=== PATIENT | female | born 1955 | race Caucasian/White ===

== ENCOUNTER 2018-09-15 14:50 | Inpatient (IN) | payer MEDICARE, OTHER ==
[~2018-09-15] VITALS: Ht 157.5 cm; Wt 70.8 kg
[2018-09-15] VITALS (8 sets, daily range): BP systolic 68–110; BP diastolic 45–62
[2018-09-15] MEDS ORDERED: IV NORMAL SALINE 1000ML BAG 1,000 ML IV ONE ×4 (15:30→18:45)
--- NOTE | 2018-09-15 15:50 | EKG ---
[facility] [address] [place] [address] Test Date: 2018-09-15 Test Time: 15:01:01 Pat Name: HERMINIO WASHINGTON Department: Room: Gender: F [employer]: : 1955 Requested By: ANILA CHEN Order Number: [id number] Reading MD: Nabil Chavez Measurements Intervals [place] Rate: 94 P: -25 [place]: 134 QRS: 3 QRSD: 84 T: 36 QT: 352 QTc: 446 Interpretive Statements SINUS RHYTHM VENTRICULAR PREMATURE COMPLEX(ES) ATRIAL PREMATURE COMPLEX(ES) QRS(T) CONTOUR ABNORMALITY CONSIDER ANTEROSEPTAL MYOCARDIAL DAMAGE ABNORMAL ECG RI6.01 No previous ECG available for comparison Electronically Signed On 09-22-2018 11:00:55 ILLUMINATOR by Nabil Chavez
[2018-09-15 15:53] LABS: BASO % 1 % (0-3); EOS % 0 % (0-3); HEMATOCRIT 40.2 % (36.0-47.0); HEMOGLOBIN 13.1 g/dL (12.0-15.5); LYMPH # 1.1 x10^3/uL (1.0-4.8); LYMPH % 18 % (24-48); MEAN CORPUSCULAR HEMOGLOBIN 30 pg (25-35); MEAN CORPUSCULAR HGB CONC 33 g/dL (31-37); MEAN CORPUSCULAR VOLUME 91 fL (79-100); MONO # 0.5 x10^3/uL (0.0-1.1); MONO % 8 % (0-9); NEUT # 4.3 x10^3uL (1.8-7.7); NEUT % 73 % (31-73); PLATELET COUNT 155 x10^3/uL (140-400); RED CELL DISTRIBUTION WIDTH 17.6 % (11.5-14.5); WHITE BLOOD COUNT 5.9 x10^3/uL (4.0-11.0)
--- NOTE | 2018-09-15 15:57 | PHYS DOC ---
Past Medical History Past Medical History: Depression, Hypertension, Other Additional Past Medical Histor: CHRONIC LOW BACK PAIN Past Surgical History: Hysterectomy, Other Additional Past Surgical Histo: CARPAL TUNNEL, ORTHOPEDIC BACK, ANKLE Alcohol Use: Heavy Drug Use: Opiates Social History Narrative: PAIN PUMP WITH MORPHINE AND FENTANYL Adult General Chief Complaint Chief Complaint: CHEST PAIN HPI HPI 63-year-old female presents to ER via EMS from her residence for complaints of dizziness intermittently since Friday. Patient states she has had 4 falls today following backwards and forwards. She reports she did strike her head denies loss of consciousness. Patient states today around 12 PM she started having midsternal chest pain which increases with inspiration. She reports this discomfort did start after her falls. Patient states it is a pressure and she's felt slightly short of air after her falls. Patient states she has had decreased blood pressures over the past couple of days. Patient states she has not taken any of her medications over the past several days which are cardiac medications and blood pressure medicine. Patient states she has chronic back pain and has a pain pump inserted in her right lower abdomen which provides fentanyl and morphine. Patient states she did go on a alcoholic binge last week with her last drink being on Friday. Patient denies any seizure-like activity. Patient denies any illicit drug use. Patient states she has had generalized fatigue denies any vomiting or diarrhea episodes. Patient states she has been having head pain, neck pain, and upper back pain since the falls. Patient states she has chronic lower back pain denies any acute change. Patient denies any incontinence of bowel. She reports she did have difficulty getting off of the floor following one of her falls and did have some incontinence of urine during the fall. Patient states she had control of her bladder after that and has had no other incontinent episodes. Patient states during one of her fall she did break her corrective lenses and has discomfort to the left side of her face. EMS administered aspirin 324 mg. Review of Systems Review of Systems Constitutional: Denies fever or chills. Reports generalized weakness/fatigue. Denies LOC Eyes: Denies change in visual acuity, redness, or eye pain. Reports tenderness at lt side of eye where her glasses broke during fall HENT: Denies nasal congestion/nose bleed or sore throat [] Respiratory: Denies cough. Reports SOA Cardiovascular:Reports mid CP GI: Denies abdominal pain, nausea, vomiting, bloody stools or diarrhea [] : Denies urinary sxs Musculoskeletal: Denies joint pain. Reports chronic lower back pain- denies acute changes since fall Integument: Denies rash or skin lesions [] Neurologic: Denies focal weakness or sensory changes. Reports diffuse CANALES after fall. Reports intermittent dizziness which has caused mult. falls Endocrine: Denies polyuria or polydipsia [] All other systems were reviewed and found to be within normal limits, except as documented in this note. Current Medications Current Medications Current Medications Medications (Trade) Dose Ordered Sig/Sunny Start Time Stop Time Status Last Admin Dose Admin Sodium Chloride 1,000 ml @ 1,000 mls/hr 1X ONCE 09/15/18 17:00 09/15/18 17:59 DC 09/15/18 17:09 1,000 MLS/HR Allergies Allergies Allergies Coded Allergies Type Severity Reaction Last Updated Verified tramadol Allergy Intermediate 04/19/16 Yes Physical Exam Physical Exam Constitutional: Well developed, well nourished, no acute distress, non-toxic appearance. Fatigued appearance. Clear speech- answering questions appropr. HENT: Normocephalic, swelling at lt adventist into lt maxillary around site of her corrective lenses w/bruising at adventist area- no abrasions/lacerations or open wounds, bilateral ears normal, mucous membranes pink/dry, no oral injury, nose normal. [] Eyes: 3mm PERRL, EOMI- no eye pain with movements, no nystagmus, conjunctiva normal, no discharge. [] Neck: Normal range of motion, initially denied neck pain- on palp. mid CSpine she had c/o tenderness- no palp. deformity/crepitus- CCollar placed on at time of initial exam, supple, no stridor. Trachea midline Cardiovascular: Heart rate regular rhythm, no murmur [] Lungs & Thorax: Bilateral breath sounds clear to auscultation. Resp. equal/ nonlabored. Tender on lt lateral side ribs with no palp. deformity/crepitus or visible injury Abdomen: Bowel sounds normal, soft, no tenderness- no rigidity/distention- palp. implanted pain pump rt lower abd- site is nontender, no masses, no pulsatile masses. [] Skin: Warm, dry Back: Tender on palp. upper/mid line thoracic spine- no palp. deformity/ crepitus or visible injury on back exam, no CVA tenderness. [] Extremities: Pelvis stable/nontender. No tenderness, no cyanosis, no clubbing, ROM intact, no edema. [] Neurologic: Alert and oriented X 3, normal motor function, normal sensory function, no focal deficits noted. [] Psychologic: Affect normal, judgement normal, mood normal. [] Current Patient Data Vital Signs Lab Values Laboratory Tests Test 09/15/18 15:40 09/15/18 16:31 White Blood Count 5.9 x10^3/uL (4.0-11.0) Red Blood Count 4.40 x10^6/uL (3.50-5.40) Hemoglobin 13.1 g/dL (12.0-15.5) Hematocrit 40.2 % (36.0-47.0) Mean Corpuscular Volume 91 fL (79-100) Mean Corpuscular Hemoglobin 30 pg (25-35) Mean Corpuscular Hemoglobin Concent 33 g/dL (31-37) Red Cell Distribution Width 17.6 % (11.5-14.5) H Platelet Count 155 x10^3/uL (140-400) Neutrophils (%) (Auto) 73 % (31-73) Lymphocytes (%) (Auto) 18 % (24-48) L Monocytes (%) (Auto) 8 % (0-9) Eosinophils (%) (Auto) 0 % (0-3) Basophils (%) (Auto) 1 % (0-3) Neutrophils # (Auto) 4.3 x10^3uL (1.8-7.7) Lymphocytes # (Auto) 1.1 x10^3/uL (1.0-4.8) Monocytes # (Auto) 0.5 x10^3/uL (0.0-1.1) Eosinophils # (Auto) 0.0 x10^3/uL (0.0-0.7) Basophils # (Auto) 0.0 x10^3/uL (0.0-0.2) Sodium Level 136 mmol/L (136-145) Potassium Level 3.2 mmol/L (3.5-5.1) L Chloride Level 88 mmol/L (98-107) L Carbon Dioxide Level > 45 mmol/L (21-32) H Anion Gap 3 (6-14) L Blood Urea Nitrogen 25 mg/dL (7-20) H Creatinine 1.4 mg/dL (0.6-1.0) H Estimated GFR (Cockcroft-Gault) 38.0 BUN/Creatinine Ratio 18 (6-20) Glucose Level 116 mg/dL (70-99) H Calcium Level 9.7 mg/dL (8.5-10.1) Magnesium Level 1.4 mg/dL (1.8-2.4) L Total Bilirubin 3.4 mg/dL (0.2-1.0) H Aspartate Amino Transferase (AST) 123 U/L (15-37) H Alanine Aminotransferase (ALT) 39 U/L (14-59) Alkaline Phosphatase 157 U/L (46-116) H Troponin I Quantitative 0.019 ng/mL (0.000-0.055) Total Protein 6.6 g/dL (6.4-8.2) Albumin 2.8 g/dL (3.4-5.0) L Albumin/Globulin Ratio 0.7 (1.0-1.7) L Ethyl Alcohol Level < 10 mg/dL (0-10) O2 Saturation 97 % (92-99) Arterial Blood pH 7.54 (7.35-7.45) H Arterial Blood pCO2 at Patient Temp 49 mmHg (35-46) H Arterial Blood pO2 at Patient Temp 88 mmHg (65-108) Arterial Blood HCO3 41 mmol/L (21-28) H Arterial Blood Base Excess 16 mmol/L (-3-3) H Oxyhemoglobin 95.9 % Methemoglobin 0.3 % (0.0-1.9) Carbon Monoxide, Quantitative 0.4 % (0.0-1.9) FiO2 28% nc Laboratory Tests 09/15/18 15:40 Laboratory Tests 09/15/18 15:40 EKG EKG EKG obtained 09/15/18 at [address] Linares Sinus rhythm PVCs/PACs Rate 94 No STEMI Radiology/Procedures Radiology/Procedures PROCEDURE: CHEST AP ONLY EXAM: Chest, single view. HISTORY: Chest pain. COMPARISON: None. FINDINGS: A frontal view of the chest obtained. There is no infiltrate, pleural effusion or pneumothorax. The heart is normal in size. There is a calcified granuloma within the left upper lobe. IMPRESSION: No acute pulmonary finding. Electronically signed by: Jessenia Matias MD (09/15/2018 3:53 PM) [place] [id number] DICTATED and SIGNED BY: JESSENIA MATIAS MD DATE: 09/15/18 1552 PROCEDURE: CT HEAD AND CERVICAL SPINE WO CT HEAD AND CERVICAL SPINE WO Clinical indications: MULTIPLE FALLS TODAY, DIZZINESS, NECK PAIN NONCONTRAST HEAD CT COMPARISON: April 20, 2016. Technique: Noncontrast axial cross sectional scanning of the head was performed. PQRS compliance Statement One or more of the following individualized dose reduction techniques were utilized for this study: 1. Automated exposure control 2. Adjustment of the mA and/or kV according to patient size 3. Use of iterative reconstruction technique Findings: No acute intracranial hemorrhage or midline shift or mass-effect or hydrocephalus or extra-axial fluid collection is seen. No focal hypodense area or sulci effacement is seen to indicate an acute infarct or edema radiographically. No skull fracture or pneumocephalus is seen. No opacification of the mastoid sinuses or the middle ear cavities is seen. Impression: No acute intracranial abnormality is seen. CERVICAL SPINE CT WITHOUT CONTRAST TECHNIQUE: Noncontrast helical CT scanning of the cervical spine was performed. Multiplanar 2-D reconstructions were generated. FINDINGS: There is grade 1 anterolisthesis of C4-5 which is new since the previous study. This is secondary to degenerative facet arthropathy. No acute fracture or perching of facet joints is evident. There is retrolisthesis of C6 on C7 with loss of the disc space here. There is severe degenerative disc space narrowing at C5-6. These findings were seen previously. No lytic process or discitis is seen. IMPRESSION: No acute fracture. Degenerative cervical spondylosis. Electronically signed by: Owen Gonzalez MD (09/15/2018 4:23 PM) [facility] DICTATED and SIGNED BY: OWEN GONZALEZ MD DATE: 09/15/18 1613 PROCEDURE: CT MAXILLOFACIAL WO CONTRAST EXAM: CT FACIAL BONES WITHOUT CONTRAST History: Fall, pain COMPARISON: None TECHNIQUE: Noncontrast images of the facial bones are performed. Coronal and sagittal reformatted images are also presented for interpretation. Exposure: One or more of the following individualized dose reduction techniques were utilized for this examination: 1. Automated exposure control 2. Adjustment of the mA and/or kV according to patient size 3. Use of iterative reconstruction technique FINDINGS: No fracture, dislocation or other acute bony abnormality is identified. There is a 1.2 cm density in the left cheek region could be secondary to soft tissue injury. The paranasal sinuses and mastoid air cells are clear, without air-fluid levels. The globes and orbits are intact in CT appearance. There is no retrobulbar hematoma. IMPRESSION: 1. 1.2 cm density identified in the left cheek region probably secondary to soft tissue injury. 2. No acute osseous findings. Electronically signed by: Yamil Cárdenas MD (09/15/2018 4:33 PM) [id number] DICTATED and SIGNED BY: YAMIL CÁRDENAS MD DATE: 09/15/181622 Course & Med Decision Making Course & Med Decision Making Pertinent Labs and Imaging studies reviewed. (See chart for details) Discussed test results with pt- CCollar was removed following CT results of CSpine with no acute findings. EKG with no acute STEMI and troponin was <0.017. She remains A&Ox3. Her BP remains in 80-90 systolics. IV flds infusing. She has had no change in MS. Discussed thoracic CT results with nondisplaced fx at lt side 12th rib- which pt is tender at this site. No crepitus on re-exam and no visible injury/bruising at site. She does have soft tissue swelling lt side face at site of her glasses- she had broke lt lense during fall. She denies eye pain. She reports without lt lense her vision is blurred which is NL without her glasses on she reports. She denies CP/SOA. Discussed admission and she is agreeable with plan. Pt's labs showed K+ at 3.2 and Mg at 1.4 so PO replacement ordered. Pt's CO2 on labs was >45 she was placed on O2 at time of arrival with O2 sat at 88% so ABGs were obtained on O2 at 2L via NC and results were given to Dr. Linares by RT- with improved O2 sat of 97% and CO2 improved. EKG with no acute ST elevation/STEMI and troponin was 0.019. 1740: Spoke with Dr. Sesay, hospitalist and discussed pt's case and admit plan. With pt having etoh hx/hypotension will admit ICU for further eval. and monitoring. Pt has continued to have fluctuation in BP- after 1L NS bolus BP currently 89/56 HR 89 O2 sat 100% with O2 via NC at 2L. 2nd L NS bolus being given. Pt has remained A&Ox3 with no seizure like activity or change in MS. [place] Disclaimer [place] Disclaimer This electronic medical record was generated, in whole or in part, using a voice recognition dictation system. Departure Departure Referrals: LIBIA CUELLO (PCP) [place] Potassium Chloride (POTASSIUM CHLORIDE) 20 Meq Tablet.er 20 MEQ PO BID for diuretic therapy for 7 Days, #14 TAB.SR Prov: KEL IVORY MD 09/23/18 Bumetanide (BUMETANIDE) 1 Mg Tablet 1 TAB PO BID for edema for 7 Days, #14 TAB 1 Refill Prov: KEL IVORY MD 09/23/18 Ciprofloxacin (CIPRO) 500 Mg/5 Ml Doris.mc.rec 500 MG PO BID for UTI for 3 Days, #6 SUSPENSION Prov: KEL IVORY MD 09/23/18 Thiamine Mononitrate (VITAMIN B-1) 100 Mg Tablet 100 MG PO DAILY for SUPPLEMENT for 30 Days, #30 TAB Prov: KEL IVORY MD 09/23/18 Folic Acid (FOLIC ACID) 1 Mg Tablet 1 MG PO DAILY for SUPPLEMENT for 30 Days, #30 TAB Prov: KEL IVORY MD 09/23/18 Critical Care Time Critical care time was 30-45 minutes exclusive of procedures. ANILA CHEN APRN Sep 15, 2018 15:57
[2018-09-15 16:11] LABS: BLOOD UREA NITROGEN 25 mg/dL (7-20); BUN/CREATININE RATIO 18 (6-20); CALCIUM 9.7 mg/dL (8.5-10.1); CHLORIDE 88 mmol/L (98-107); CREATININE 1.4 mg/dL (0.6-1.0); GLUCOSE 116 mg/dL (70-99); POTASSIUM 3.2 mmol/L (3.5-5.1); SODIUM 136 mmol/L (136-145)
[2018-09-15 16:16] LABS: ALBUMIN 2.8 g/dL (3.4-5.0); ALBUMIN/GLOBULIN RATIO 0.7 (1.0-1.7); ALK PHOS 157 U/L (46-116); ALT (SGPT) 39 U/L (14-59); AST (SGOT) 123 U/L (15-37); MAGNESIUM 1.4 mg/dL (1.8-2.4); TOTAL BILIRUBIN 3.4 mg/dL (0.2-1.0); TOTAL PROTEIN 6.6 g/dL (6.4-8.2)
[2018-09-15 16:20] LABS: ANION GAP 3 (6-14); CARBON DIOXIDE > 45 mmol/L (21-32)
--- NOTE | 2018-09-15 16:22 | RAD ---
EXAM: Thoracic spine CT without contrast. HISTORY: Falls. Pain. TECHNIQUE: Computed tomographic images of the lumbar spine were obtained without contrast. Multiplanar reformatting was performed. *One or more of the following individualized dose reduction techniques were utilized for this examination: 1. Automated exposure control. 2. Adjustment of the mA and/or kV according to patient size. 3. Use of iterative reconstruction technique. COMPARISON: None. FINDINGS: There is mild thoracic scoliosis. There is minimal anterolisthesis at the upper thoracic levels. There is minimal degenerative endplate remodeling with anterior spurring at the mid and lower thoracic levels. There is no suspicious lytic or sclerotic osseous lesion. There is and intrathecal pain pump terminating within the left dorsal aspect of the central canal at the mid aspect of T9. There is degenerative change involving the cervical spine, better characterized on the cervical spine CT performed on the same date. There is cervical kyphosis and multilevel listhesis and complete loss of disc space at C6-C7. There is lucency traversing the medial aspect of the left 12th rib at the costovertebral junction, possibly a nondisplaced fracture. There is a suspected healed fracture involving the posterior left 11th rib. There are disc bulges at multiple levels. There is no significant thoracic foraminal or central canal stenosis. There is posterior dependent atelectasis. There is no pleural effusion or pneumothorax. There are calcified granulomas. The heart is normal in size. There is hepatic steatosis. IMPRESSION: 1. Lucency traversing the medial aspect of the left 12th rib near the costovertebral junction, suggesting a nondisplaced fracture. Correlate for pain in this location. 2. Mild multilevel degenerative change throughout the thoracic spine. 3. Degenerative change involving the cervical spine. Please refer to the separate cervical spine CT report on the same date for details regarding the cervical spine. 4. Hepatic steatosis. 5. Intrathecal pain pump terminating at T9. Electronically signed by: Jessenia Rios MD (09/15/2018 4:19 PM) [place] [id number]
--- NOTE | 2018-09-15 16:26 | RAD ---
CT HEAD AND CERVICAL SPINE WO Clinical indications: MULTIPLE FALLS TODAY, DIZZINESS, NECK PAIN NONCONTRAST HEAD CT COMPARISON: April 20, 2016. Technique: Noncontrast axial cross sectional scanning of the head was performed. PQRS compliance Statement One or more of the following individualized dose reduction techniques were utilized for this study: 1. Automated exposure control 2. Adjustment of the mA and/or kV according to patient size 3. Use of iterative reconstruction technique Findings: No acute intracranial hemorrhage or midline shift or mass-effect or hydrocephalus or extra-axial fluid collection is seen. No focal hypodense area or sulci effacement is seen to indicate an acute infarct or edema radiographically. No skull fracture or pneumocephalus is seen. No opacification of the mastoid sinuses or the middle ear cavities is seen. Impression: No acute intracranial abnormality is seen. CERVICAL SPINE CT WITHOUT CONTRAST TECHNIQUE: Noncontrast helical CT scanning of the cervical spine was performed. Multiplanar 2-D reconstructions were generated. FINDINGS: There is grade 1 anterolisthesis of C4-5 which is new since the previous study. This is secondary to degenerative facet arthropathy. No acute fracture or perching of facet joints is evident. There is retrolisthesis of C6 on C7 with loss of the disc space here. There is severe degenerative disc space narrowing at C5-6. These findings were seen previously. No lytic process or discitis is seen. IMPRESSION: No acute fracture. Degenerative cervical spondylosis. Electronically signed by: Murphy Gonzalez MD (09/15/2018 4:23 PM) [facility]
--- NOTE | 2018-09-15 16:36 | RAD ---
EXAM: CT FACIAL BONES WITHOUT CONTRAST History: Fall, pain COMPARISON: None TECHNIQUE: Noncontrast images of the facial bones are performed. Coronal and sagittal reformatted images are also presented for interpretation. Exposure: One or more of the following individualized dose reduction techniques were utilized for this examination: 1. Automated exposure control 2. Adjustment of the mA and/or kV according to patient size 3. Use of iterative reconstruction technique FINDINGS: No fracture, dislocation or other acute bony abnormality is identified. There is a 1.2 cm density in the left cheek region could be secondary to soft tissue injury. The paranasal sinuses and mastoid air cells are clear, without air-fluid levels. The globes and orbits are intact in CT appearance. There is no retrobulbar hematoma. IMPRESSION: 1. 1.2 cm density identified in the left cheek region probably secondary to soft tissue injury. 2. No acute osseous findings. Electronically signed by: Yamil Cárdenas MD (09/15/2018 4:33 PM) [id number]
[2018-09-15 17:14] LABS: BASE EXCESS COOX 16 mmol/L (-3-3); HCO3 COOX 41 mmol/L (21-28); METHEMOGLOBIN 0.3 % (0.0-1.9); OXYHEMOGLOBIN 95.9 %; PCO2 COOX 49 mmHg (35-46); PO2 COOX 88 mmHg (65-108); SAT O2 COOX 97 % (92-99)
[2018-09-15] MEDS ORDERED: ONDANSETRON PF 4 MG/2 ML VIAL. IV PRN (18:15)
[2018-09-15] MEDS ORDERED: ACETAMINOPHEN 325 MG TABLET. PO PRN (18:15)
[2018-09-15] MEDS ORDERED: POTASSIUM CHLORIDE 20 MEQ TABLET.ER. PO ONE ×2 (18:15→22:00)
[2018-09-15] MEDS: MAGNESIUM OXIDE 400 MG TABLET PO SCH (18:50)
[2018-09-15 18:55] LABS: BILIRUBIN,URINE SMALL (NEG); CLARITY,URINE CLOUDY; COLOR,URINE AMBER; NITRITE,URINE NEGATIVE (NEG); PH,URINE 6.5; PROTEIN,URINE NEGATIVE (NEG-TRACE)
[2018-09-15 19:08] LABS: HYALINE CASTS, URINE MANY /HPF; SQUAMOUS EPITHELIAL CELL,UR MOD /LPF
[2018-09-15 19:10] LABS: BACTERIA,URINE MANY /HPF (0-FEW); RBC,URINE 0 /HPF (0-2); WBC,URINE >40 /HPF (0-4)
[2018-09-15 19:13] LABS: GRANULAR CASTS,URINE OCCASIONAL /HPF
--- NOTE | 2018-09-15 21:28 | PDOC1 ---
History and Physical Date of Admission Date of Admission DATE: 09/15/18 TIME: 21:28 Identification/Chief Complaint Chief Complaint SEEN IN ER WITH complaints of dizziness intermittently since Friday. Patient states she has had 4 falls today following backwards and forwards. She reports she did strike her head denies loss of consciousness. Patient states today around 12 PM she started having midsternal chest pain which increases with inspiration. She reports this discomfort did start after her falls. Patient states it is a pressure and she's felt slightly short of air after her falls. Patient states she has had decreased blood pressures over the past couple of days. Patient states she has not taken any of her medications over the past several days which are cardiac medications and blood pressure medicine. Patient states she has chronic back pain and has a pain pump inserted in her right lower abdomen which provides fentanyl and morphine. Patient states she did go on a alcoholic binge last week with her last drink being on Friday. Patient denies any seizure-like activity. Patient denies any illicit drug use.States she began drinking heavily after the of her a few yrs ago Past Medical History Past Medical History Past Medical History Past Medical History: Depression, Hypertension, Other Additional Past Medical Histor: CHRONIC LOW BACK PAIN Past Surgical History: Hysterectomy, Other Additional Past Surgical Histo: CARPAL TUNNEL, ORTHOPEDIC BACK, ANKLE Alcohol Use: Heavy Drug Use: Opiates Social History Narrative: PAIN PUMP WITH MORPHINE AND FENTANYL fhx depression Past Surgical History Past Surgical History: Other Family History Family History: Depression, Drug Abuse Social History Smoke: No ALCOHOL: heavy Drugs: None Current Problem List Problem List Problems Medical Problems: (1) Chest pain Status: Acute (2) Fall Status: Acute (3) Shortness of breath Status: Acute Current Medications Current Medications Current Medications Sodium Chloride 1,000 ml @ 1,000 mls/hr 1X ONCE IV Last administered on at 15:35; Start 09/15/18 at 15:30; Stop 09/15/18 at 16:29; Status DC Sodium Chloride 1,000 ml @ 1,000 mls/hr 1X ONCE IV Last administered on at 17:09; Start 09/15/18 at 17:00; Stop 09/15/18 at 17:59; Status DC Magnesium Oxide (Magnesium Oxide) 400 mg DAILY PO Last administered on at 18:50; Start 09/15/18 at 18:15 Potassium Chloride (Klor-Con) 40 meq 1X ONCE PO Last administered on at 18:50; Start 09/15/18 at 18:15; Stop 09/15/18 at 18:16; Status DC Ondansetron HCl (Zofran) 4 mg PRN Q8HRS PRN IV NAUSEA/VOMITING; Start 09/15/18 at 18:15; Stop 09/16/18 at 18:14 Acetaminophen (Tylenol) 650 mg PRN Q4HRS PRN PO FEVER; Start 09/15/18 at 18:15 ; Stop 09/16/18 at 18:14 Sodium Chloride 1,000 ml @ 1,000 mls/hr 1X ONCE IV Last administered on at 18:51; Start 09/15/18 at 18:45; Stop 09/15/18 at 19:44; Status DC Sodium Chloride 1,000 ml @ 150 mls/hr 1X ONCE IV ; Start 09/15/18 at 18:45; Stop 09/16/18 at 01:24 Allergies Allergies: Coded Allergies: tramadol (Verified Allergy, Intermediate, 04/19/16) ROS Review of System Review of Systems Review of Systems Constitutional: Denies fever or chills [] Eyes: Denies change in visual acuity, redness, or eye pain [] HENT: Denies nasal congestion or sore throat [] Respiratory: Denies cough or shortness of breath [] Cardiovascular: No additional information not addressed in HPI [] GI: Denies abdominal pain, nausea, vomiting, bloody stools or diarrhea [] : Denies dysuria or hematuria [] Musculoskeletal: Denies back pain or joint pain [] Integument: Denies rash or skin lesions [] Neurologic: Denies headache, focal weakness or sensory changes [] Endocrine: Denies polyuria or polydipsia [] 14 pt systems were reviewed and found to be within normal limits, except as documented General: YES: Fatigue PSYCHOLOGICAL ROS: YES: Anxiety, Depression HEENT: No: Heacaches, Visual Changes, Hearing change, Nasal congestion, Nasal discharge, Oral lesions, Sinus pain, Sore Throat, Epistaxis, Sneezing, Snoring, Tinnitus, Vertigo, Vocal changes, Other ALLERGY AND IMMUNOLOGY: No: Hives, Insect Bite Sensitivity, Itchy/Watery Eyes, Nasal Congestion, Post Nasal Drip, Seasonal Allergies, Other Hematological and Lymphatic: No: Bleeding Problems, Blood Clots, Blood Transfusions, Brusing, Night Sweats, Pallor, Swollen Lymph Nodes, Other ENDOCRINE: No: Breast Changes, Galactorrhea, Hair Pattern Changes, Hot Flashes , Malaise/lethargy, Mood Swings, Palpitations, Polydipsia/polyuria, Skin Changes , Temperature Intolerance, Unexpected Weight Changes, Other Respiratory: No: Cough, Hemoptysis, Orthopnea, Pleuritic Pain, Shortness of breath, SOB with excertion, Sputum Changes, Stridor, Tachypnea, Wheezing, Other Cardiovascular: yes Chest Pain Genitourinary: No Dysuria, No Frequency, No Incontinence, No Hematuria, No Retention, No Discharge, No Urgency, No Pain, No Flank Pain, No Other, No , No , No , No , No , No , No Musculoskeletal: Yes Gait Disturbance, Yes Joint Stiffness Neurological: Yes Dizziness, Yes Gait Disturbance Physical Exam Physical Exam Physical Exam Physical Exam Constitutional: Well developed, well nourished, no acute distress, non-toxic appearance. [] HENT: Normocephalic, atraumatic, bilateral external ears normal, oropharynx moist, no oral exudates, nose normal. [] Eyes: PERRLA, EOMI, conjunctiva normal, no discharge. [] Neck: Normal range of motion, no tenderness, supple, no stridor. [] Cardiovascular:Heart rate regular rhythm, no murmur [] Lungs & Thorax: Bilateral breath sounds clear to auscultation [] Abdomen: Bowel sounds normal, soft, no tenderness, no masses, no pulsatile masses. [] Skin: Warm, dry, no erythema, no rash. [] Back: No tenderness, no CVA tenderness. [] Extremities: No tenderness, no cyanosis, no clubbing, ROM intact, no edema. [] Neurologic: Alert and oriented X 3, normal motor function, normal sensory function, no focal deficits noted. [] Psychologic: Affect normal, judgement poor, mood depressed. [] General: Oriented X3, Cooperative, mild distress HEENT: PERRLA, EOMI Lungs: Clear to auscultation Heart: RRR Breasts: Not examined Abdomen: Normal bowel sounds, Soft Rectal Exam: not examined PELVIC: Examination not indicated Extremities: No cyanosis, No edema Neuro: Normal speech, Cranial nerves 3-12 NL Vitals Vitals Vital Signs Date Time Temp Pulse Resp B/P (MAP) Pulse Ox O2 Delivery O2 Flow Rate FiO2 09/15/18 19:20 108/64 (79) 09/15/18 18:36 86 16 100 09/15/18 17:30 Room Air 09/15/18 15:09 97.9 97.9 Labs Labs Laboratory Tests Test 09/15/18 15:40 09/15/18 16:31 09/15/18 18:33 White Blood Count 5.9 x10^3/uL (4.0-11.0) Red Blood Count 4.40 x10^6/uL (3.50-5.40) Hemoglobin 13.1 g/dL (12.0-15.5) Hematocrit 40.2 % (36.0-47.0) Mean Corpuscular Volume 91 fL (79-100) Mean Corpuscular Hemoglobin 30 pg (25-35) Mean Corpuscular Hemoglobin Concent 33 g/dL (31-37) Red Cell Distribution Width 17.6 % (11.5-14.5) Platelet Count 155 x10^3/uL (140-400) Neutrophils (%) (Auto) 73 % (31-73) Lymphocytes (%) (Auto) 18 % (24-48) Monocytes (%) (Auto) 8 % (0-9) Eosinophils (%) (Auto) 0 % (0-3) Basophils (%) (Auto) 1 % (0-3) Neutrophils # (Auto) 4.3 x10^3uL (1.8-7.7) Lymphocytes # (Auto) 1.1 x10^3/uL (1.0-4.8) Monocytes # (Auto) 0.5 x10^3/uL (0.0-1.1) Eosinophils # (Auto) 0.0 x10^3/uL (0.0-0.7) Basophils # (Auto) 0.0 x10^3/uL (0.0-0.2) Sodium Level 136 mmol/L (136-145) Potassium Level 3.2 mmol/L (3.5-5.1) Chloride Level 88 mmol/L (98-107) Carbon Dioxide Level > 45 mmol/L (21-32) Anion Gap 3 (6-14) Blood Urea Nitrogen 25 mg/dL (7-20) Creatinine 1.4 mg/dL (0.6-1.0) Estimated GFR (Cockcroft-Gault) 38.0 BUN/Creatinine Ratio 18 (6-20) Glucose Level 116 mg/dL (70-99) Calcium Level 9.7 mg/dL (8.5-10.1) Magnesium Level 1.4 mg/dL (1.8-2.4) Total Bilirubin 3.4 mg/dL (0.2-1.0) Aspartate Amino Transf (AST/SGOT) 123 U/L (15-37) Alanine Aminotransferase (ALT/SGPT) 39 U/L (14-59) Alkaline Phosphatase 157 U/L (46-116) Troponin I Quantitative 0.019 ng/mL (0.000-0.055) Total Protein 6.6 g/dL (6.4-8.2) Albumin 2.8 g/dL (3.4-5.0) Albumin/Globulin Ratio 0.7 (1.0-1.7) Ethyl Alcohol Level < 10 mg/dL (0-10) O2 Saturation 97 % (92-99) Arterial Blood pH 7.54 (7.35-7.45) Arterial Blood pCO2 at Patient Temp 49 mmHg (35-46) Arterial Blood pO2 at Patient Temp 88 mmHg (65-108) Arterial Blood HCO3 41 mmol/L (21-28) Arterial Blood Base Excess 16 mmol/L (-3-3) Oxyhemoglobin 95.9 % Methemoglobin 0.3 % (0.0-1.9) Carbon Monoxide, Quantitative 0.4 % (0.0-1.9) FiO2 28% nc Urine Collection Type Unknown Urine Color [place] Urine Clarity Cloudy Urine pH 6.5 Urine Specific [place] 1.015 Urine Protein Negative mg/dL (NEG-TRACE) Urine Glucose (UA) Negative mg/dL (NEG) Urine Ketones (Stick) Negative mg/dL (NEG) Urine Blood Negative (NEG) Urine Nitrite Negative (NEG) Urine Bilirubin Small (NEG) Urine Urobilinogen Dipstick 2.0 mg/dL (0.2 mg/dL) Urine Leukocyte Esterase Large (NEG) Urine RBC 0 /HPF (0-2) Urine WBC >40 /HPF (0-4) Urine Squamous Epithelial Cells Mod /LPF Urine Transitional Epithelial Cells Few /LPF Urine Renal Epithelial Cells Occ /LPF Urine Bacteria Many /HPF (0-FEW) Urine Hyaline Casts Many /HPF Urine Granular Casts Occasional /HPF Urine Mucus Slight /LPF Laboratory Tests Test 09/15/18 15:40 09/15/18 16:31 09/15/18 18:33 White Blood Count 5.9 x10^3/uL (4.0-11.0) Red Blood Count 4.40 x10^6/uL (3.50-5.40) Hemoglobin 13.1 g/dL (12.0-15.5) Hematocrit 40.2 % (36.0-47.0) Mean Corpuscular Volume 91 fL (79-100) Mean Corpuscular Hemoglobin 30 pg (25-35) Mean Corpuscular Hemoglobin Concent 33 g/dL (31-37) Red Cell Distribution Width 17.6 % (11.5-14.5) Platelet Count 155 x10^3/uL (140-400) Neutrophils (%) (Auto) 73 % (31-73) Lymphocytes (%) (Auto) 18 % (24-48) Monocytes (%) (Auto) 8 % (0-9) Eosinophils (%) (Auto) 0 % (0-3) Basophils (%) (Auto) 1 % (0-3) Neutrophils # (Auto) 4.3 x10^3uL (1.8-7.7) Lymphocytes # (Auto) 1.1 x10^3/uL (1.0-4.8) Monocytes # (Auto) 0.5 x10^3/uL (0.0-1.1) Eosinophils # (Auto) 0.0 x10^3/uL (0.0-0.7) Basophils # (Auto) 0.0 x10^3/uL (0.0-0.2) Sodium Level 136 mmol/L (136-145) Potassium Level 3.2 mmol/L (3.5-5.1) Chloride Level 88 mmol/L (98-107) Carbon Dioxide Level > 45 mmol/L (21-32) Anion Gap 3 (6-14) Blood Urea Nitrogen 25 mg/dL (7-20) Creatinine 1.4 mg/dL (0.6-1.0) Estimated GFR (Cockcroft-Gault) 38.0 BUN/Creatinine Ratio 18 (6-20) Glucose Level 116 mg/dL (70-99) Calcium Level 9.7 mg/dL (8.5-10.1) Magnesium Level 1.4 mg/dL (1.8-2.4) Total Bilirubin 3.4 mg/dL (0.2-1.0) Aspartate Amino Transf (AST/SGOT) 123 U/L (15-37) Alanine Aminotransferase (ALT/SGPT) 39 U/L (14-59) Alkaline Phosphatase 157 U/L (46-116) Troponin I Quantitative 0.019 ng/mL (0.000-0.055) Total Protein 6.6 g/dL (6.4-8.2) Albumin 2.8 g/dL (3.4-5.0) Albumin/Globulin Ratio 0.7 (1.0-1.7) Ethyl Alcohol Level < 10 mg/dL (0-10) O2 Saturation 97 % (92-99) Arterial Blood pH 7.54 (7.35-7.45) Arterial Blood pCO2 at Patient Temp 49 mmHg (35-46) Arterial Blood pO2 at Patient Temp 88 mmHg (65-108) Arterial Blood HCO3 41 mmol/L (21-28) Arterial Blood Base Excess 16 mmol/L (-3-3) Oxyhemoglobin 95.9 % Methemoglobin 0.3 % (0.0-1.9) Carbon Monoxide, Quantitative 0.4 % (0.0-1.9) FiO2 28% nc Urine Collection Type Unknown Urine Color [place] Urine Clarity Cloudy Urine pH 6.5 Urine Specific [place] 1.015 Urine Protein Negative mg/dL (NEG-TRACE) Urine Glucose (UA) Negative mg/dL (NEG) Urine Ketones (Stick) Negative mg/dL (NEG) Urine Blood Negative (NEG) Urine Nitrite Negative (NEG) Urine Bilirubin Small (NEG) Urine Urobilinogen Dipstick 2.0 mg/dL (0.2 mg/dL) Urine Leukocyte Esterase Large (NEG) Urine RBC 0 /HPF (0-2) Urine WBC >40 /HPF (0-4) Urine Squamous Epithelial Cells Mod /LPF Urine Transitional Epithelial Cells Few /LPF Urine Renal Epithelial Cells Occ /LPF Urine Bacteria Many /HPF (0-FEW) Urine Hyaline Casts Many /HPF Urine Granular Casts Occasional /HPF Urine Mucus Slight /LPF Images Images EXAM: CT FACIAL BONES WITHOUT CONTRAST History: Fall, pain COMPARISON: None TECHNIQUE: Noncontrast images of the facial bones are performed. Coronal and sagittal reformatted images are also presented for interpretation. Exposure: One or more of the following individualized dose reduction techniques were utilized for this examination: 1. Automated exposure control 2. Adjustment of the mA and/or kV according to patient size 3. Use of iterative reconstruction technique FINDINGS: No fracture, dislocation or other acute bony abnormality is identified. There is a 1.2 cm density in the left cheek region could be secondary to soft tissue injury. The paranasal sinuses and mastoid air cells are clear, without air-fluid levels. The globes and orbits are intact in CT appearance. There is no retrobulbar hematoma. IMPRESSION: 1. 1.2 cm density identified in the left cheek region probably secondary to soft tissue injury. 2. No acute osseous findings. Electronically signed by: Yamil Cárdenas MD (09/15/2018 4:33 PM) [facility] CT HEAD AND CERVICAL SPINE WO Clinical indications: MULTIPLE FALLS TODAY, DIZZINESS, NECK PAIN NONCONTRAST HEAD CT COMPARISON: April 20, 2016. Technique: Noncontrast axial cross sectional scanning of the head was performed. PQRS compliance Statement One or more of the following individualized dose reduction techniques were utilized for this study: 1. Automated exposure control 2. Adjustment of the mA and/or kV according to patient size 3. Use of iterative reconstruction technique Findings: No acute intracranial hemorrhage or midline shift or mass-effect or hydrocephalus or extra-axial fluid collection is seen. No focal hypodense area or sulci effacement is seen to indicate an acute infarct or edema radiographically. No skull fracture or pneumocephalus is seen. No opacification of the mastoid sinuses or the middle ear cavities is seen. Impression: No acute intracranial abnormality is seen. CERVICAL SPINE CT WITHOUT CONTRAST TECHNIQUE: Noncontrast helical CT scanning of the cervical spine was performed. Multiplanar 2-D reconstructions were generated. FINDINGS: There is grade 1 anterolisthesis of C4-5 which is new since the previous study. This is secondary to degenerative facet arthropathy. No acute fracture or perching of facet joints is evident. There is retrolisthesis of C6 on C7 with loss of the disc space here. There is severe degenerative disc space narrowing at C5-6. These findings were seen previously. No lytic process or discitis is seen. IMPRESSION: No acute fracture. Degenerative cervical spondylosis. Electronically signed by: Owen Gonzalez MD (09/15/2018 4:23 PM) [facility] DICTATED and SIGNED BY: OWEN GONZALEZ MD DATE: 09/15/18 1613 VTE Prophylaxis Ordered VTE Prophylaxis Devices: Yes VTE Pharmacological Prophylaxi: Yes Assessment/Plan Assessment/Plan impression 1. MULTIPLE FALLS 2. grade 1 anterolisthesis of C4-5 which is new since the previous study. This is secondary to degenerative facet arthropathy. 3. Alcohol abuse 4. depression 5. hypotension sec to hypovolemia 6. uti 7. chest discomfort plan icu bed iv fluid support alcohol withdrawal precautions iv rocephin blood cult prn pressors iv cardiology consult echo 45 min cc time JEFERSON SPRINGER MD Sep 15, 2018 21:28
[2018-09-15] MEDS: IV NORMAL SALINE 1000ML BAG 1,500 ML IV SCH ×2 (21:44→22:43)
[2018-09-15] MEDS ORDERED: HALOPERIDOL LACTATE 5 MG/ML VIAL. IVP PRN (21:45)
[2018-09-15] MEDS ORDERED: IV NORMAL SALINE 500ML BAG 500 ML IV PRN (21:45)
[2018-09-15] MEDS ORDERED: NOREPINEPHRIN 8MG/250ML PREMIX 250 ML IV PRN (21:45)
[2018-09-15] MEDS ORDERED: diphenhydrAMINE 50 MG/ML VIAL IVP PRN (21:45)
[2018-09-15] MEDS ORDERED: LORazepam 1 MG TABLET PO PRN ×2 (21:45)
[2018-09-15] MEDS ORDERED: cloNIDine HCL 0.1 MG TABLET PO PRN (21:45)
[2018-09-15] MEDS ORDERED: MAGNESIUM SULFATE 1GM 100 ML IV ONE (22:00)
[2018-09-15] MEDS: cefTRIAXone IV Push 2 GM VIAL. IVP SCH (22:27)
[2018-09-15 22:48] LABS: PROTHROMBIN TIME PATIENT 14.1 SEC (11.7-14.0)
[2018-09-15 22:52] LABS: ALBUMIN 2.2 g/dL (3.4-5.0); DIRECT BILIRUBIN 1.6 mg/dL (0.0-0.2); TOTAL BILIRUBIN 2.1 mg/dL (0.2-1.0); TOTAL PROTEIN 5.1 g/dL (6.4-8.2)
[2018-09-16] VITALS (22 sets, daily range): BP systolic 79–140; BP diastolic 54–86
[2018-09-16 03:43] LABS: BASO % 1 % (0-3); EOS # 0.1 x10^3/uL (0.0-0.7); EOS % 2 % (0-3); HEMATOCRIT 34.3 % (36.0-47.0); HEMOGLOBIN 11.2 g/dL (12.0-15.5); LYMPH # 1.3 x10^3/uL (1.0-4.8); LYMPH % 22 % (24-48); MEAN CORPUSCULAR HEMOGLOBIN 30 pg (25-35); MEAN CORPUSCULAR HGB CONC 33 g/dL (31-37); MEAN CORPUSCULAR VOLUME 92 fL (79-100); MONO # 0.5 x10^3/uL (0.0-1.1); MONO % 9 % (0-9); NEUT # 4.1 x10^3uL (1.8-7.7); NEUT % 67 % (31-73); PLATELET COUNT 150 x10^3/uL (140-400); RED BLOOD COUNT 3.73 x10^6/uL (3.50-5.40); RED CELL DISTRIBUTION WIDTH 17.6 % (11.5-14.5); WHITE BLOOD COUNT 6.1 x10^3/uL (4.0-11.0)
[2018-09-16 03:52] LABS: ALBUMIN 2.3 g/dL (3.4-5.0); ALBUMIN/GLOBULIN RATIO 0.7 (1.0-1.7); CALCIUM 7.9 mg/dL (8.5-10.1); CREATININE 1.1 mg/dL (0.6-1.0); GFR 50.2; TOTAL PROTEIN 5.6 g/dL (6.4-8.2)
[2018-09-16 04:07] LABS: POTASSIUM 2.7 mmol/L (3.5-5.1)
[2018-09-16] MEDS ORDERED: POTASSIUM CHLORIDE 20 MEQ TABLET.ER. PO ONE (04:30)
[2018-09-16] MEDS ORDERED: VANCOMYCIN PER PHARMACY MC PRN (07:15)
[2018-09-16] MEDS ORDERED: VANCOMYCIN 1.5 GM in IV NORMAL SALINE 500ML BAG 500 ML IV ONE (08:00)
[2018-09-16] MEDS ORDERED: LORazepam 1 MG TABLET PO PRN (08:30)
[2018-09-16] MEDS ORDERED: FOLIC ACID 1 MG TABLET. PO SCH (09:00)
[2018-09-16] MEDS ORDERED: MULTIVITAMIN with MINERAL TABLET. PO SCH (09:00)
[2018-09-16] MEDS ORDERED: THIAMINE INJ 100 MG in IV DEXTROSE 5% 50 ML IV SCH (09:00)
--- NOTE | 2018-09-16 09:26 | PDOC2 ---
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 Reports that she drinks about 4-5 shots of whiskey daily. She has been on and off with her BP meds and sees Dr. Soni from [facility] for HTN management. She is also on lasix basically for water retention. From Friday to Friday, she has increased her ETOH intake to 6 shots and has not been drinking enough fluids and restarted her coreg, norvasc and lasix. No CAD and has had normal LHC about 2 yrs ago. Reports that starting yesterday she fell 4 times due to combination of losing balance and dizziness.She landed on her back one time and on her bottom on other times. She also has an intrathecal pump which she could not adjust containing fentanyl and morphine for chronic back pain. Denies any palpitations, nausea or vomiting. Her chest pain is tightness when deep breathing midchest after the fall but prior no exertional CP nor HUTSON. Her pain is controlled enough on her back that she is able to do her ADLS. She increased her ETOH intake due to her anniversary coming, lives alone and feels depressed. PAST MEDICAL HISTORY Cardiovascular: HTN Pulmonary: No pertinent hx CENTRAL NERVOUS SYSTEM: Carpal Tunnel Syndrome GI: No pertinent hx Heme/Onc: No pertinent hx Hepatobiliary: No pertinent hx Psych: Other (alcoholism) Musculoskeletal: low back pain, Osteoarthritis Rheumatologic: No pertinent hx Infectious disease: No pertinent hx ENT: No pertinent hx Renal/: No pertinent hx Endocrine: No pertinent hx Dermatology: No pertinent hx PAST SURGICAL HISTORY Past Surgical History: Hysterectomy, Other (CTS release to wrist; 4 multiple lumba surgeries) FAMILY HISTORY Family History: Coronary Artery Disease (father at 48) SOCIAL HISTORY Smoke: No ALCOHOL: heavy Drugs: None Lives: Alone CURRENT MEDICATIONS CURRENT MEDICATIONS Current Medications Medications (Trade) Dose Ordered Sig/Sunny Route PRN Reason Start Time Stop Time Status Last Admin Dose Admin Sodium Chloride 1,000 ml @ 1,000 mls/hr 1X ONCE IV 09/15/18 15:30 09/15/18 16:29 DC 09/15/18 15:35 Sodium Chloride 1,000 ml @ 1,000 mls/hr 1X ONCE IV 09/15/18 17:00 09/15/18 17:59 DC 09/15/18 17:09 Magnesium Oxide (Magnesium Oxide) 400 mg DAILY PO 09/15/18 18:15 09/15/18 18:50 Potassium Chloride (Klor-Con) 40 meq 1X ONCE PO 09/15/18 18:15 09/15/18 18:16 DC 09/15/18 18:50 Sodium Chloride 1,000 ml @ 1,000 mls/hr 1X ONCE IV 09/15/18 18:45 09/15/18 19:44 DC 09/15/18 18:51 Sodium Chloride 1,000 ml @ 150 mls/hr 1X ONCE IV 09/15/18 18:45 09/16/18 01:24 DC 09/15/18 22:35 Ceftriaxone Sodium (Rocephin) 2 gm Q24H IVP 09/15/18 22:00 09/15/18 22:27 Norepinephrine Bitartrate 250 ml @ 0 mls/hr CONT PRN IV SEE I/O RECORD 09/15/18 21:45 09/16/18 06:44 Magnesium Sulfate/ Dextrose 100 ml @ 100 mls/hr 1X ONCE IV 09/15/18 22:00 09/15/18 22:59 DC 09/15/18 22:22 Potassium Chloride (Klor-Con) 70 meq 1X ONCE PO 09/16/18 04:30 09/16/18 04:31 DC 09/16/18 04:36 ALLERGIES ALLERGIES: Coded Allergies: tramadol (Verified Allergy, Intermediate, 04/19/16) ROS Review of System 14 point ROS evaluated with pertinent positives noted per HPI PHYSICAL EXAM General: Alert, Oriented X3, Cooperative, No acute distress HEENT: Atraumatic, Mucous membr. moist/pink, Other (left facial contusion) Heart: Regular rate (SR), Normal S1, Normal S2, No murmurs Abdomen: Soft, No tenderness Extremities: No cyanosis, No edema Skin: No breakdown, No significant lesion Neuro: Normal speech, Sensation intact Psych/Mental Status: Mental status NL, Mood NL MUSCULOSKELETAL: Osteoarthritic changes both hands VITALS VITALS Vital Signs Date Time Temp Pulse Resp B/P (MAP) Pulse Ox O2 Delivery O2 Flow Rate FiO2 09/16/18 09:00 88 20 112/70 (84) 94 Room Air 09/16/18 08:00 98.3 98.3 09/16/18 04:00 2.0 LABS Lab: Laboratory Tests Test 09/15/18 15:40 09/15/18 16:31 09/15/18 18:33 09/15/18 21:15 White Blood Count 5.9 x10^3/uL (4.0-11.0) Red Blood Count 4.40 x10^6/uL (3.50-5.40) Hemoglobin 13.1 g/dL (12.0-15.5) Hematocrit 40.2 % (36.0-47.0) Mean Corpuscular Volume 91 fL (79-100) Mean Corpuscular Hemoglobin 30 pg (25-35) Mean Corpuscular Hemoglobin Concent 33 g/dL (31-37) Red Cell Distribution Width 17.6 % (11.5-14.5) Platelet Count 155 x10^3/uL (140-400) Neutrophils (%) (Auto) 73 % (31-73) Lymphocytes (%) (Auto) 18 % (24-48) Monocytes (%) (Auto) 8 % (0-9) Eosinophils (%) (Auto) 0 % (0-3) Basophils (%) (Auto) 1 % (0-3) Neutrophils # (Auto) 4.3 x10^3uL (1.8-7.7) Lymphocytes # (Auto) 1.1 x10^3/uL (1.0-4.8) Monocytes # (Auto) 0.5 x10^3/uL (0.0-1.1) Eosinophils # (Auto) 0.0 x10^3/uL (0.0-0.7) Basophils # (Auto) 0.0 x10^3/uL (0.0-0.2) Sodium Level 136 mmol/L (136-145) Potassium Level 3.2 mmol/L (3.5-5.1) Chloride Level 88 mmol/L (98-107) Carbon Dioxide Level > 45 mmol/L (21-32) Anion Gap 3 (6-14) Blood Urea Nitrogen 25 mg/dL (7-20) Creatinine 1.4 mg/dL (0.6-1.0) Estimated GFR (Cockcroft-Gault) 38.0 BUN/Creatinine Ratio 18 (6-20) Glucose Level 116 mg/dL (70-99) Calcium Level 9.7 mg/dL (8.5-10.1) Magnesium Level 1.4 mg/dL (1.8-2.4) Total Bilirubin 3.4 mg/dL (0.2-1.0) Aspartate Amino Transf (AST/SGOT) 123 U/L (15-37) Alanine Aminotransferase (ALT/SGPT) 39 U/L (14-59) Alkaline Phosphatase 157 U/L (46-116) Troponin I Quantitative 0.019 ng/mL (0.000-0.055) < 0.017 ng/mL (0.000-0.055) Total Protein 6.6 g/dL (6.4-8.2) Albumin 2.8 g/dL (3.4-5.0) Albumin/Globulin Ratio 0.7 (1.0-1.7) Ethyl Alcohol Level < 10 mg/dL (0-10) O2 Saturation 97 % (92-99) Arterial Blood pH 7.54 (7.35-7.45) Arterial Blood pCO2 at Patient Temp 49 mmHg (35-46) Arterial Blood pO2 at Patient Temp 88 mmHg (65-108) Arterial Blood HCO3 41 mmol/L (21-28) Arterial Blood Base Excess 16 mmol/L (-3-3) Oxyhemoglobin 95.9 % Methemoglobin 0.3 % (0.0-1.9) Carbon Monoxide, Quantitative 0.4 % (0.0-1.9) FiO2 28% nc Urine Collection Type Unknown Urine Color [place] Urine Clarity Cloudy Urine pH 6.5 Urine Specific [place] 1.015 Urine Protein Negative mg/dL (NEG-TRACE) Urine Glucose (UA) Negative mg/dL (NEG) Urine Ketones (Stick) Negative mg/dL (NEG) Urine Blood Negative (NEG) Urine Nitrite Negative (NEG) Urine Bilirubin Small (NEG) Urine Urobilinogen Dipstick 2.0 mg/dL (0.2 mg/dL) Urine Leukocyte Esterase Large (NEG) Urine RBC 0 /HPF (0-2) Urine WBC >40 /HPF (0-4) Urine Squamous Epithelial Cells Mod /LPF Urine Transitional Epithelial Cells Few /LPF Urine Renal Epithelial Cells Occ /LPF Urine Bacteria Many /HPF (0-FEW) Urine Hyaline Casts Many /HPF Urine Granular Casts Occasional /HPF Urine Mucus Slight /LPF Test 09/15/18 22:25 09/16/18 02:45 Prothrombin Time 14.1 SEC (11.7-14.0) Prothromb Time International Ratio 1.1 (0.8-1.1) Fibrinogen 242 mg/dL (200-440) Lactic Acid Level 3.3 mmol/L (0.4-2.0) 1.4 mmol/L (0.4-2.0) Total Bilirubin 2.1 mg/dL (0.2-1.0) 2.0 mg/dL (0.2-1.0) Direct Bilirubin 1.6 mg/dL (0.0-0.2) Aspartate Amino Transf (AST/SGOT) 94 U/L (15-37) 108 U/L (15-37) Alanine Aminotransferase (ALT/SGPT) 31 U/L (14-59) 30 U/L (14-59) Alkaline Phosphatase 119 U/L (46-116) 130 U/L (46-116) Total Protein 5.1 g/dL (6.4-8.2) 5.6 g/dL (6.4-8.2) Albumin 2.2 g/dL (3.4-5.0) 2.3 g/dL (3.4-5.0) Procalcitonin 0.52 ng/mL (0.00-0.10) White Blood Count 6.1 x10^3/uL (4.0-11.0) Red Blood Count 3.73 x10^6/uL (3.50-5.40) Hemoglobin 11.2 g/dL (12.0-15.5) Hematocrit 34.3 % (36.0-47.0) Mean Corpuscular Volume 92 fL (79-100) Mean Corpuscular Hemoglobin 30 pg (25-35) Mean Corpuscular Hemoglobin Concent 33 g/dL (31-37) Red Cell Distribution Width 17.6 % (11.5-14.5) Platelet Count 150 x10^3/uL (140-400) Neutrophils (%) (Auto) 67 % (31-73) Lymphocytes (%) (Auto) 22 % (24-48) Monocytes (%) (Auto) 9 % (0-9) Eosinophils (%) (Auto) 2 % (0-3) Basophils (%) (Auto) 1 % (0-3) Neutrophils # (Auto) 4.1 x10^3uL (1.8-7.7) Lymphocytes # (Auto) 1.3 x10^3/uL (1.0-4.8) Monocytes # (Auto) 0.5 x10^3/uL (0.0-1.1) Eosinophils # (Auto) 0.1 x10^3/uL (0.0-0.7) Basophils # (Auto) 0.0 x10^3/uL (0.0-0.2) Sodium Level 137 mmol/L (136-145) Potassium Level 2.7 mmol/L (3.5-5.1) Chloride Level 97 mmol/L (98-107) Carbon Dioxide Level 34 mmol/L (21-32) Anion Gap 6 (6-14) Blood Urea Nitrogen 23 mg/dL (7-20) Creatinine 1.1 mg/dL (0.6-1.0) Estimated GFR (Cockcroft-Gault) 50.2 BUN/Creatinine Ratio 21 (6-20) Glucose Level 126 mg/dL (70-99) Calcium Level 7.9 mg/dL (8.5-10.1) Magnesium Level 1.7 mg/dL (1.8-2.4) Albumin/Globulin Ratio 0.7 (1.0-1.7) ASSESSMENT/PLAN ASSESSMENT/PLAN 1. Presyncope: Suspect from ETOH/opioids/BP meds and dehydration. 2. Heavy alcoholism with occasional binging. 3. Hypotension due to above. 4. LUIS 5. Depression: cymbalta use, Defer to PCP 6. Atypical CP: due to fall/rib fracture. no syncopal episode. No arrhythmias 7. Traumatic mechanical fall: left 12th rib nondisplaced fracture 8. Chronic back pain with intrathecal pump (fentanyl/morphine): noted severe cervical stenosis as well per CT 9. Hx of HTN 10. Hypokalemia/hypomagnesemia 11. Noncompliance: has been taken her meds on and off in the last few days 12. UTI Recommendations 1. Titrate off levophed per BP trend. Continue hydration. Hold BP meds for now (norvasc, coreg, lasix) 2. TTE today. Replace K and Mg per level. 3. Supportive care 4. May need pain mgmt consult. ETOH withdrawal protocol per PCP 5. Orthostatic readings when off levophed. 6. Discussed compliance and curbing ETOH. ROBBIE XIAO MD 09/16/188: CARDIAC CONSULT ASSESSMENT/PLAN ASSESSMENT/PLAN Patient seen and examined. Agree with ENVIRONMENT COORDINATOR's assessment and plan. Near syncope multifactorial Tele did not show any significant arrhythmias so far CP atypical and musculoskeletal 2D echo showed normal LV function Hole antihypertensives, hydrate IV and titrate pressors off as tolerated Importance of abstinence from alcohol abuse emphasized Thank you for your consultation KAYLYNN WILCOX APRN Sep 16, 2018 09:26 ROBBIE XIAO MD Sep 16, 2018 21:56
[2018-09-16 09:30] LABS: HEMATOCRIT 35.4 % (36.0-47.0); HEMOGLOBIN 11.6 g/dL (12.0-15.5); RED BLOOD COUNT 3.82 x10^6/uL (3.50-5.40); WHITE BLOOD COUNT 4.2 x10^3/uL (4.0-11.0)
--- NOTE | 2018-09-16 09:39 | NUR ---
SS following for discharge planning. Pt is from home and currently on room air. No discharge needs noted at this time. SS will continue to follow for pending discharge needs.
[2018-09-16] MEDS ORDERED: PANT20TA2 PO (09:56)
[2018-09-16] MEDS ORDERED: CARV25TA2 PO (09:56)
[2018-09-16] MEDS ORDERED: DULO60CA44 PO (09:56)
[2018-09-16] MEDS ORDERED: AMLO5TAB10 PO (09:56)
[2018-09-16] MEDS ORDERED: MIRT30TA3 PO (09:56)
[2018-09-16] MEDS ORDERED: FURO40TA4 PO (09:56)
[2018-09-16 09:58] LABS: CALCIUM 8.1 mg/dL (8.5-10.1); POTASSIUM 3.8 mmol/L (3.5-5.1)
[2018-09-16] MEDS: MULTIVIT INFUSN,ADULT 4,VIT K 10 ML, THIAMINE INJ 100 MG, FOLIC ACID INJ 1 MG in IV NOR... IV SCH (10:05)
[2018-09-16] MEDS: MAGNESIUM OXIDE 400 MG TABLET PO SCH (10:05)
[2018-09-16] MEDS: POTASSIUM CHLORIDE 20 MEQ TABLET.ER. PO SCH (10:05)
[2018-09-16] MEDS: LACTOBACILLUS RHAMNOSUS GG 1 CAPSULE. PO SCH ×2 (10:09→22:57)
[2018-09-16] MEDS ORDERED: MAGNESIUM SULFATE 2GM 50 ML IV ONE ×2 (10:15→16:00)
--- NOTE | 2018-09-16 14:20 | CARD ---
MR#: [id number] Date of Study: 09/16/2018 Ordering Physician: JEFERSON SPRINGER, Referring Physician: JEFERSON SPRINGER, Tech: Muriel Brooks RDCS APPROVED REPORT EXAM: Two-dimensional and M-mode echocardiogram with Doppler and color Doppler. Other Information Quality : Good INDICATION Chest Pain 2D DIMENSIONS RVDd2.2 (2.9-3.5cm)Left Atrium(2D)3.2 (1.6-4.0cm) IVSd0.7 (0.7-1.1cm)Aortic Root(2D)2.8 (2.0-3.7cm) LVDd4.1 (3.9-5.9cm)LVOT Diameter2.0 (1.8-2.4cm) PWd0.8 (0.7-1.1cm)LVDs2.2 (2.5-4.0cm) FS (%) 30.0 %SV57.2 ml LVEF(%)60.0 (>50%) Aortic Valve AoV Peak Arie.115.8cm/sAoV VTI18.6cm AO Peak GR.5.4mmHgLVOT VTI 13.24cm AO Mean GR.3mmHgAVA (VTI)2.14cm2 Mitral Valve MV E Ymmgxqbr04.7cm/sMV DECEL [id number] MV A Ufseyide07.2cm/sE/A Ratio0.9 TDI Lateral E' P. V9.85cm/sMedial E' P. V6.95cm/s E/Lateral E'7.0E/Medial E'9.9 Tricuspid Valve TR P. Srodhyvl125bp/sRAP [id number] TR Peak Gr.[id number] Pulmonary Vein S1 Sdiwxtqz36.9cm/sS2 Zaphapwo76.87cm/s D2 Wbvwsbho15.9cm/s LEFT VENTRICLE The left ventricle is normal size. There is normal left ventricular wall thickness. The left ventricu lar systolic function is normal and the ejection fraction is within normal range. The Ejection Fracti on is 55-60%. There is normal LV segmental wall motion. Transmitral Doppler flow pattern is Grade I-a bnormal relaxation pattern. RIGHT VENTRICLE The right ventricle is normal size. The right ventricular systolic function is normal. ATRIA The left atrium size is normal. The right atrium size is normal. The interatrial septum is intact wit h no evidence for an atrial septal defect or patent foramen ovale as noted on 2-D or Doppler imaging. AORTIC VALVE The aortic valve is calcified but opens well. Doppler and Color Flow revealed trace aortic regurgitat ion. There is no significant aortic valvular stenosis. MITRAL VALVE The mitral valve is calcified but opens well. Mitral annular calcification is mild. There is no evide nce of mitral valve prolapse. There is no mitral valve stenosis. Doppler and Color-flow revealed trac e mitral regurgitation. TRICUSPID VALVE The tricuspid valve is normal in structure and function. Doppler and Color Flow revealed mild tricusp id regurgitation. The PA pressure was estimated at 30 mmHg. There is no tricuspid valve stenosis. PULMONIC VALVE The pulmonic valve is not well visualized. Doppler and Color Flow revealed no pulmonic valvular regur gitation. There is no pulmonic valvular stenosis. GREAT VESSELS The aortic root is normal in size. The ascending aorta is normal in size. The IVC was not visualized. PERICARDIAL EFFUSION There is no evidence of significant pericardial effusion. Critical Notification Critical Value: No <Conclusion> The left ventricle is normal size. The left ventricular systolic function is normal and the ejection fraction is within normal range. The Ejection Fraction is 55-60%. There is no significant aortic valvular stenosis. Doppler and Color Flow revealed trace aortic regurgitation. Doppler and Color-flow revealed trace mitral regurgitation. Doppler and Color Flow revealed mild tricuspid regurgitation. The PA pressure was estimated at 30 mmHg. Signed by : Marcell Sanches MD Electronically Approved : 09/16/2018 14:20:29
[2018-09-16 14:45] LABS: BARBITURATES NEG (NEG); BENZODIAZEPINES NEG (NEG); CANNABINOIDS NEG (NEG); COCAINE NEG (NEG); METHADONE NEG (NEG); OPIATES POS (NEG); PHENCYCLIDINE NEG (NEG)
[2018-09-16 14:46] LABS: AMPHETAMINE/METHAMPHETAMINE NEG (NEG)
--- NOTE | 2018-09-16 15:30 | PDOC ---
PROGRESS NOTES Chief Complaint Chief Complaint 1. MULTIPLE FALLS 2. grade 1 anterolisthesis of C4-5 which is new since the previous study. This is secondary to degenerative facet arthropathy. 3. Alcohol abuse 4. depression 5. hypotension sec to hypovolemia 6. uti 7. chest discomfort plan: discontinue iv fluid support if patient is drinking well. alcohol withdrawal precautions iv rocephin blood cult prn pressors iv cardiology consult echo History of Present Illness History of Present Illness No complaints during my visit. Patient had no fever no CVA tenderness no hematuria reported no nausea or vomiting. Patient is still on the levophed but she is been weaned off the drip. Vitals Vitals Vital Signs Date Time Temp Pulse Resp B/P (MAP) Pulse Ox O2 Delivery O2 Flow Rate FiO2 09/16/18 14:00 95 16 90/57 (68) 95 Room Air 09/16/18 13:00 98.4 98.4 09/16/18 04:00 2.0 Physical Exam General: Alert, Oriented X3, Cooperative, No acute distress Heart: Regular rate (SR), Normal S1, Normal S2, No murmurs Abdomen: Soft, No tenderness Extremities: No cyanosis, No edema Skin: No breakdown, No significant lesion Labs LABS Laboratory Tests Test 09/15/18 15:40 09/15/18 16:31 09/15/18 18:33 09/15/18 19:30 White Blood Count 5.9 x10^3/uL (4.0-11.0) Red Blood Count 4.40 x10^6/uL (3.50-5.40) Hemoglobin 13.1 g/dL (12.0-15.5) Hematocrit 40.2 % (36.0-47.0) Mean Corpuscular Volume 91 fL (79-100) Mean Corpuscular Hemoglobin 30 pg (25-35) Mean Corpuscular Hemoglobin Concent 33 g/dL (31-37) Red Cell Distribution Width 17.6 % (11.5-14.5) Platelet Count 155 x10^3/uL (140-400) Neutrophils (%) (Auto) 73 % (31-73) Lymphocytes (%) (Auto) 18 % (24-48) Monocytes (%) (Auto) 8 % (0-9) Eosinophils (%) (Auto) 0 % (0-3) Basophils (%) (Auto) 1 % (0-3) Neutrophils # (Auto) 4.3 x10^3uL (1.8-7.7) Lymphocytes # (Auto) 1.1 x10^3/uL (1.0-4.8) Monocytes # (Auto) 0.5 x10^3/uL (0.0-1.1) Eosinophils # (Auto) 0.0 x10^3/uL (0.0-0.7) Basophils # (Auto) 0.0 x10^3/uL (0.0-0.2) Sodium Level 136 mmol/L (136-145) Potassium Level 3.2 mmol/L (3.5-5.1) Chloride Level 88 mmol/L (98-107) Carbon Dioxide Level > 45 mmol/L (21-32) Anion Gap 3 (6-14) Blood Urea Nitrogen 25 mg/dL (7-20) Creatinine 1.4 mg/dL (0.6-1.0) Estimated GFR (Cockcroft-Gault) 38.0 BUN/Creatinine Ratio 18 (6-20) Glucose Level 116 mg/dL (70-99) Calcium Level 9.7 mg/dL (8.5-10.1) Magnesium Level 1.4 mg/dL (1.8-2.4) Total Bilirubin 3.4 mg/dL (0.2-1.0) Aspartate Amino Transf (AST/SGOT) 123 U/L (15-37) Alanine Aminotransferase (ALT/SGPT) 39 U/L (14-59) Alkaline Phosphatase 157 U/L (46-116) Troponin I Quantitative 0.019 ng/mL (0.000-0.055) Total Protein 6.6 g/dL (6.4-8.2) Albumin 2.8 g/dL (3.4-5.0) Albumin/Globulin Ratio 0.7 (1.0-1.7) Ethyl Alcohol Level < 10 mg/dL (0-10) O2 Saturation 97 % (92-99) Arterial Blood pH 7.54 (7.35-7.45) Arterial Blood pCO2 at Patient Temp 49 mmHg (35-46) Arterial Blood pO2 at Patient Temp 88 mmHg (65-108) Arterial Blood HCO3 41 mmol/L (21-28) Arterial Blood Base Excess 16 mmol/L (-3-3) Oxyhemoglobin 95.9 % Methemoglobin 0.3 % (0.0-1.9) Carbon Monoxide, Quantitative 0.4 % (0.0-1.9) FiO2 28% nc Urine Collection Type Unknown Urine Color [place] Urine Clarity Cloudy Urine pH 6.5 Urine Specific [place] 1.015 Urine Protein Negative mg/dL (NEG-TRACE) Urine Glucose (UA) Negative mg/dL (NEG) Urine Ketones (Stick) Negative mg/dL (NEG) Urine Blood Negative (NEG) Urine Nitrite Negative (NEG) Urine Bilirubin Small (NEG) Urine Urobilinogen Dipstick 2.0 mg/dL (0.2 mg/dL) Urine Leukocyte Esterase Large (NEG) Urine RBC 0 /HPF (0-2) Urine WBC >40 /HPF (0-4) Urine Squamous Epithelial Cells Mod /LPF Urine Transitional Epithelial Cells Few /LPF Urine Renal Epithelial Cells Occ /LPF Urine Bacteria Many /HPF (0-FEW) Urine Hyaline Casts Many /HPF Urine Granular Casts Occasional /HPF Urine Mucus Slight /LPF Nasal Screen MRSA (PCR) Negative (Negative) Test 09/15/18 21:15 09/15/18 22:25 09/16/18 02:45 09/16/18 08:50 Troponin I Quantitative < 0.017 ng/mL (0.000-0.055) Prothrombin Time 14.1 SEC (11.7-14.0) Prothromb Time International Ratio 1.1 (0.8-1.1) Fibrinogen 242 mg/dL (200-440) Lactic Acid Level 3.3 mmol/L (0.4-2.0) 1.4 mmol/L (0.4-2.0) Total Bilirubin 2.1 mg/dL (0.2-1.0) 2.0 mg/dL (0.2-1.0) Direct Bilirubin 1.6 mg/dL (0.0-0.2) Aspartate Amino Transf (AST/SGOT) 94 U/L (15-37) 108 U/L (15-37) Alanine Aminotransferase (ALT/SGPT) 31 U/L (14-59) 30 U/L (14-59) Alkaline Phosphatase 119 U/L (46-116) 130 U/L (46-116) Total Protein 5.1 g/dL (6.4-8.2) 5.6 g/dL (6.4-8.2) Albumin 2.2 g/dL (3.4-5.0) 2.3 g/dL (3.4-5.0) Procalcitonin 0.52 ng/mL (0.00-0.10) White Blood Count 6.1 x10^3/uL (4.0-11.0) 4.2 x10^3/uL (4.0-11.0) Red Blood Count 3.73 x10^6/uL (3.50-5.40) 3.82 x10^6/uL (3.50-5.40) Hemoglobin 11.2 g/dL (12.0-15.5) 11.6 g/dL (12.0-15.5) Hematocrit 34.3 % (36.0-47.0) 35.4 % (36.0-47.0) Mean Corpuscular Volume 92 fL (79-100) 93 fL (79-100) Mean Corpuscular Hemoglobin 30 pg (25-35) 30 pg (25-35) Mean Corpuscular Hemoglobin Concent 33 g/dL (31-37) 33 g/dL (31-37) Red Cell Distribution Width 17.6 % (11.5-14.5) 18.0 % (11.5-14.5) Platelet Count 150 x10^3/uL (140-400) 141 x10^3/uL (140-400) Neutrophils (%) (Auto) 67 % (31-73) Lymphocytes (%) (Auto) 22 % (24-48) Monocytes (%) (Auto) 9 % (0-9) Eosinophils (%) (Auto) 2 % (0-3) Basophils (%) (Auto) 1 % (0-3) Neutrophils # (Auto) 4.1 x10^3uL (1.8-7.7) Lymphocytes # (Auto) 1.3 x10^3/uL (1.0-4.8) Monocytes # (Auto) 0.5 x10^3/uL (0.0-1.1) Eosinophils # (Auto) 0.1 x10^3/uL (0.0-0.7) Basophils # (Auto) 0.0 x10^3/uL (0.0-0.2) Sodium Level 137 mmol/L (136-145) 140 mmol/L (136-145) Potassium Level 2.7 mmol/L (3.5-5.1) 3.8 mmol/L (3.5-5.1) Chloride Level 97 mmol/L (98-107) 99 mmol/L (98-107) Carbon Dioxide Level 34 mmol/L (21-32) 32 mmol/L (21-32) Anion Gap 6 (6-14) 9 (6-14) Blood Urea Nitrogen 23 mg/dL (7-20) 21 mg/dL (7-20) Creatinine 1.1 mg/dL (0.6-1.0) 1.0 mg/dL (0.6-1.0) Estimated GFR (Cockcroft-Gault) 50.2 56.0 BUN/Creatinine Ratio 21 (6-20) Glucose Level 126 mg/dL (70-99) 84 mg/dL (70-99) Calcium Level 7.9 mg/dL (8.5-10.1) 8.1 mg/dL (8.5-10.1) Magnesium Level 1.7 mg/dL (1.8-2.4) 1.7 mg/dL (1.8-2.4) Albumin/Globulin Ratio 0.7 (1.0-1.7) Test 09/16/18 13:00 Urine Opiates Screen Pos (NEG) Urine Methadone Screen Neg (NEG) Urine Barbiturates Neg (NEG) Urine Phencyclidine Screen Neg (NEG) Urine Amphetamine/Methamphetamine Neg (NEG) Urine Benzodiazepines Screen Neg (NEG) Urine Cocaine Screen Neg (NEG) Urine Cannabinoids Screen Neg (NEG) Urine Ethyl Alcohol Neg (NEG) Review of Systems Review of Systems Pertinent as per history of present illness otherwise 14 point system is negative Assessment and Plan Assessmemt and Plan Problems Medical Problems: (1) Chest pain Status: Acute (2) Fall Status: Acute (3) Shortness of breath Status: Acute Comment Review of Relevant I have reviewed the following items balbir (where applicable) has been applied. Labs Laboratory Tests Test 09/15/18 15:40 09/15/18 16:31 09/15/18 18:33 09/15/18 19:30 White Blood Count 5.9 x10^3/uL (4.0-11.0) Red Blood Count 4.40 x10^6/uL (3.50-5.40) Hemoglobin 13.1 g/dL (12.0-15.5) Hematocrit 40.2 % (36.0-47.0) Mean Corpuscular Volume 91 fL (79-100) Mean Corpuscular Hemoglobin 30 pg (25-35) Mean Corpuscular Hemoglobin Concent 33 g/dL (31-37) Red Cell Distribution Width 17.6 % (11.5-14.5) Platelet Count 155 x10^3/uL (140-400) Neutrophils (%) (Auto) 73 % (31-73) Lymphocytes (%) (Auto) 18 % (24-48) Monocytes (%) (Auto) 8 % (0-9) Eosinophils (%) (Auto) 0 % (0-3) Basophils (%) (Auto) 1 % (0-3) Neutrophils # (Auto) 4.3 x10^3uL (1.8-7.7) Lymphocytes # (Auto) 1.1 x10^3/uL (1.0-4.8) Monocytes # (Auto) 0.5 x10^3/uL (0.0-1.1) Eosinophils # (Auto) 0.0 x10^3/uL (0.0-0.7) Basophils # (Auto) 0.0 x10^3/uL (0.0-0.2) Sodium Level 136 mmol/L (136-145) Potassium Level 3.2 mmol/L (3.5-5.1) Chloride Level 88 mmol/L (98-107) Carbon Dioxide Level > 45 mmol/L (21-32) Anion Gap 3 (6-14) Blood Urea Nitrogen 25 mg/dL (7-20) Creatinine 1.4 mg/dL (0.6-1.0) Estimated GFR (Cockcroft-Gault) 38.0 BUN/Creatinine Ratio 18 (6-20) Glucose Level 116 mg/dL (70-99) Calcium Level 9.7 mg/dL (8.5-10.1) Magnesium Level 1.4 mg/dL (1.8-2.4) Total Bilirubin 3.4 mg/dL (0.2-1.0) Aspartate Amino Transf (AST/SGOT) 123 U/L (15-37) Alanine Aminotransferase (ALT/SGPT) 39 U/L (14-59) Alkaline Phosphatase 157 U/L (46-116) Troponin I Quantitative 0.019 ng/mL (0.000-0.055) Total Protein 6.6 g/dL (6.4-8.2) Albumin 2.8 g/dL (3.4-5.0) Albumin/Globulin Ratio 0.7 (1.0-1.7) Ethyl Alcohol Level < 10 mg/dL (0-10) O2 Saturation 97 % (92-99) Arterial Blood pH 7.54 (7.35-7.45) Arterial Blood pCO2 at Patient Temp 49 mmHg (35-46) Arterial Blood pO2 at Patient Temp 88 mmHg (65-108) Arterial Blood HCO3 41 mmol/L (21-28) Arterial Blood Base Excess 16 mmol/L (-3-3) Oxyhemoglobin 95.9 % Methemoglobin 0.3 % (0.0-1.9) Carbon Monoxide, Quantitative 0.4 % (0.0-1.9) FiO2 28% nc Urine Collection Type Unknown Urine Color [place] Urine Clarity Cloudy Urine pH 6.5 Urine Specific [place] 1.015 Urine Protein Negative mg/dL (NEG-TRACE) Urine Glucose (UA) Negative mg/dL (NEG) Urine Ketones (Stick) Negative mg/dL (NEG) Urine Blood Negative (NEG) Urine Nitrite Negative (NEG) Urine Bilirubin Small (NEG) Urine Urobilinogen Dipstick 2.0 mg/dL (0.2 mg/dL) Urine Leukocyte Esterase Large (NEG) Urine RBC 0 /HPF (0-2) Urine WBC >40 /HPF (0-4) Urine Squamous Epithelial Cells Mod /LPF Urine Transitional Epithelial Cells Few /LPF Urine Renal Epithelial Cells Occ /LPF Urine Bacteria Many /HPF (0-FEW) Urine Hyaline Casts Many /HPF Urine Granular Casts Occasional /HPF Urine Mucus Slight /LPF Nasal Screen MRSA (PCR) Negative (Negative) Test 09/15/18 21:15 09/15/18 22:25 09/16/18 02:45 09/16/18 08:50 Troponin I Quantitative < 0.017 ng/mL (0.000-0.055) Prothrombin Time 14.1 SEC (11.7-14.0) Prothromb Time International Ratio 1.1 (0.8-1.1) Fibrinogen 242 mg/dL (200-440) Lactic Acid Level 3.3 mmol/L (0.4-2.0) 1.4 mmol/L (0.4-2.0) Total Bilirubin 2.1 mg/dL (0.2-1.0) 2.0 mg/dL (0.2-1.0) Direct Bilirubin 1.6 mg/dL (0.0-0.2) Aspartate Amino Transf (AST/SGOT) 94 U/L (15-37) 108 U/L (15-37) Alanine Aminotransferase (ALT/SGPT) 31 U/L (14-59) 30 U/L (14-59) Alkaline Phosphatase 119 U/L (46-116) 130 U/L (46-116) Total Protein 5.1 g/dL (6.4-8.2) 5.6 g/dL (6.4-8.2) Albumin 2.2 g/dL (3.4-5.0) 2.3 g/dL (3.4-5.0) Procalcitonin 0.52 ng/mL (0.00-0.10) White Blood Count 6.1 x10^3/uL (4.0-11.0) 4.2 x10^3/uL (4.0-11.0) Red Blood Count 3.73 x10^6/uL (3.50-5.40) 3.82 x10^6/uL (3.50-5.40) Hemoglobin 11.2 g/dL (12.0-15.5) 11.6 g/dL (12.0-15.5) Hematocrit 34.3 % (36.0-47.0) 35.4 % (36.0-47.0) Mean Corpuscular Volume 92 fL (79-100) 93 fL (79-100) Mean Corpuscular Hemoglobin 30 pg (25-35) 30 pg (25-35) Mean Corpuscular Hemoglobin Concent 33 g/dL (31-37) 33 g/dL (31-37) Red Cell Distribution Width 17.6 % (11.5-14.5) 18.0 % (11.5-14.5) Platelet Count 150 x10^3/uL (140-400) 141 x10^3/uL (140-400) Neutrophils (%) (Auto) 67 % (31-73) Lymphocytes (%) (Auto) 22 % (24-48) Monocytes (%) (Auto) 9 % (0-9) Eosinophils (%) (Auto) 2 % (0-3) Basophils (%) (Auto) 1 % (0-3) Neutrophils # (Auto) 4.1 x10^3uL (1.8-7.7) Lymphocytes # (Auto) 1.3 x10^3/uL (1.0-4.8) Monocytes # (Auto) 0.5 x10^3/uL (0.0-1.1) Eosinophils # (Auto) 0.1 x10^3/uL (0.0-0.7) Basophils # (Auto) 0.0 x10^3/uL (0.0-0.2) Sodium Level 137 mmol/L (136-145) 140 mmol/L (136-145) Potassium Level 2.7 mmol/L (3.5-5.1) 3.8 mmol/L (3.5-5.1) Chloride Level 97 mmol/L (98-107) 99 mmol/L (98-107) Carbon Dioxide Level 34 mmol/L (21-32) 32 mmol/L (21-32) Anion Gap 6 (6-14) 9 (6-14) Blood Urea Nitrogen 23 mg/dL (7-20) 21 mg/dL (7-20) Creatinine 1.1 mg/dL (0.6-1.0) 1.0 mg/dL (0.6-1.0) Estimated GFR (Cockcroft-Gault) 50.2 56.0 BUN/Creatinine Ratio 21 (6-20) Glucose Level 126 mg/dL (70-99) 84 mg/dL (70-99) Calcium Level 7.9 mg/dL (8.5-10.1) 8.1 mg/dL (8.5-10.1) Magnesium Level 1.7 mg/dL (1.8-2.4) 1.7 mg/dL (1.8-2.4) Albumin/Globulin Ratio 0.7 (1.0-1.7) Test 09/16/18 13:00 Urine Opiates Screen Pos (NEG) Urine Methadone Screen Neg (NEG) Urine Barbiturates Neg (NEG) Urine Phencyclidine Screen Neg (NEG) Urine Amphetamine/Methamphetamine Neg (NEG) Urine Benzodiazepines Screen Neg (NEG) Urine Cocaine Screen Neg (NEG) Urine Cannabinoids Screen Neg (NEG) Urine Ethyl Alcohol Neg (NEG) Laboratory Tests Test 09/15/18 15:40 09/15/18 16:31 09/15/18 18:33 09/15/18 19:30 White Blood Count 5.9 x10^3/uL (4.0-11.0) Red Blood Count 4.40 x10^6/uL (3.50-5.40) Hemoglobin 13.1 g/dL (12.0-15.5) Hematocrit 40.2 % (36.0-47.0) Mean Corpuscular Volume 91 fL (79-100) Mean Corpuscular Hemoglobin 30 pg (25-35) Mean Corpuscular Hemoglobin Concent 33 g/dL (31-37) Red Cell Distribution Width 17.6 % (11.5-14.5) Platelet Count 155 x10^3/uL (140-400) Neutrophils (%) (Auto) 73 % (31-73) Lymphocytes (%) (Auto) 18 % (24-48) Monocytes (%) (Auto) 8 % (0-9) Eosinophils (%) (Auto) 0 % (0-3) Basophils (%) (Auto) 1 % (0-3) Neutrophils # (Auto) 4.3 x10^3uL (1.8-7.7) Lymphocytes # (Auto) 1.1 x10^3/uL (1.0-4.8) Monocytes # (Auto) 0.5 x10^3/uL (0.0-1.1) Eosinophils # (Auto) 0.0 x10^3/uL (0.0-0.7) Basophils # (Auto) 0.0 x10^3/uL (0.0-0.2) Sodium Level 136 mmol/L (136-145) Potassium Level 3.2 mmol/L (3.5-5.1) Chloride Level 88 mmol/L (98-107) Carbon Dioxide Level > 45 mmol/L (21-32) Anion Gap 3 (6-14) Blood Urea Nitrogen 25 mg/dL (7-20) Creatinine 1.4 mg/dL (0.6-1.0) Estimated GFR (Cockcroft-Gault) 38.0 BUN/Creatinine Ratio 18 (6-20) Glucose Level 116 mg/dL (70-99) Calcium Level 9.7 mg/dL (8.5-10.1) Magnesium Level 1.4 mg/dL (1.8-2.4) Total Bilirubin 3.4 mg/dL (0.2-1.0) Aspartate Amino Transf (AST/SGOT) 123 U/L (15-37) Alanine Aminotransferase (ALT/SGPT) 39 U/L (14-59) Alkaline Phosphatase 157 U/L (46-116) Troponin I Quantitative 0.019 ng/mL (0.000-0.055) Total Protein 6.6 g/dL (6.4-8.2) Albumin 2.8 g/dL (3.4-5.0) Albumin/Globulin Ratio 0.7 (1.0-1.7) Ethyl Alcohol Level < 10 mg/dL (0-10) O2 Saturation 97 % (92-99) Arterial Blood pH 7.54 (7.35-7.45) Arterial Blood pCO2 at Patient Temp 49 mmHg (35-46) Arterial Blood pO2 at Patient Temp 88 mmHg (65-108) Arterial Blood HCO3 41 mmol/L (21-28) Arterial Blood Base Excess 16 mmol/L (-3-3) Oxyhemoglobin 95.9 % Methemoglobin 0.3 % (0.0-1.9) Carbon Monoxide, Quantitative 0.4 % (0.0-1.9) FiO2 28% nc Urine Collection Type Unknown Urine Color [place] Urine Clarity Cloudy Urine pH 6.5 Urine Specific [place] 1.015 Urine Protein Negative mg/dL (NEG-TRACE) Urine Glucose (UA) Negative mg/dL (NEG) Urine Ketones (Stick) Negative mg/dL (NEG) Urine Blood Negative (NEG) Urine Nitrite Negative (NEG) Urine Bilirubin Small (NEG) Urine Urobilinogen Dipstick 2.0 mg/dL (0.2 mg/dL) Urine Leukocyte Esterase Large (NEG) Urine RBC 0 /HPF (0-2) Urine WBC >40 /HPF (0-4) Urine Squamous Epithelial Cells Mod /LPF Urine Transitional Epithelial Cells Few /LPF Urine Renal Epithelial Cells Occ /LPF Urine Bacteria Many /HPF (0-FEW) Urine Hyaline Casts Many /HPF Urine Granular Casts Occasional /HPF Urine Mucus Slight /LPF Nasal Screen MRSA (PCR) Negative (Negative) Test 09/15/18 21:15 09/15/18 22:25 09/16/18 02:45 09/16/18 08:50 Troponin I Quantitative < 0.017 ng/mL (0.000-0.055) Prothrombin Time 14.1 SEC (11.7-14.0) Prothromb Time International Ratio 1.1 (0.8-1.1) Fibrinogen 242 mg/dL (200-440) Lactic Acid Level 3.3 mmol/L (0.4-2.0) 1.4 mmol/L (0.4-2.0) Total Bilirubin 2.1 mg/dL (0.2-1.0) 2.0 mg/dL (0.2-1.0) Direct Bilirubin 1.6 mg/dL (0.0-0.2) Aspartate Amino Transf (AST/SGOT) 94 U/L (15-37) 108 U/L (15-37) Alanine Aminotransferase (ALT/SGPT) 31 U/L (14-59) 30 U/L (14-59) Alkaline Phosphatase 119 U/L (46-116) 130 U/L (46-116) Total Protein 5.1 g/dL (6.4-8.2) 5.6 g/dL (6.4-8.2) Albumin 2.2 g/dL (3.4-5.0) 2.3 g/dL (3.4-5.0) Procalcitonin 0.52 ng/mL (0.00-0.10) White Blood Count 6.1 x10^3/uL (4.0-11.0) 4.2 x10^3/uL (4.0-11.0) Red Blood Count 3.73 x10^6/uL (3.50-5.40) 3.82 x10^6/uL (3.50-5.40) Hemoglobin 11.2 g/dL (12.0-15.5) 11.6 g/dL (12.0-15.5) Hematocrit 34.3 % (36.0-47.0) 35.4 % (36.0-47.0) Mean Corpuscular Volume 92 fL (79-100) 93 fL (79-100) Mean Corpuscular Hemoglobin 30 pg (25-35) 30 pg (25-35) Mean Corpuscular Hemoglobin Concent 33 g/dL (31-37) 33 g/dL (31-37) Red Cell Distribution Width 17.6 % (11.5-14.5) 18.0 % (11.5-14.5) Platelet Count 150 x10^3/uL (140-400) 141 x10^3/uL (140-400) Neutrophils (%) (Auto) 67 % (31-73) Lymphocytes (%) (Auto) 22 % (24-48) Monocytes (%) (Auto) 9 % (0-9) Eosinophils (%) (Auto) 2 % (0-3) Basophils (%) (Auto) 1 % (0-3) Neutrophils # (Auto) 4.1 x10^3uL (1.8-7.7) Lymphocytes # (Auto) 1.3 x10^3/uL (1.0-4.8) Monocytes # (Auto) 0.5 x10^3/uL (0.0-1.1) Eosinophils # (Auto) 0.1 x10^3/uL (0.0-0.7) Basophils # (Auto) 0.0 x10^3/uL (0.0-0.2) Sodium Level 137 mmol/L (136-145) 140 mmol/L (136-145) Potassium Level 2.7 mmol/L (3.5-5.1) 3.8 mmol/L (3.5-5.1) Chloride Level 97 mmol/L (98-107) 99 mmol/L (98-107) Carbon Dioxide Level 34 mmol/L (21-32) 32 mmol/L (21-32) Anion Gap 6 (6-14) 9 (6-14) Blood Urea Nitrogen 23 mg/dL (7-20) 21 mg/dL (7-20) Creatinine 1.1 mg/dL (0.6-1.0) 1.0 mg/dL (0.6-1.0) Estimated GFR (Cockcroft-Gault) 50.2 56.0 BUN/Creatinine Ratio 21 (6-20) Glucose Level 126 mg/dL (70-99) 84 mg/dL (70-99) Calcium Level 7.9 mg/dL (8.5-10.1) 8.1 mg/dL (8.5-10.1) Magnesium Level 1.7 mg/dL (1.8-2.4) 1.7 mg/dL (1.8-2.4) Albumin/Globulin Ratio 0.7 (1.0-1.7) Test 09/16/18 13:00 Urine Opiates Screen Pos (NEG) Urine Methadone Screen Neg (NEG) Urine Barbiturates Neg (NEG) Urine Phencyclidine Screen Neg (NEG) Urine Amphetamine/Methamphetamine Neg (NEG) Urine Benzodiazepines Screen Neg (NEG) Urine Cocaine Screen Neg (NEG) Urine Cannabinoids Screen Neg (NEG) Urine Ethyl Alcohol Neg (NEG) Medications Current Medications Sodium Chloride 1,000 ml @ 1,000 mls/hr 1X ONCE IV Last administered on at 15:35; Start 09/15/18 at 15:30; Stop 09/15/18 at 16:29; Status DC Sodium Chloride 1,000 ml @ 1,000 mls/hr 1X ONCE IV Last administered on at 17:09; Start 09/15/18 at 17:00; Stop 09/15/18 at 17:59; Status DC Magnesium Oxide (Magnesium Oxide) 400 mg DAILY PO Last administered on at 10:05; Start 09/15/18 at 18:15 Potassium Chloride (Klor-Con) 40 meq 1X ONCE PO Last administered on at 18:50; Start 09/15/18 at 18:15; Stop 09/15/18 at 18:16; Status DC Ondansetron HCl (Zofran) 4 mg PRN Q8HRS PRN IV NAUSEA/VOMITING; Start 09/15/18 at 18:15; Stop 09/16/18 at 18:14 Acetaminophen (Tylenol) 650 mg PRN Q4HRS PRN PO FEVER; Start 09/15/18 at 18:15 ; Stop 09/16/18 at 18:14 Sodium Chloride 1,000 ml @ 1,000 mls/hr 1X ONCE IV Last administered on at 18:51; Start 09/15/18 at 18:45; Stop 09/15/18 at 19:44; Status DC Sodium Chloride 1,000 ml @ 150 mls/hr 1X ONCE IV Last administered on at 22:35; Start 09/15/18 at 18:45; Stop 09/16/18 at 01:24; Status DC Multivitamins 10 ml/Thiamine HCl 100 mg/Folic Acid 1 mg/Sodium Chloride 1,011.2 ml @ 100 mls/ hr DAILY IV Last administered on 09/16/18at 10:05; Start at 09:00; Stop 09/20/18 at 19:07 Multivitamins (Thera M Plus) 1 tab DAILY PO Last administered on 09/16/18at 10: 05; Start 09/16/18 at 09:00; Stop 09/16/18 at 14:51; Status DC Folic Acid (Folic Acid) 1 mg DAILY PO Last administered on 09/16/18at 10:05; Start 09/16/18 at 09:00; Stop 09/16/18 at 14:53; Status DC Thiamine HCl 100 mg/Dextrose 51 ml @ 100 mls/hr DAILY IV ; Start 09/16/18 at 09 :00; Stop 09/20/18 at 09:31; Status Cancel Lorazepam (Ativan) 4 mg PRN Q1HR PRN PO For CIWA 8-14; Start 09/15/18 at 21:45 Lorazepam (Ativan) 8 mg PRN Q1HR PRN PO For CIWA 15 or greater; Start 09/15/18 at 21:45 Lorazepam (Ativan) 2 mg PRN Q1HR PRN IV For CIWA 8-14; Start 09/15/18 at 21:45 Lorazepam (Ativan) 4 mg PRN Q1HR PRN IV For CIWA 15 or greater; Start 09/15/18 at 21:45 Haloperidol Lactate (Haldol Inj) 5 mg PRN Q4HRS PRN IVP Hallucinatns,Confusn, Delirium; Start 09/15/18 at 21:45 Diphenhydramine HCl (Benadryl) 25 mg PRN Q15MIN PRN IVP EPS symptoms 2'Haldol admin; Start 09/15/18 at 21:45 Clonidine HCl (Catapres) 0.1 mg PRN Q1HR PRN PO SBP > 180 or DBP > 100, MRX3; Start 09/15/18 at 21:45 Lorazepam (Ativan) 2 mg PRN Q15MIN PRN IV ANXIETY / AGITATION; Start 09/15/18 at 21:45 Lorazepam (Ativan) 4 mg PRN Q15MIN PRN IV ANXIETY / AGITATION; Start 09/15/18 at 21:45 Ceftriaxone Sodium (Rocephin) 2 gm Q24H IVP Last administered on 09/15/18at 22: 27; Start 09/15/18 at 22:00 Potassium Chloride (Klor-Con) 40 meq 1X ONCE PO ; Start 09/15/18 at 22:00; Stop 09/16/18 at 04:14; Status DC Potassium Chloride (Klor-Con) 20 meq [id number] PO Last administered on at 10:05; Start 09/16/18 at 08:00 Sodium Chloride 1,500 ml @ 1,500 mls/hr Q1H IV ; Start 09/15/18 at 21:44; Stop 09/15/18 at 22:44; Status DC Sodium Chloride 500 ml @ 1,000 mls/hr PRN Q30MIN PRN IV SEE COMMENTS; Start at 21:45 Norepinephrine Bitartrate 250 ml @ 0 mls/hr CONT PRN IV SEE I/O RECORD Last administered on 09/16/18at 06:44; Start 09/15/18 at 21:45 Dobutamine HCl/ Dextrose 250 ml @ 0 mls/hr CONT PRN IV SEE I/O RECORD; Start at 21:45 Magnesium Sulfate/ Dextrose 100 ml @ 100 mls/hr 1X ONCE IV Last administered on 09/15/18at 22:22; Start 09/15/18 at 22:00; Stop 09/15/18 at 22:59; Status DC Potassium Chloride (Klor-Con) 70 meq 1X ONCE PO Last administered on at 04:36; Start 09/16/18 at 04:30; Stop 09/16/18 at 04:31; Status DC Vancomycin HCl (Vanco Per Pharmacy) 1 each PRN DAILY PRN MC SEE COMMENTS; Start 09/16/18 at 07:15; Stop 09/16/18 at 08:27; Status DC Vancomycin HCl 1.5 gm/Sodium Chloride 500 ml @ 250 mls/hr 1X ONCE IV ; Start 09/16/18 at 08:00; Stop 09/16/18 at 09:59; Status Cancel Lactobacillus Rhamnosus (Culturelle) 1 cap BID PO Last administered on at 10:09; Start 09/16/18 at 09:00 Lorazepam (Ativan) 1 mg PRN Q6HRS PRN PO ANXIETY / AGITATION; Start 09/16/18 at 08:30 Magnesium Sulfate 50 ml @ 25 mls/hr 1X ONCE IV Last administered on 09/16/18at 15:16; Start 09/16/18 at 10:15; Stop 09/16/18 at 12:14; Status DC Multivitamins (Thera M Plus) 1 tab DAILY PO ; Start 09/21/18 at 09:00 Folic Acid (Folic Acid) 1 mg DAILY PO ; Start 09/21/18 at 09:00 Active Scripts Active Reported Protonix (Pantoprazole Sodium) 20 Mg Tablet.dr 2 Tab PO DAILY Mirtazapine 30 Mg Tablet 1 Tab PO QHS Furosemide 40 Mg Tablet 1 Tab PO DAILY Duloxetine Hcl 60 Mg Capsule.dr 60 Mg PO DAILY Carvedilol 25 Mg Tablet 25 Mg PO BIDWMEALS Amlodipine Besylate 5 Mg Tablet 5 Mg PO DAILY Vitals/I & O Vital Sign - Last 24 Hours 09/15/18 09/15/18 09/15/18 09/15/18 15:30 15:45 16:30 17:00 Pulse 90 80 84 86 Resp 18 16 15 16 B/P (MAP) 68/43 (51) 96/64 (75) 97/62 (74) 82/55 (64) Pulse Ox 94 100 100 99 O2 Delivery Room Air Room Air Room Air Room Air 09/15/18 09/15/18 09/15/18 09/15/18 17:30 18:06 18:23 18:36 Pulse 90 86 85 86 Resp 18 18 16 16 B/P (MAP) 85/56 (66) 83/61 (68) 80/49 (59) 90/59 (69) Pulse Ox 97 100 100 100 O2 Delivery Room Air 09/15/18 09/15/18 09/15/18 09/15/18 19:20 19:30 19:45 20:00 Temp 97.8 97.8 Pulse 90 92 88 Resp 20 24 24 B/P (MAP) 108/64 (79) 110/62 (78) 104/54 (71) 86/61 (69) Pulse Ox 97 99 99 O2 Delivery Nasal Cannula Nasal Cannula Nasal Cannula O2 Flow Rate 2.0 2.0 2.0 09/15/18 09/15/18 09/15/18 09/15/18 20:15 20:30 21:00 22:00 Pulse 87 92 94 90 Resp 24 24 B/P (MAP) 87/57 (67) 75/58 (64) 68/47 (54) 76/45 (55) Pulse Ox 99 99 99 99 O2 Delivery Nasal Cannula Nasal Cannula Nasal Cannula Nasal Cannula O2 Flow Rate 2.0 2.0 2.0 2.0 09/15/18 09/15/18 09/15/18 09/16/18 22:59 23:00 23:59 01:00 Temp 97.7 97.7 Pulse 80 83 Resp 40 40 B/P (MAP) 90/55 (67) 113/71 (85) Pulse Ox 100 98 O2 Delivery Nasal Cannula Nasal Cannula Nasal Cannula Nasal Cannula O2 Flow Rate 2.0 2.0 2.0 2.0 09/16/18 09/16/18 09/16/18 09/16/18 02:00 03:00 04:00 04:00 Temp 99.2 99.2 Pulse 82 86 83 Resp 30 18 B/P (MAP) 117/79 (92) 120/73 (89) 110/67 (81) Pulse Ox 100 96 98 O2 Delivery Nasal Cannula Nasal Cannula Nasal Cannula Nasal Cannula O2 Flow Rate 2.0 2.0 2.0 2.0 09/16/18 09/16/18 09/16/18 09/16/18 05:01 06:00 07:00 08:00 Temp 98.3 98.3 Pulse 84 87 78 97 Resp 20 22 18 B/P (MAP) 126/78 (94) 98/62 (74) 100/70 (80) Pulse Ox 90 91 95 94 O2 Delivery Room Air Room Air Room Air Room Air 09/16/18 09/16/18 09/16/18 09/16/18 08:00 09:00 10:00 11:00 Pulse 88 98 90 Resp 20 18 20 B/P (MAP) 112/70 (84) 104/65 (78) 79/64 (69) Pulse Ox 94 96 95 O2 Delivery Room Air Room Air Room Air Room Air 09/16/18 09/16/18 09/16/18 12:00 13:00 14:00 Temp 98.4 98.4 98.4 98.4 Pulse 74 74 95 Resp 18 18 16 B/P (MAP) 86/58 (67) 102/59 (73) 90/57 (68) Pulse Ox 96 96 95 O2 Delivery Room Air Room Air Room Air Intake and Output 09/15/18 09/15/18 09/16/18 15:00 23:00 07:00 Intake Total 3100 ml 2250 ml Balance 3100 ml 2250 ml KEL IVORY MD Sep 16, 2018 15:30
--- NOTE | 2018-09-16 15:37 | PDOC ---
SUBJECTIVE Subjective falls/ dizziness intrathecal pump "beeping" OBJECTIVE Objective 63 yo female c/o beeping alarm in intrathecal pump No change in pain levels, no withdrawl symptoms Vital Signs Vital Signs Date Time Temp Pulse Resp B/P (MAP) Pulse Ox O2 Delivery O2 Flow Rate FiO2 09/16/18 14:00 95 16 90/57 (68) 95 Room Air 09/16/18 13:00 98.4 74 18 102/59 (73) 96 Room Air 98.4 09/16/18 12:00 98.4 74 18 86/58 (67) 96 Room Air 98.4 09/16/18 11:00 90 20 79/64 (69) 95 Room Air 09/16/18 10:00 98 18 104/65 (78) 96 Room Air 09/16/18 09:00 88 20 112/70 (84) 94 Room Air 09/16/18 08:00 Room Air 09/16/18 08:00 98.3 97 18 94 Room Air 98.3 09/16/18 07:00 78 22 100/70 (80) 95 Room Air 09/16/18 06:00 87 31 98/62 (74) 91 Room Air 09/16/18 05:01 84 20 126/78 (94) 90 Room Air 09/16/18 04:00 Nasal Cannula 2.0 09/16/18 04:00 99.2 83 18 110/67 (81) 98 Nasal Cannula 2.0 99.2 09/16/18 03:00 86 30 120/73 (89) 96 Nasal Cannula 2.0 09/16/18 02:00 82 20 117/79 (92) 100 Nasal Cannula 2.0 09/16/18 01:00 97.7 83 40 113/71 (85) 98 Nasal Cannula 2.0 97.7 09/15/18 23:59 Nasal Cannula 2.0 09/15/18 23:00 80 40 90/55 (67) 100 Nasal Cannula 2.0 09/15/18 22:59 Nasal Cannula 2.0 09/15/18 22:00 90 24 76/45 (55) 99 Nasal Cannula 2.0 09/15/18 21:00 94 24 68/47 (54) 99 Nasal Cannula 2.0 09/15/18 20:30 92 24 75/58 (64) 99 Nasal Cannula 2.0 09/15/18 20:15 87 24 87/57 (67) 99 Nasal Cannula 2.0 09/15/18 20:00 88 24 86/61 (69) 99 Nasal Cannula 2.0 09/15/18 19:45 92 24 104/54 (71) 99 Nasal Cannula 2.0 09/15/18 19:30 97.8 90 20 110/62 (78) 97 Nasal Cannula 2.0 97.8 09/15/18 19:20 108/64 (79) 09/15/18 18:36 86 16 90/59 (69) 100 09/15/18 18:23 85 16 80/49 (59) 100 09/15/18 18:06 86 18 83/61 (68) 100 09/15/18 17:30 90 18 85/56 (66) 97 Room Air 09/15/18 17:00 86 16 82/55 (64) 99 Room Air 09/15/18 16:30 84 15 97/62 (74) 100 Room Air 09/15/18 15:45 80 16 96/64 (75) 100 Room Air I & O Intake and Output 09/16/18 07:00 Intake Total 5350 ml Balance 5350 ml Intake Oral 250 ml IV Total 5100 ml PHYSICAL EXAM Physical Exam A&O X3 sitting up in chair, pleasant NCAT, PERRL BS+bilat S1,S2 clear Abd- soft, nt,nd; ITPump rt lower quad- nontender Exts -4/5 equal bilat ASSESSMENT/PLAN Assessment/Plan Plan: IT Pump interrogated- no alarms triggered, no low volume alerts detected Simple continuous infusion mode: Mso4 3.8mg/day Fentanyl 190mcg/day Low reservoir alarm-2ml Refill date 09/29/2018 COMMENT Lab Laboratory Tests Test 09/15/18 15:40 09/15/18 16:31 09/15/18 18:33 09/15/18 19:30 White Blood Count 5.9 x10^3/uL (4.0-11.0) Red Blood Count 4.40 x10^6/uL (3.50-5.40) Hemoglobin 13.1 g/dL (12.0-15.5) Hematocrit 40.2 % (36.0-47.0) Mean Corpuscular Volume 91 fL (79-100) Mean Corpuscular Hemoglobin 30 pg (25-35) Mean Corpuscular Hemoglobin Concent 33 g/dL (31-37) Red Cell Distribution Width 17.6 % (11.5-14.5) Platelet Count 155 x10^3/uL (140-400) Neutrophils (%) (Auto) 73 % (31-73) Lymphocytes (%) (Auto) 18 % (24-48) Monocytes (%) (Auto) 8 % (0-9) Eosinophils (%) (Auto) 0 % (0-3) Basophils (%) (Auto) 1 % (0-3) Neutrophils # (Auto) 4.3 x10^3uL (1.8-7.7) Lymphocytes # (Auto) 1.1 x10^3/uL (1.0-4.8) Monocytes # (Auto) 0.5 x10^3/uL (0.0-1.1) Eosinophils # (Auto) 0.0 x10^3/uL (0.0-0.7) Basophils # (Auto) 0.0 x10^3/uL (0.0-0.2) Sodium Level 136 mmol/L (136-145) Potassium Level 3.2 mmol/L (3.5-5.1) Chloride Level 88 mmol/L (98-107) Carbon Dioxide Level > 45 mmol/L (21-32) Anion Gap 3 (6-14) Blood Urea Nitrogen 25 mg/dL (7-20) Creatinine 1.4 mg/dL (0.6-1.0) Estimated GFR (Cockcroft-Gault) 38.0 BUN/Creatinine Ratio 18 (6-20) Glucose Level 116 mg/dL (70-99) Calcium Level 9.7 mg/dL (8.5-10.1) Magnesium Level 1.4 mg/dL (1.8-2.4) Total Bilirubin 3.4 mg/dL (0.2-1.0) Aspartate Amino Transf (AST/SGOT) 123 U/L (15-37) Alanine Aminotransferase (ALT/SGPT) 39 U/L (14-59) Alkaline Phosphatase 157 U/L (46-116) Troponin I Quantitative 0.019 ng/mL (0.000-0.055) Total Protein 6.6 g/dL (6.4-8.2) Albumin 2.8 g/dL (3.4-5.0) Albumin/Globulin Ratio 0.7 (1.0-1.7) Ethyl Alcohol Level < 10 mg/dL (0-10) O2 Saturation 97 % (92-99) Arterial Blood pH 7.54 (7.35-7.45) Arterial Blood pCO2 at Patient Temp 49 mmHg (35-46) Arterial Blood pO2 at Patient Temp 88 mmHg (65-108) Arterial Blood HCO3 41 mmol/L (21-28) Arterial Blood Base Excess 16 mmol/L (-3-3) Oxyhemoglobin 95.9 % Methemoglobin 0.3 % (0.0-1.9) Carbon Monoxide, Quantitative 0.4 % (0.0-1.9) FiO2 28% nc Urine Collection Type Unknown Urine Color [place] Urine Clarity Cloudy Urine pH 6.5 Urine Specific [place] 1.015 Urine Protein Negative mg/dL (NEG-TRACE) Urine Glucose (UA) Negative mg/dL (NEG) Urine Ketones (Stick) Negative mg/dL (NEG) Urine Blood Negative (NEG) Urine Nitrite Negative (NEG) Urine Bilirubin Small (NEG) Urine Urobilinogen Dipstick 2.0 mg/dL (0.2 mg/dL) Urine Leukocyte Esterase Large (NEG) Urine RBC 0 /HPF (0-2) Urine WBC >40 /HPF (0-4) Urine Squamous Epithelial Cells Mod /LPF Urine Transitional Epithelial Cells Few /LPF Urine Renal Epithelial Cells Occ /LPF Urine Bacteria Many /HPF (0-FEW) Urine Hyaline Casts Many /HPF Urine Granular Casts Occasional /HPF Urine Mucus Slight /LPF Nasal Screen MRSA (PCR) Negative (Negative) Test 09/15/18 21:15 09/15/18 22:25 09/16/18 02:45 09/16/18 08:50 Troponin I Quantitative < 0.017 ng/mL (0.000-0.055) Prothrombin Time 14.1 SEC (11.7-14.0) Prothromb Time International Ratio 1.1 (0.8-1.1) Fibrinogen 242 mg/dL (200-440) Lactic Acid Level 3.3 mmol/L (0.4-2.0) 1.4 mmol/L (0.4-2.0) Total Bilirubin 2.1 mg/dL (0.2-1.0) 2.0 mg/dL (0.2-1.0) Direct Bilirubin 1.6 mg/dL (0.0-0.2) Aspartate Amino Transf (AST/SGOT) 94 U/L (15-37) 108 U/L (15-37) Alanine Aminotransferase (ALT/SGPT) 31 U/L (14-59) 30 U/L (14-59) Alkaline Phosphatase 119 U/L (46-116) 130 U/L (46-116) Total Protein 5.1 g/dL (6.4-8.2) 5.6 g/dL (6.4-8.2) Albumin 2.2 g/dL (3.4-5.0) 2.3 g/dL (3.4-5.0) Procalcitonin 0.52 ng/mL (0.00-0.10) White Blood Count 6.1 x10^3/uL (4.0-11.0) 4.2 x10^3/uL (4.0-11.0) Red Blood Count 3.73 x10^6/uL (3.50-5.40) 3.82 x10^6/uL (3.50-5.40) Hemoglobin 11.2 g/dL (12.0-15.5) 11.6 g/dL (12.0-15.5) Hematocrit 34.3 % (36.0-47.0) 35.4 % (36.0-47.0) Mean Corpuscular Volume 92 fL (79-100) 93 fL (79-100) Mean Corpuscular Hemoglobin 30 pg (25-35) 30 pg (25-35) Mean Corpuscular Hemoglobin Concent 33 g/dL (31-37) 33 g/dL (31-37) Red Cell Distribution Width 17.6 % (11.5-14.5) 18.0 % (11.5-14.5) Platelet Count 150 x10^3/uL (140-400) 141 x10^3/uL (140-400) Neutrophils (%) (Auto) 67 % (31-73) Lymphocytes (%) (Auto) 22 % (24-48) Monocytes (%) (Auto) 9 % (0-9) Eosinophils (%) (Auto) 2 % (0-3) Basophils (%) (Auto) 1 % (0-3) Neutrophils # (Auto) 4.1 x10^3uL (1.8-7.7) Lymphocytes # (Auto) 1.3 x10^3/uL (1.0-4.8) Monocytes # (Auto) 0.5 x10^3/uL (0.0-1.1) Eosinophils # (Auto) 0.1 x10^3/uL (0.0-0.7) Basophils # (Auto) 0.0 x10^3/uL (0.0-0.2) Sodium Level 137 mmol/L (136-145) 140 mmol/L (136-145) Potassium Level 2.7 mmol/L (3.5-5.1) 3.8 mmol/L (3.5-5.1) Chloride Level 97 mmol/L (98-107) 99 mmol/L (98-107) Carbon Dioxide Level 34 mmol/L (21-32) 32 mmol/L (21-32) Anion Gap 6 (6-14) 9 (6-14) Blood Urea Nitrogen 23 mg/dL (7-20) 21 mg/dL (7-20) Creatinine 1.1 mg/dL (0.6-1.0) 1.0 mg/dL (0.6-1.0) Estimated GFR (Cockcroft-Gault) 50.2 56.0 BUN/Creatinine Ratio 21 (6-20) Glucose Level 126 mg/dL (70-99) 84 mg/dL (70-99) Calcium Level 7.9 mg/dL (8.5-10.1) 8.1 mg/dL (8.5-10.1) Magnesium Level 1.7 mg/dL (1.8-2.4) 1.7 mg/dL (1.8-2.4) Albumin/Globulin Ratio 0.7 (1.0-1.7) Test 09/16/18 13:00 Urine Opiates Screen Pos (NEG) Urine Methadone Screen Neg (NEG) Urine Barbiturates Neg (NEG) Urine Phencyclidine Screen Neg (NEG) Urine Amphetamine/Methamphetamine Neg (NEG) Urine Benzodiazepines Screen Neg (NEG) Urine Cocaine Screen Neg (NEG) Urine Cannabinoids Screen Neg (NEG) Urine Ethyl Alcohol Neg (NEG) JACKSON MCKNIGHT MD Sep 16, 2018 15:37
[2018-09-16] MEDS: cefTRIAXone IV Push 2 GM VIAL. IVP SCH (22:58)
[2018-09-17] VITALS (18 sets, daily range): BP systolic 89–135; BP diastolic 46–108
[2018-09-17] MEDS: LACTOBACILLUS RHAMNOSUS GG 1 CAPSULE. PO SCH ×2 (09:12→21:19)
[2018-09-17] MEDS: POTASSIUM CHLORIDE 20 MEQ TABLET.ER. PO SCH (09:12)
[2018-09-17] MEDS: MAGNESIUM OXIDE 400 MG TABLET PO SCH (09:13)
[2018-09-17] MEDS: MULTIVIT INFUSN,ADULT 4,VIT K 10 ML, THIAMINE INJ 100 MG, FOLIC ACID INJ 1 MG in IV NOR... IV SCH (09:13)
[2018-09-17] MEDS ORDERED: INFLUENZA VAX SCREEN BY RX. MC PRN (09:15)
--- NOTE | 2018-09-17 09:29 | PDOC ---
KAYLYNN WILCOX HAND OR MACHINE PASTER 09/17/18 0929: CARDIO Progress Notes Date and Time Date of Service 09/17/2018 Time of Evaluation 0910 Subjective Subjective: No Chest Pain, No shortness of breath, No Palpitations Vitals Vitals Vital Signs Date Time Temp Pulse Resp B/P (MAP) Pulse Ox O2 Delivery O2 Flow Rate FiO2 09/17/18 06:00 87 20 114/71 (85) 98 Room Air 09/17/18 04:00 98.5 98.5 09/16/18 12:00 2.0 Weight Weight [ ] Input and Output Intake and Output Intake and Output 09/17/18 07:00 Intake Total 1521 ml Output Total 600 ml Balance 921 ml Intake Oral 890 ml IV Total 631 ml Output Urine Total 600 ml Laboratory Labs Laboratory Tests Test 09/16/18 13:00 Urine Opiates Screen Pos (NEG) Urine Methadone Screen Neg (NEG) Urine Barbiturates Neg (NEG) Urine Phencyclidine Screen Neg (NEG) Urine Amphetamine/Methamphetamine Neg (NEG) Urine Benzodiazepines Screen Neg (NEG) Urine Cocaine Screen Neg (NEG) Urine Cannabinoids Screen Neg (NEG) Urine Ethyl Alcohol Neg (NEG) Microbiology Micro Microbiology 09/15/18 Blood Culture - Preliminary, Resulted NO GROWTH AFTER 1 DAY Physical Exam HEENT: Neck Supple W Full Motion Chest: Symmetric LUNGS: Clear to Auscultation Heart: S1S2, RRR (Sinus tach) Abdomen: Soft N/T Extremities: No Edema, No Calf Tenderness Neurology: alert, oriented, follow commands Assessment Assessment 1. Presyncope: Suspect from ETOH/opioids/BP meds and dehydration. EF and WM nml 2. Heavy alcoholism with occasional binging. 3. Hypotension due to above. Now off pressor, BP normotensive 4. LUIS: much improved 5. Depression: cymbalta use, Defer to PCP 6. Atypical CP: due to fall/rib fracture. no syncopal episode. No arrhythmias 7. Traumatic mechanical fall: left 12th rib nondisplaced fracture 8. Chronic back pain with intrathecal pump (fentanyl/morphine): noted severe cervical stenosis as well per CT. Pain mgmt following 9. Hx of HTN 10. Hypokalemia/hypomagnesemia: replace as warranted 11. Noncompliance: has been taken her meds on and off in the last few days 12. Reactiva sinus tach: no significant ectopies Recommendations 1. No further home lasix. Hold BP norvasc and coreg till BP is consistently adequate. 2. Replace K and Mg per level. 3. Supportive care 4. ETOH withdrawal protocol per PCP 5. Orthostatic readings today 6. Reinforced compliance and curbing ETOH. ROBBIE XIAO MD 09/18/18 0652: CARDIO Progress Notes Assessment Assessment Patient seen and examined 09/17/18. Agree with ASSISTANT PROFESSOR OF EDUCATION's assessment and plan. Blood pressure improved and patient is presently off pressors Telemetry did not show any significant arrhythmias Chest pain noncardiac and most probably musculoskeletal The importance of abstinence from alcohol abuse reemphasized KAYLYNN WILCOX APRN Sep 17, 2018 09:29 ROBBIE XIAO MD Sep 18, 2018 06:52
[2018-09-17 10:34] LABS: CALCIUM 8.2 mg/dL (8.5-10.1); CREATININE 0.9 mg/dL (0.6-1.0); GFR 63.2; MAGNESIUM 1.6 mg/dL (1.8-2.4); POTASSIUM 4.2 mmol/L (3.5-5.1)
[2018-09-17] MEDS ORDERED: MAGNESIUM SULFATE 2GM 50 ML IV ONE (11:00)
--- NOTE | 2018-09-17 14:18 | PDOC ---
PROGRESS NOTES Chief Complaint Chief Complaint 1. MULTIPLE FALLS etiology multifactorial 2. grade 1 anterolisthesis of C4-5 which is new since the previous study. This is secondary to degenerative facet arthropathy. 3. Alcohol abuse 4. depression 5. hypotension sec to hypovolemia 6. uti 7. chest discomfort plan: alcohol withdrawal precautions patient iv rocephin for UTI follow blood cultures Recommendations as pre cardiology: Recommendations 1. No further home lasix. Hold BP norvasc and coreg till BP is consistently adequate. 2. Replace K and Mg per level. 3. Supportive care 4. ETOH withdrawal protocol per PCP 5. Orthostatic readings today 6. Reinforced compliance and curbing ETOH. History of Present Illness History of Present Illness No complaints during my visit. Patient had no fever no CVA tenderness no hematuria reported no nausea or vomiting. Patient is still on the levophed but she is been weaned off the drip. Vitals Vitals Vital Signs Date Time Temp Pulse Resp B/P (MAP) Pulse Ox O2 Delivery O2 Flow Rate FiO2 09/17/18 12:01 100 109/63 (78) 09/17/18 12:00 98.4 16 98 Room Air 98.4 09/16/18 12:00 2.0 Physical Exam General: Alert, Oriented X3, Cooperative, No acute distress Heart: Regular rate (SR), Normal S1, Normal S2, No murmurs Abdomen: Soft, No tenderness Extremities: No cyanosis, No edema Skin: No breakdown, No significant lesion Labs LABS Laboratory Tests Test 09/17/18 10:15 Sodium Level 135 mmol/L (136-145) Potassium Level 4.2 mmol/L (3.5-5.1) Chloride Level 100 mmol/L (98-107) Carbon Dioxide Level 30 mmol/L (21-32) Anion Gap 5 (6-14) Blood Urea Nitrogen 16 mg/dL (7-20) Creatinine 0.9 mg/dL (0.6-1.0) Estimated GFR (Cockcroft-Gault) 63.2 Glucose Level 99 mg/dL (70-99) Calcium Level 8.2 mg/dL (8.5-10.1) Magnesium Level 1.6 mg/dL (1.8-2.4) Assessment and Plan Assessmemt and Plan Problems Medical Problems: (1) Chest pain Status: Acute (2) Fall Status: Acute (3) Shortness of breath Status: Acute Comment Review of Relevant I have reviewed the following items balbir (where applicable) has been applied. Labs Laboratory Tests Test 09/15/18 15:40 09/15/18 16:31 09/15/18 18:33 09/15/18 19:30 White Blood Count 5.9 x10^3/uL (4.0-11.0) Red Blood Count 4.40 x10^6/uL (3.50-5.40) Hemoglobin 13.1 g/dL (12.0-15.5) Hematocrit 40.2 % (36.0-47.0) Mean Corpuscular Volume 91 fL (79-100) Mean Corpuscular Hemoglobin 30 pg (25-35) Mean Corpuscular Hemoglobin Concent 33 g/dL (31-37) Red Cell Distribution Width 17.6 % (11.5-14.5) Platelet Count 155 x10^3/uL (140-400) Neutrophils (%) (Auto) 73 % (31-73) Lymphocytes (%) (Auto) 18 % (24-48) Monocytes (%) (Auto) 8 % (0-9) Eosinophils (%) (Auto) 0 % (0-3) Basophils (%) (Auto) 1 % (0-3) Neutrophils # (Auto) 4.3 x10^3uL (1.8-7.7) Lymphocytes # (Auto) 1.1 x10^3/uL (1.0-4.8) Monocytes # (Auto) 0.5 x10^3/uL (0.0-1.1) Eosinophils # (Auto) 0.0 x10^3/uL (0.0-0.7) Basophils # (Auto) 0.0 x10^3/uL (0.0-0.2) Sodium Level 136 mmol/L (136-145) Potassium Level 3.2 mmol/L (3.5-5.1) Chloride Level 88 mmol/L (98-107) Carbon Dioxide Level > 45 mmol/L (21-32) Anion Gap 3 (6-14) Blood Urea Nitrogen 25 mg/dL (7-20) Creatinine 1.4 mg/dL (0.6-1.0) Estimated GFR (Cockcroft-Gault) 38.0 BUN/Creatinine Ratio 18 (6-20) Glucose Level 116 mg/dL (70-99) Calcium Level 9.7 mg/dL (8.5-10.1) Magnesium Level 1.4 mg/dL (1.8-2.4) Total Bilirubin 3.4 mg/dL (0.2-1.0) Aspartate Amino Transf (AST/SGOT) 123 U/L (15-37) Alanine Aminotransferase (ALT/SGPT) 39 U/L (14-59) Alkaline Phosphatase 157 U/L (46-116) Troponin I Quantitative 0.019 ng/mL (0.000-0.055) Total Protein 6.6 g/dL (6.4-8.2) Albumin 2.8 g/dL (3.4-5.0) Albumin/Globulin Ratio 0.7 (1.0-1.7) Ethyl Alcohol Level < 10 mg/dL (0-10) O2 Saturation 97 % (92-99) Arterial Blood pH 7.54 (7.35-7.45) Arterial Blood pCO2 at Patient Temp 49 mmHg (35-46) Arterial Blood pO2 at Patient Temp 88 mmHg (65-108) Arterial Blood HCO3 41 mmol/L (21-28) Arterial Blood Base Excess 16 mmol/L (-3-3) Oxyhemoglobin 95.9 % Methemoglobin 0.3 % (0.0-1.9) Carbon Monoxide, Quantitative 0.4 % (0.0-1.9) FiO2 28% nc Urine Collection Type Unknown Urine Color [place] Urine Clarity Cloudy Urine pH 6.5 Urine Specific [place] 1.015 Urine Protein Negative mg/dL (NEG-TRACE) Urine Glucose (UA) Negative mg/dL (NEG) Urine Ketones (Stick) Negative mg/dL (NEG) Urine Blood Negative (NEG) Urine Nitrite Negative (NEG) Urine Bilirubin Small (NEG) Urine Urobilinogen Dipstick 2.0 mg/dL (0.2 mg/dL) Urine Leukocyte Esterase Large (NEG) Urine RBC 0 /HPF (0-2) Urine WBC >40 /HPF (0-4) Urine Squamous Epithelial Cells Mod /LPF Urine Transitional Epithelial Cells Few /LPF Urine Renal Epithelial Cells Occ /LPF Urine Bacteria Many /HPF (0-FEW) Urine Hyaline Casts Many /HPF Urine Granular Casts Occasional /HPF Urine Mucus Slight /LPF Nasal Screen MRSA (PCR) Negative (Negative) Test 2/26/19 21:15 09/15/18 22:25 09/16/18 02:45 09/16/18 08:50 Troponin I Quantitative < 0.017 ng/mL (0.000-0.055) Prothrombin Time 14.1 SEC (11.7-14.0) Prothromb Time International Ratio 1.1 (0.8-1.1) Fibrinogen 242 mg/dL (200-440) Lactic Acid Level 3.3 mmol/L (0.4-2.0) 1.4 mmol/L (0.4-2.0) Total Bilirubin 2.1 mg/dL (0.2-1.0) 2.0 mg/dL (0.2-1.0) Direct Bilirubin 1.6 mg/dL (0.0-0.2) Aspartate Amino Transf (AST/SGOT) 94 U/L (15-37) 108 U/L (15-37) Alanine Aminotransferase (ALT/SGPT) 31 U/L (14-59) 30 U/L (14-59) Alkaline Phosphatase 119 U/L (46-116) 130 U/L (46-116) Total Protein 5.1 g/dL (6.4-8.2) 5.6 g/dL (6.4-8.2) Albumin 2.2 g/dL (3.4-5.0) 2.3 g/dL (3.4-5.0) Procalcitonin 0.52 ng/mL (0.00-0.10) White Blood Count 6.1 x10^3/uL (4.0-11.0) 4.2 x10^3/uL (4.0-11.0) Red Blood Count 3.73 x10^6/uL (3.50-5.40) 3.82 x10^6/uL (3.50-5.40) Hemoglobin 11.2 g/dL (12.0-15.5) 11.6 g/dL (12.0-15.5) Hematocrit 34.3 % (36.0-47.0) 35.4 % (36.0-47.0) Mean Corpuscular Volume 92 fL (79-100) 93 fL (79-100) Mean Corpuscular Hemoglobin 30 pg (25-35) 30 pg (25-35) Mean Corpuscular Hemoglobin Concent 33 g/dL (31-37) 33 g/dL (31-37) Red Cell Distribution Width 17.6 % (11.5-14.5) 18.0 % (11.5-14.5) Platelet Count 150 x10^3/uL (140-400) 141 x10^3/uL (140-400) Neutrophils (%) (Auto) 67 % (31-73) Lymphocytes (%) (Auto) 22 % (24-48) Monocytes (%) (Auto) 9 % (0-9) Eosinophils (%) (Auto) 2 % (0-3) Basophils (%) (Auto) 1 % (0-3) Neutrophils # (Auto) 4.1 x10^3uL (1.8-7.7) Lymphocytes # (Auto) 1.3 x10^3/uL (1.0-4.8) Monocytes # (Auto) 0.5 x10^3/uL (0.0-1.1) Eosinophils # (Auto) 0.1 x10^3/uL (0.0-0.7) Basophils # (Auto) 0.0 x10^3/uL (0.0-0.2) Sodium Level 137 mmol/L (136-145) 140 mmol/L (136-145) Potassium Level 2.7 mmol/L (3.5-5.1) 3.8 mmol/L (3.5-5.1) Chloride Level 97 mmol/L (98-107) 99 mmol/L (98-107) Carbon Dioxide Level 34 mmol/L (21-32) 32 mmol/L (21-32) Anion Gap 6 (6-14) 9 (6-14) Blood Urea Nitrogen 23 mg/dL (7-20) 21 mg/dL (7-20) Creatinine 1.1 mg/dL (0.6-1.0) 1.0 mg/dL (0.6-1.0) Estimated GFR (Cockcroft-Gault) 50.2 56.0 BUN/Creatinine Ratio 21 (6-20) Glucose Level 126 mg/dL (70-99) 84 mg/dL (70-99) Calcium Level 7.9 mg/dL (8.5-10.1) 8.1 mg/dL (8.5-10.1) Magnesium Level 1.7 mg/dL (1.8-2.4) 1.7 mg/dL (1.8-2.4) Albumin/Globulin Ratio 0.7 (1.0-1.7) Test 09/16/18 13:00 09/17/18 10:15 Urine Opiates Screen Pos (NEG) Urine Methadone Screen Neg (NEG) Urine Barbiturates Neg (NEG) Urine Phencyclidine Screen Neg (NEG) Urine Amphetamine/Methamphetamine Neg (NEG) Urine Benzodiazepines Screen Neg (NEG) Urine Cocaine Screen Neg (NEG) Urine Cannabinoids Screen Neg (NEG) Urine Ethyl Alcohol Neg (NEG) Sodium Level 135 mmol/L (136-145) Potassium Level 4.2 mmol/L (3.5-5.1) Chloride Level 100 mmol/L (98-107) Carbon Dioxide Level 30 mmol/L (21-32) Anion Gap 5 (6-14) Blood Urea Nitrogen 16 mg/dL (7-20) Creatinine 0.9 mg/dL (0.6-1.0) Estimated GFR (Cockcroft-Gault) 63.2 Glucose Level 99 mg/dL (70-99) Calcium Level 8.2 mg/dL (8.5-10.1) Magnesium Level 1.6 mg/dL (1.8-2.4) Laboratory Tests Test 09/17/18 10:15 Sodium Level 135 mmol/L (136-145) Potassium Level 4.2 mmol/L (3.5-5.1) Chloride Level 100 mmol/L (98-107) Carbon Dioxide Level 30 mmol/L (21-32) Anion Gap 5 (6-14) Blood Urea Nitrogen 16 mg/dL (7-20) Creatinine 0.9 mg/dL (0.6-1.0) Estimated GFR (Cockcroft-Gault) 63.2 Glucose Level 99 mg/dL (70-99) Calcium Level 8.2 mg/dL (8.5-10.1) Magnesium Level 1.6 mg/dL (1.8-2.4) Microbiology 09/15/18 Blood Culture - Preliminary, Resulted NO GROWTH AFTER 1 DAY Medications Current Medications Sodium Chloride 1,000 ml @ 1,000 mls/hr 1X ONCE IV Last administered on at 15:35; Start 09/15/18 at 15:30; Stop 09/15/18 at 16:29; Status DC Sodium Chloride 1,000 ml @ 1,000 mls/hr 1X ONCE IV Last administered on at 17:09; Start 09/15/18 at 17:00; Stop 09/15/18 at 17:59; Status DC Magnesium Oxide (Magnesium Oxide) 400 mg DAILY PO Last administered on at 09:13; Start 09/15/18 at 18:15 Potassium Chloride (Klor-Con) 40 meq 1X ONCE PO Last administered on at 18:50; Start 09/15/18 at 18:15; Stop 09/15/18 at 18:16; Status DC Ondansetron HCl (Zofran) 4 mg PRN Q8HRS PRN IV NAUSEA/VOMITING; Start 09/15/18 at 18:15; Stop 09/16/18 at 18:14; Status DC Acetaminophen (Tylenol) 650 mg PRN Q4HRS PRN PO FEVER; Start 09/15/18 at 18:15 ; Stop 09/16/18 at 18:14; Status DC Sodium Chloride 1,000 ml @ 1,000 mls/hr 1X ONCE IV Last administered on at 18:51; Start 09/15/18 at 18:45; Stop 09/15/18 at 19:44; Status DC Sodium Chloride 1,000 ml @ 150 mls/hr 1X ONCE IV Last administered on at 22:35; Start 09/15/18 at 18:45; Stop 09/16/18 at 01:24; Status DC Multivitamins 10 ml/Thiamine HCl 100 mg/Folic Acid 1 mg/Sodium Chloride 1,011.2 ml @ 100 mls/ hr DAILY IV Last administered on 09/17/18at 09:13; Start at 09:00; Stop 09/20/18 at 19:07 Multivitamins (Thera M Plus) 1 tab DAILY PO Last administered on 09/16/18at 10: 05; Start 09/16/18 at 09:00; Stop 09/16/18 at 14:51; Status DC Folic Acid (Folic Acid) 1 mg DAILY PO Last administered on 09/16/18at 10:05; Start 09/16/18 at 09:00; Stop 09/16/18 at 14:53; Status DC Thiamine HCl 100 mg/Dextrose 51 ml @ 100 mls/hr DAILY IV ; Start 09/16/18 at 09 :00; Stop 09/20/18 at 09:31; Status Cancel Lorazepam (Ativan) 4 mg PRN Q1HR PRN PO For CIWA 8-14; Start 09/15/18 at 21:45 Lorazepam (Ativan) 8 mg PRN Q1HR PRN PO For CIWA 15 or greater; Start 09/15/18 at 21:45 Lorazepam (Ativan) 2 mg PRN Q1HR PRN IV For CIWA 8-14; Start 09/15/18 at 21:45 Lorazepam (Ativan) 4 mg PRN Q1HR PRN IV For CIWA 15 or greater; Start 09/15/18 at 21:45 Haloperidol Lactate (Haldol Inj) 5 mg PRN Q4HRS PRN IVP Hallucinatns,Confusn, Delirium; Start 09/15/18 at 21:45 Diphenhydramine HCl (Benadryl) 25 mg PRN Q15MIN PRN IVP EPS symptoms 2'Haldol admin; Start 09/15/18 at 21:45 Clonidine HCl (Catapres) 0.1 mg PRN Q1HR PRN PO SBP > 180 or DBP > 100, MRX3; Start 09/15/18 at 21:45 Lorazepam (Ativan) 2 mg PRN Q15MIN PRN IV ANXIETY / AGITATION; Start 09/15/18 at 21:45 Lorazepam (Ativan) 4 mg PRN Q15MIN PRN IV ANXIETY / AGITATION; Start 09/15/18 at 21:45 Ceftriaxone Sodium (Rocephin) 2 gm Q24H IVP Last administered on 09/16/18at 22: 58; Start 09/15/18 at 22:00 Potassium Chloride (Klor-Con) 40 meq 1X ONCE PO ; Start 09/15/18 at 22:00; Stop 09/16/18 at 04:14; Status DC Potassium Chloride (Klor-Con) 20 meq [id number] PO Last administered on at 09:12; Start 09/16/18 at 08:00 Sodium Chloride 1,500 ml @ 1,500 mls/hr Q1H IV ; Start 09/15/18 at 21:44; Stop 09/15/18 at 22:44; Status DC Sodium Chloride 500 ml @ 1,000 mls/hr PRN Q30MIN PRN IV SEE COMMENTS; Start at 21:45 Norepinephrine Bitartrate 250 ml @ 0 mls/hr CONT PRN IV SEE I/O RECORD Last administered on 09/16/18at 06:44; Start 09/15/18 at 21:45 Dobutamine HCl/ Dextrose 250 ml @ 0 mls/hr CONT PRN IV SEE I/O RECORD; Start at 21:45 Magnesium Sulfate/ Dextrose 100 ml @ 100 mls/hr 1X ONCE IV Last administered on 09/15/18at 22:22; Start 09/15/18 at 22:00; Stop 09/15/18 at 22:59; Status DC Potassium Chloride (Klor-Con) 70 meq 1X ONCE PO Last administered on at 04:36; Start 09/16/18 at 04:30; Stop 09/16/18 at 04:31; Status DC Vancomycin HCl (Vanco Per Pharmacy) 1 each PRN DAILY PRN MC SEE COMMENTS; Start 09/16/18 at 07:15; Stop 09/16/18 at 08:27; Status DC Vancomycin HCl 1.5 gm/Sodium Chloride 500 ml @ 250 mls/hr 1X ONCE IV ; Start 09/16/18 at 08:00; Stop 09/16/18 at 09:59; Status Cancel Lactobacillus Rhamnosus (Culturelle) 1 cap BID PO Last administered on at 09:12; Start 09/16/18 at 09:00 Lorazepam (Ativan) 1 mg PRN Q6HRS PRN PO ANXIETY / AGITATION; Start 09/16/18 at 08:30 Magnesium Sulfate 50 ml @ 25 mls/hr 1X ONCE IV Last administered on 09/16/18at 15:16; Start 09/16/18 at 10:15; Stop 09/16/18 at 12:14; Status DC Multivitamins (Thera M Plus) 1 tab DAILY PO ; Start 09/21/18 at 09:00 Folic Acid (Folic Acid) 1 mg DAILY PO ; Start 09/21/18 at 09:00 Magnesium Sulfate 50 ml @ 25 mls/hr 1X ONCE IV ; Start 09/16/18 at 16:00; Stop 09/16/18 at 17:59; Status Cancel Info (FLU VACCINE SCREEN per RX) 1 each PRN 1X PRN MC SEE COMMENTS; Start 09/17 at 09:15; Status UNV Influenza Virus Vaccine (Afluria Trivalent [id number] Syringe) 0.5 ml ONCE ONCE VAX IM Last administered on 09/17/18at 11:57; Start 09/17/18 at 12:00; Stop at 12:01; Status DC Magnesium Sulfate 50 ml @ 25 mls/hr 1X ONCE IV Last administered on 09/17/18at 10:54; Start 09/17/18 at 11:00; Stop 09/17/18 at 12:59; Status DC Active Scripts Active Reported Protonix (Pantoprazole Sodium) 20 Mg Tablet.dr 2 Tab PO DAILY Mirtazapine 30 Mg Tablet 1 Tab PO QHS Furosemide 40 Mg Tablet 1 Tab PO DAILY Duloxetine Hcl 60 Mg Capsule.dr 60 Mg PO DAILY Carvedilol 25 Mg Tablet 25 Mg PO BIDWMEALS Amlodipine Besylate 5 Mg Tablet 5 Mg PO DAILY Vitals/I & O Vital Sign - Last 24 Hours 09/16/18 09/16/18 09/16/18 09/16/18 15:00 16:00 16:00 17:00 Temp 98.3 98.3 Pulse 87 78 81 Resp 22 20 18 B/P (MAP) 105/69 (81) 96/73 (81) 82/54 (63) Pulse Ox 96 95 95 O2 Delivery Room Air Room Air Room Air Room Air 09/16/18 09/16/18 09/16/18 09/16/18 18:00 19:00 20:00 20:00 Temp 98.5 98.5 Pulse 85 89 82 Resp 24 48 30 B/P (MAP) 114/73 (87) 120/76 (91) 108/74 (85) Pulse Ox 95 96 94 O2 Delivery Room Air Room Air Room Air Room Air 09/16/18 09/16/18 09/16/18 09/16/18 21:00 22:00 23:00 23:59 Pulse 106 81 87 Resp 25 20 18 B/P (MAP) 140/86 (104) 92/57 (69) 103/63 (76) Pulse Ox 97 98 95 O2 Delivery Room Air Room Air Room Air Room Air 09/17/18 09/17/18 09/17/18 09/17/18 00:00 01:00 02:00 03:00 Temp 98.2 98.2 Pulse 81 78 78 78 Resp 15 29 12 21 B/P (MAP) 100/76 (84) 117/78 (91) 89/59 (69) 107/65 (79) Pulse Ox 95 95 93 94 O2 Delivery Room Air Room Air Room Air Room Air 09/17/18 09/17/18 09/17/18 09/17/18 04:00 04:00 05:00 05:15 Temp 98.5 98.5 Pulse 82 80 92 Resp 20 14 21 B/P (MAP) 120/72 (88) 105/65 (78) 135/86 (102) Pulse Ox 95 95 99 O2 Delivery Room Air Room Air Room Air Room Air 09/17/18 09/17/18 09/17/18 09/17/18 05:30 06:00 07:00 08:00 Temp 98.2 98.2 Pulse 94 87 86 92 Resp 17 20 18 16 B/P (MAP) 122/71 (88) 114/71 (85) 133/79 (97) 107/67 (80) Pulse Ox 98 98 99 98 O2 Delivery Room Air Room Air Room Air Room Air 09/17/18 09/17/18 09/17/18 09/17/18 08:00 09:00 10:00 12:00 Temp 98.4 98.4 Pulse 118 96 106 Resp 18 18 16 B/P (MAP) 105/71 (82) 119/65 (83) 102/46 (64) Pulse Ox 99 96 98 O2 Delivery Room Air Room Air Room Air Room Air 09/17/18 09/17/18 12:01 12:01 Pulse 110 100 B/P (MAP) 110/108 (109) 109/63 (78) Intake and Output 09/16/18 09/16/18 09/17/18 15:00 23:00 07:00 Intake Total 500 ml 238 ml 783 ml Output Total 250 ml 150 ml 200 ml Balance 250 ml 88 ml 583 ml KEL IVORY MD Sep 17, 2018 14:18
[2018-09-17] MEDS: PANTOPRAZOLE 40 MG TABLET.DR. PO SCH (16:07)
[2018-09-17] MEDS: DULoxetine HCL 30 MG CAPSULE.DR PO SCH (16:07)
--- NOTE | 2018-09-17 18:25 | NUR ---
Pt transferred to room 674 from ICU 111.
[2018-09-17] MEDS: cefTRIAXone IV Push 2 GM VIAL. IVP SCH (21:19)
[2018-09-17] MEDS: MIRTAZAPINE 15 MG TABLET PO SCH (21:19)
[2018-09-17] MEDS: ACETAMINOPHEN 325 MG TABLET. PO PRN (22:05)
[2018-09-18 03:30] VITALS: BP 125/69
[2018-09-18 07:15] VITALS: BP 129/79
[2018-09-18] MEDS: LACTOBACILLUS RHAMNOSUS GG 1 CAPSULE. PO SCH ×2 (08:04→20:12)
[2018-09-18] MEDS: POTASSIUM CHLORIDE 20 MEQ TABLET.ER. PO SCH (08:04)
[2018-09-18] MEDS: DULoxetine HCL 30 MG CAPSULE.DR PO SCH (08:04)
[2018-09-18] MEDS: MAGNESIUM OXIDE 400 MG TABLET PO SCH (08:05)
[2018-09-18] MEDS: PANTOPRAZOLE 40 MG TABLET.DR. PO SCH (08:05)
[2018-09-18] MEDS: ACETAMINOPHEN 325 MG TABLET. PO PRN ×3 (08:13→20:13)
[2018-09-18 08:17] LABS: CALCIUM 8.1 mg/dL (8.5-10.1); CREATININE 0.8 mg/dL (0.6-1.0); GFR 72.4; MAGNESIUM 1.8 mg/dL (1.8-2.4)
[2018-09-18] MEDS: MULTIVIT INFUSN,ADULT 4,VIT K 10 ML, THIAMINE INJ 100 MG, FOLIC ACID INJ 1 MG in IV NOR... IV SCH (09:57)
[2018-09-18] MEDS ORDERED: IV NORMAL SALINE 1000ML BAG 1,000 ML IV ONE (11:00)
[2018-09-18 11:06] VITALS: BP 104/64
--- NOTE | 2018-09-18 11:23 | EKG ---
[facility] [address] [place] [address] Test Date: 2018-09-18 Test Time: 11:14:20 Pat Name: HERMINIO WASHINGTON Department: Room: 674 1 Gender: F [employer]: DARRELL : [id number] Requested By: JEFERSON SPRINGER Order Number: [id number] Reading MD: Mariusz Lira MD Measurements Intervals [place] Rate: 103 P: -35 ID: [id number] QRS: 3 QRSD: 76 T: 14 QT: 320 QTc: 421 Interpretive Statements SINUS TACHYCARDIA Electronically Signed On 09-22-2018 8:07:34 CONSULTING SALES MANAGER by Mariusz Lira MD
--- NOTE | 2018-09-18 11:46 | PDOC ---
PROGRESS NOTES Chief Complaint Chief Complaint 1. MULTIPLE FALLS etiology multifactorial 2. grade 1 anterolisthesis of C4-5 which is new since the previous study. This is secondary to degenerative facet arthropathy. 3. Alcohol abuse 4. depression 5. hypotension sec to hypovolemia 6. uti 7. chest discomfort 8. SINUS TACH DUE TO ETOH WITHDRAWAL plan: alcohol withdrawal precautions patient iv rocephin for UTI follow blood cultures Recommendations as pre cardiology: PLAN 1. No further home lasix. Hold BP norvasc and coreg till BP is consistently adequate. 2. Replace K and Mg per level. 3. Supportive care 4. ETOH withdrawal protocol 5. Orthostatic readings 6. Reinforced compliance and curbing ETOH. History of Present Illness History of Present Illness 09/18 SINUS TACH THIS AM RATE 115-140 volume depleted, will bolus with one liter NS UTI SUSPECTED, CONT IV ROCEPHIN PRN ATIVAN Vitals Vitals Vital Signs Date Time Temp Pulse Resp B/P (MAP) Pulse Ox O2 Delivery O2 Flow Rate FiO2 09/18/18 11:06 99.0 105 20 104/64 (77) 100 Room Air 99.0 Physical Exam General: Alert, Oriented X3, Cooperative, No acute distress, mild distress Heart: Regular rate ( TACHY), Normal S1, Normal S2, No murmurs Abdomen: Soft, No tenderness Extremities: No cyanosis, No edema Skin: No breakdown, No significant lesion Labs LABS Laboratory Tests Test 09/18/18 07:54 Sodium Level 137 mmol/L (136-145) Potassium Level 4.0 mmol/L (3.5-5.1) Chloride Level 101 mmol/L (98-107) Carbon Dioxide Level 30 mmol/L (21-32) Anion Gap 6 (6-14) Blood Urea Nitrogen 12 mg/dL (7-20) Creatinine 0.8 mg/dL (0.6-1.0) Estimated GFR (Cockcroft-Gault) 72.4 Glucose Level 106 mg/dL (70-99) Calcium Level 8.1 mg/dL (8.5-10.1) Magnesium Level 1.8 mg/dL (1.8-2.4) Assessment and Plan Assessmemt and Plan Problems Medical Problems: (1) Chest pain Status: Acute (2) Fall Status: Acute (3) Shortness of breath Status: Acute Comment Review of Relevant I have reviewed the following items balbir (where applicable) has been applied. Labs Laboratory Tests Test 09/16/18 13:00 09/17/18 10:15 09/18/18 07:54 Urine Opiates Screen Pos (NEG) Urine Methadone Screen Neg (NEG) Urine Barbiturates Neg (NEG) Urine Phencyclidine Screen Neg (NEG) Urine Amphetamine/Methamphetamine Neg (NEG) Urine Benzodiazepines Screen Neg (NEG) Urine Cocaine Screen Neg (NEG) Urine Cannabinoids Screen Neg (NEG) Urine Ethyl Alcohol Neg (NEG) Sodium Level 135 mmol/L (136-145) 137 mmol/L (136-145) Potassium Level 4.2 mmol/L (3.5-5.1) 4.0 mmol/L (3.5-5.1) Chloride Level 100 mmol/L (98-107) 101 mmol/L (98-107) Carbon Dioxide Level 30 mmol/L (21-32) 30 mmol/L (21-32) Anion Gap 5 (6-14) 6 (6-14) Blood Urea Nitrogen 16 mg/dL (7-20) 12 mg/dL (7-20) Creatinine 0.9 mg/dL (0.6-1.0) 0.8 mg/dL (0.6-1.0) Estimated GFR (Cockcroft-Gault) 63.2 72.4 Glucose Level 99 mg/dL (70-99) 106 mg/dL (70-99) Calcium Level 8.2 mg/dL (8.5-10.1) 8.1 mg/dL (8.5-10.1) Magnesium Level 1.6 mg/dL (1.8-2.4) 1.8 mg/dL (1.8-2.4) Laboratory Tests Test 09/18/18 07:54 Sodium Level 137 mmol/L (136-145) Potassium Level 4.0 mmol/L (3.5-5.1) Chloride Level 101 mmol/L (98-107) Carbon Dioxide Level 30 mmol/L (21-32) Anion Gap 6 (6-14) Blood Urea Nitrogen 12 mg/dL (7-20) Creatinine 0.8 mg/dL (0.6-1.0) Estimated GFR (Cockcroft-Gault) 72.4 Glucose Level 106 mg/dL (70-99) Calcium Level 8.1 mg/dL (8.5-10.1) Magnesium Level 1.8 mg/dL (1.8-2.4) Microbiology 09/15/18 Blood Culture - Preliminary, Resulted NO GROWTH AFTER 2 DAYS Medications Current Medications Sodium Chloride 1,000 ml @ 1,000 mls/hr 1X ONCE IV Last administered on at 15:35; Start 09/15/18 at 15:30; Stop 09/15/18 at 16:29; Status DC Sodium Chloride 1,000 ml @ 1,000 mls/hr 1X ONCE IV Last administered on at 17:09; Start 09/15/18 at 17:00; Stop 09/15/18 at 17:59; Status DC Magnesium Oxide (Magnesium Oxide) 400 mg DAILY PO Last administered on at 08:05; Start 09/15/18 at 18:15 Potassium Chloride (Klor-Con) 40 meq 1X ONCE PO Last administered on at 18:50; Start 09/15/18 at 18:15; Stop 09/15/18 at 18:16; Status DC Ondansetron HCl (Zofran) 4 mg PRN Q8HRS PRN IV NAUSEA/VOMITING; Start 09/15/18 at 18:15; Stop 09/16/18 at 18:14; Status DC Acetaminophen (Tylenol) 650 mg PRN Q4HRS PRN PO FEVER; Start 09/15/18 at 18:15 ; Stop 09/16/18 at 18:14; Status DC Sodium Chloride 1,000 ml @ 1,000 mls/hr 1X ONCE IV Last administered on at 18:51; Start 09/15/18 at 18:45; Stop 09/15/18 at 19:44; Status DC Sodium Chloride 1,000 ml @ 150 mls/hr 1X ONCE IV Last administered on at 22:35; Start 09/15/18 at 18:45; Stop 09/16/18 at 01:24; Status DC Multivitamins 10 ml/Thiamine HCl 100 mg/Folic Acid 1 mg/Sodium Chloride 1,011.2 ml @ 100 mls/ hr DAILY IV Last administered on 09/18/18at 09:57; Start 09/16/18 at 09:00; Stop 09/18/18 at 22:00 Multivitamins (Thera M Plus) 1 tab DAILY PO Last administered on 09/16/18at 10: 05; Start 09/16/18 at 09:00; Stop 09/16/18 at 14:51; Status DC Folic Acid (Folic Acid) 1 mg DAILY PO Last administered on 09/16/18at 10:05; Start 09/16/18 at 09:00; Stop 09/16/18 at 14:53; Status DC Thiamine HCl 100 mg/Dextrose 51 ml @ 100 mls/hr DAILY IV ; Start 09/16/18 at 09 :00; Stop 09/20/18 at 09:31; Status Cancel Lorazepam (Ativan) 4 mg PRN Q1HR PRN PO For CIWA 8-14; Start 09/15/18 at 21:45 Lorazepam (Ativan) 8 mg PRN Q1HR PRN PO For CIWA 15 or greater; Start 09/15/18 at 21:45 Lorazepam (Ativan) 2 mg PRN Q1HR PRN IV For CIWA 8-14; Start 09/15/18 at 21:45 Lorazepam (Ativan) 4 mg PRN Q1HR PRN IV For CIWA 15 or greater; Start 09/15/18 at 21:45 Haloperidol Lactate (Haldol Inj) 5 mg PRN Q4HRS PRN IVP Hallucinatns,Confusn, Delirium; Start 09/15/18 at 21:45 Diphenhydramine HCl (Benadryl) 25 mg PRN Q15MIN PRN IVP EPS symptoms 2'Haldol admin; Start 09/15/18 at 21:45 Clonidine HCl (Catapres) 0.1 mg PRN Q1HR PRN PO SBP > 180 or DBP > 100, MRX3; Start 09/15/18 at 21:45 Lorazepam (Ativan) 2 mg PRN Q15MIN PRN IV ANXIETY / AGITATION; Start 09/15/18 at 21:45 Lorazepam (Ativan) 4 mg PRN Q15MIN PRN IV ANXIETY / AGITATION; Start 09/15/18 at 21:45 Ceftriaxone Sodium (Rocephin) 2 gm Q24H IVP Last administered on 09/17/18at 21: 19; Start 09/15/18 at 22:00 Potassium Chloride (Klor-Con) 40 meq 1X ONCE PO ; Start 09/15/18 at 22:00; Stop 09/16/18 at 04:14; Status DC Potassium Chloride (Klor-Con) 20 meq DAILYWBKFT PO Last administered on at 08:04; Start 09/16/18 at 08:00 Sodium Chloride 1,500 ml @ 1,500 mls/hr Q1H IV ; Start 09/15/18 at 21:44; Stop 09/15/18 at 22:44; Status DC Sodium Chloride 500 ml @ 1,000 mls/hr PRN Q30MIN PRN IV SEE COMMENTS; Start at 21:45 Norepinephrine Bitartrate 250 ml @ 0 mls/hr CONT PRN IV SEE I/O RECORD Last administered on 09/16/18at 06:44; Start 09/15/18 at 21:45; Stop 09/18/18 at 05:14 ; Status DC Dobutamine HCl/ Dextrose 250 ml @ 0 mls/hr CONT PRN IV SEE I/O RECORD; Start at 21:45; Stop 09/18/18 at 05:12; Status DC Magnesium Sulfate/ Dextrose 100 ml @ 100 mls/hr 1X ONCE IV Last administered on 09/15/18at 22:22; Start 09/15/18 at 22:00; Stop 09/15/18 at 22:59; Status DC Potassium Chloride (Klor-Con) 70 meq 1X ONCE PO Last administered on at 04:36; Start 09/16/18 at 04:30; Stop 09/16/18 at 04:31; Status DC Vancomycin HCl (Vanco Per Pharmacy) 1 each PRN DAILY PRN MC SEE COMMENTS; Start 09/16/18 at 07:15; Stop 09/16/18 at 08:27; Status DC Vancomycin HCl 1.5 gm/Sodium Chloride 500 ml @ 250 mls/hr 1X ONCE IV ; Start 09/16/18 at 08:00; Stop 09/16/18 at 09:59; Status Cancel Lactobacillus Rhamnosus (Culturelle) 1 cap BID PO Last administered on at 08:04; Start 09/16/18 at 09:00 Lorazepam (Ativan) 1 mg PRN Q6HRS PRN PO ANXIETY / AGITATION; Start 09/16/18 at 08:30 Magnesium Sulfate 50 ml @ 25 mls/hr 1X ONCE IV Last administered on 09/16/18at 15:16; Start 09/16/18 at 10:15; Stop 09/16/18 at 12:14; Status DC Multivitamins (Thera M Plus) 1 tab DAILY PO ; Start 09/19/18 at 09:00 Folic Acid (Folic Acid) 1 mg DAILY PO ; Start 09/19/18 at 09:00 Magnesium Sulfate 50 ml @ 25 mls/hr 1X ONCE IV ; Start 09/16/18 at 16:00; Stop 09/16/18 at 17:59; Status Cancel Info (FLU VACCINE SCREEN per RX) 1 each PRN 1X PRN MC SEE COMMENTS; Start 09/17 at 09:15; Status UNV Influenza Virus Vaccine (Afluria Trivalent [id number] Syringe) 0.5 ml ONCE ONCE VAX IM Last administered on 09/17/18at 11:57; Start 09/17/18 at 12:00; Stop at 12:01; Status DC Magnesium Sulfate 50 ml @ 25 mls/hr 1X ONCE IV Last administered on 09/17/18at 10:54; Start 09/17/18 at 11:00; Stop 09/17/18 at 12:59; Status DC Duloxetine HCl (Cymbalta) 60 mg DAILY PO Last administered on 09/18/18at 08:04; Start 09/17/18 at 16:00 Mirtazapine (Remeron) 30 mg QHS PO Last administered on 09/17/18at 21:19; Start 09/17/18 at 21:00 Pantoprazole Sodium (Protonix) 40 mg DAILYAC PO Last administered on 09/18/18at 08:05; Start 09/17/18 at 16:00 Acetaminophen (Tylenol) 650 mg PRN Q4HRS PRN PO HEADACHE Last administered on at 08:13; Start 09/17/18 at 21:45 Thiamine Mononitrate (Vitamin B-1) 100 mg DAILY PO ; Start 09/19/18 at 09:00 Sodium Chloride 1,000 ml @ 1,000 mls/hr 1X ONCE IV ; Start 09/18/18 at 11:00; Stop 09/18/18 at 11:59 Active Scripts Active Reported Protonix (Pantoprazole Sodium) 20 Mg Tablet.dr 2 Tab PO DAILY Mirtazapine 30 Mg Tablet 1 Tab PO QHS Furosemide 40 Mg Tablet 1 Tab PO DAILY Duloxetine Hcl 60 Mg Capsule.dr 60 Mg PO DAILY Carvedilol 25 Mg Tablet 25 Mg PO BIDWMEALS Amlodipine Besylate 5 Mg Tablet 5 Mg PO DAILY Vitals/I & O Vital Sign - Last 24 Hours 09/17/18 09/17/18 09/17/18 09/17/18 12:00 12:01 12:01 16:00 Temp 98.4 97.6 98.4 97.6 Pulse 106 110 100 98 Resp 16 18 B/P (MAP) 102/46 (64) 110/108 (109) 109/63 (78) 118/68 (85) Pulse Ox 98 98 O2 Delivery Room Air Room Air 09/17/18 09/17/18 09/17/18 09/18/18 19:30 20:10 23:25 03:30 Temp 99.3 99.1 99.5 99.3 99.1 99.5 Pulse 105 112 108 Resp 18 18 18 B/P (MAP) 103/60 (74) 97/55 (69) 125/69 (87) Pulse Ox 96 95 95 O2 Delivery Room Air Room Air Room Air Room Air 09/18/18 09/18/18 09/18/18 07:15 08:06 11:06 Temp 99.6 99.0 99.6 99.0 Pulse 102 105 Resp 20 20 B/P (MAP) 129/79 (96) 104/64 (77) Pulse Ox 97 100 O2 Delivery Room Air Room Air Room Air Intake and Output 09/17/18 09/17/18 09/18/18 15:00 23:00 07:00 Intake Total 480 ml 1110 ml 100 ml Output Total 200 ml 400 ml Balance 280 ml 710 ml 100 ml JEFERSON SPRINGER MD Sep 18, 2018 11:46
[2018-09-18 15:04] VITALS: BP 140/80
[2018-09-18 19:58] VITALS: BP 125/81
[2018-09-18] MEDS: MIRTAZAPINE 15 MG TABLET PO SCH (20:13)
[2018-09-18] MEDS: cefTRIAXone IV Push 2 GM VIAL. IVP SCH (22:47)
[2018-09-18 23:34] VITALS: BP 129/81
[2018-09-19 03:41] VITALS: BP 120/70
[2018-09-19 04:56] LABS: BASO % 1 % (0-3); EOS # 0.1 x10^3/uL (0.0-0.7); EOS % 2 % (0-3); HEMATOCRIT 29.9 % (36.0-47.0); HEMOGLOBIN 9.6 g/dL (12.0-15.5); LYMPH # 0.7 x10^3/uL (1.0-4.8); LYMPH % 16 % (24-48); MEAN CORPUSCULAR HEMOGLOBIN 30 pg (25-35); MEAN CORPUSCULAR HGB CONC 32 g/dL (31-37); MEAN CORPUSCULAR VOLUME 94 fL (79-100); MONO # 0.6 x10^3/uL (0.0-1.1); MONO % 14 % (0-9); NEUT # 2.9 x10^3uL (1.8-7.7); NEUT % 68 % (31-73); PLATELET COUNT 165 x10^3/uL (140-400); RED BLOOD COUNT 3.17 x10^6/uL (3.50-5.40); RED CELL DISTRIBUTION WIDTH 18.6 % (11.5-14.5); WHITE BLOOD COUNT 4.3 x10^3/uL (4.0-11.0)
[2018-09-19 05:23] LABS: ALBUMIN 1.9 g/dL (3.4-5.0); ALBUMIN/GLOBULIN RATIO 0.6 (1.0-1.7); CREATININE 0.8 mg/dL (0.6-1.0); GFR 72.4; POTASSIUM 3.6 mmol/L (3.5-5.1); TOTAL BILIRUBIN 0.7 mg/dL (0.2-1.0); TOTAL PROTEIN 5.1 g/dL (6.4-8.2)
[2018-09-19 08:00] VITALS: BP 148/89
[2018-09-19] MEDS: THIAMINE 100 MG TABLET. PO SCH (08:47)
[2018-09-19] MEDS: PANTOPRAZOLE 40 MG TABLET.DR. PO SCH (08:47)
[2018-09-19] MEDS: DULoxetine HCL 30 MG CAPSULE.DR PO SCH (08:47)
[2018-09-19] MEDS: LACTOBACILLUS RHAMNOSUS GG 1 CAPSULE. PO SCH ×2 (08:47→20:48)
[2018-09-19] MEDS: FOLIC ACID 1 MG TABLET. PO SCH (08:48)
[2018-09-19] MEDS: POTASSIUM CHLORIDE 20 MEQ TABLET.ER. PO SCH (08:48)
[2018-09-19] MEDS: MAGNESIUM OXIDE 400 MG TABLET PO SCH (08:48)
[2018-09-19] MEDS: MULTIVITAMIN with MINERAL TABLET. PO SCH (08:48)
[2018-09-19] MEDS: ACETAMINOPHEN 325 MG TABLET. PO PRN ×2 (08:52→17:34)
--- NOTE | 2018-09-19 11:20 | PDOC ---
PROGRESS NOTES Chief Complaint Chief Complaint 1. MULTIPLE FALLS etiology multifactorial 2. grade 1 anterolisthesis of C4-5 which is new since the previous study. This is secondary to degenerative facet arthropathy. 3. Alcohol abuse, SEVERE 4. depression 5. hypotension sec to hypovolemia 6. uti 7. chest discomfort 8. SINUS TACH DUE TO ETOH WITHDRAWAL 9. 2 GM DROP IN HGB 09/19 10. severe protein-caloric malnutrition plan: alcohol withdrawal precautions patient iv rocephin for UTI follow blood cultures OCCULT STOOLS DIETARY SUPPLEMENTS PLAN 1. Hold norvasc and coreg till BP is consistently adequate. 2. Replace K and Mg per level. 3. Supportive care 4. ETOH withdrawal protocol 5. Orthostatic readings 6. Reinforced compliance and curbing ETOH. 7. IV PROTONIX 8. heme test stools 9. GI consult re possible PUD/ ANEMIA History of Present Illness History of Present Illness 09/18 SINUS TACH THIS AM RATE 115-140 volume depleted, will bolus with one liter NS UTI SUSPECTED, CONT IV ROCEPHIN PRN ATIVAN / DROP IN HGB MAY BE DUE TO HYDRATION VS GI BLOOD LOSS Vitals Vitals Vital Signs Date Time Temp Pulse Resp B/P (MAP) Pulse Ox O2 Delivery O2 Flow Rate FiO2 09/19/18 08:00 Room Air 2.0 09/19/18 08:00 98.4 113 18 148/89 (108) 100 98.4 Physical Exam General: Alert, Oriented X3, Cooperative, No acute distress, mild distress Heart: Regular rate ( TACHY), Normal S1, Normal S2, No murmurs Lungs: Clear Abdomen: Normal bowel sounds, Soft, No tenderness Extremities: No cyanosis, No edema Skin: No breakdown, No significant lesion Labs LABS Laboratory Tests Test 09/19/18 04:15 White Blood Count 4.3 x10^3/uL (4.0-11.0) Red Blood Count 3.17 x10^6/uL (3.50-5.40) Hemoglobin 9.6 g/dL (12.0-15.5) Hematocrit 29.9 % (36.0-47.0) Mean Corpuscular Volume 94 fL (79-100) Mean Corpuscular Hemoglobin 30 pg (25-35) Mean Corpuscular Hemoglobin Concent 32 g/dL (31-37) Red Cell Distribution Width 18.6 % (11.5-14.5) Platelet Count 165 x10^3/uL (140-400) Neutrophils (%) (Auto) 68 % (31-73) Lymphocytes (%) (Auto) 16 % (24-48) Monocytes (%) (Auto) 14 % (0-9) Eosinophils (%) (Auto) 2 % (0-3) Basophils (%) (Auto) 1 % (0-3) Neutrophils # (Auto) 2.9 x10^3uL (1.8-7.7) Lymphocytes # (Auto) 0.7 x10^3/uL (1.0-4.8) Monocytes # (Auto) 0.6 x10^3/uL (0.0-1.1) Eosinophils # (Auto) 0.1 x10^3/uL (0.0-0.7) Basophils # (Auto) 0.0 x10^3/uL (0.0-0.2) Sodium Level 141 mmol/L (136-145) Potassium Level 3.6 mmol/L (3.5-5.1) Chloride Level 106 mmol/L (98-107) Carbon Dioxide Level 27 mmol/L (21-32) Anion Gap 8 (6-14) Blood Urea Nitrogen 10 mg/dL (7-20) Creatinine 0.8 mg/dL (0.6-1.0) Estimated GFR (Cockcroft-Gault) 72.4 BUN/Creatinine Ratio 13 (6-20) Glucose Level 132 mg/dL (70-99) Calcium Level 8.0 mg/dL (8.5-10.1) Total Bilirubin 0.7 mg/dL (0.2-1.0) Aspartate Amino Transf (AST/SGOT) 105 U/L (15-37) Alanine Aminotransferase (ALT/SGPT) 48 U/L (14-59) Alkaline Phosphatase 135 U/L (46-116) Total Protein 5.1 g/dL (6.4-8.2) Albumin 1.9 g/dL (3.4-5.0) Albumin/Globulin Ratio 0.6 (1.0-1.7) Assessment and Plan Assessmemt and Plan Problems Medical Problems: (1) Chest pain Status: Acute (2) Fall Status: Acute (3) Shortness of breath Status: Acute Comment Review of Relevant I have reviewed the following items balbir (where applicable) has been applied. Labs Laboratory Tests Test 09/18/18 07:54 09/19/18 04:15 Sodium Level 137 mmol/L (136-145) 141 mmol/L (136-145) Potassium Level 4.0 mmol/L (3.5-5.1) 3.6 mmol/L (3.5-5.1) Chloride Level 101 mmol/L (98-107) 106 mmol/L (98-107) Carbon Dioxide Level 30 mmol/L (21-32) 27 mmol/L (21-32) Anion Gap 6 (6-14) 8 (6-14) Blood Urea Nitrogen 12 mg/dL (7-20) 10 mg/dL (7-20) Creatinine 0.8 mg/dL (0.6-1.0) 0.8 mg/dL (0.6-1.0) Estimated GFR (Cockcroft-Gault) 72.4 72.4 Glucose Level 106 mg/dL (70-99) 132 mg/dL (70-99) Calcium Level 8.1 mg/dL (8.5-10.1) 8.0 mg/dL (8.5-10.1) Magnesium Level 1.8 mg/dL (1.8-2.4) White Blood Count 4.3 x10^3/uL (4.0-11.0) Red Blood Count 3.17 x10^6/uL (3.50-5.40) Hemoglobin 9.6 g/dL (12.0-15.5) Hematocrit 29.9 % (36.0-47.0) Mean Corpuscular Volume 94 fL (79-100) Mean Corpuscular Hemoglobin 30 pg (25-35) Mean Corpuscular Hemoglobin Concent 32 g/dL (31-37) Red Cell Distribution Width 18.6 % (11.5-14.5) Platelet Count 165 x10^3/uL (140-400) Neutrophils (%) (Auto) 68 % (31-73) Lymphocytes (%) (Auto) 16 % (24-48) Monocytes (%) (Auto) 14 % (0-9) Eosinophils (%) (Auto) 2 % (0-3) Basophils (%) (Auto) 1 % (0-3) Neutrophils # (Auto) 2.9 x10^3uL (1.8-7.7) Lymphocytes # (Auto) 0.7 x10^3/uL (1.0-4.8) Monocytes # (Auto) 0.6 x10^3/uL (0.0-1.1) Eosinophils # (Auto) 0.1 x10^3/uL (0.0-0.7) Basophils # (Auto) 0.0 x10^3/uL (0.0-0.2) BUN/Creatinine Ratio 13 (6-20) Total Bilirubin 0.7 mg/dL (0.2-1.0) Aspartate Amino Transf (AST/SGOT) 105 U/L (15-37) Alanine Aminotransferase (ALT/SGPT) 48 U/L (14-59) Alkaline Phosphatase 135 U/L (46-116) Total Protein 5.1 g/dL (6.4-8.2) Albumin 1.9 g/dL (3.4-5.0) Albumin/Globulin Ratio 0.6 (1.0-1.7) Laboratory Tests Test 09/19/18 04:15 White Blood Count 4.3 x10^3/uL (4.0-11.0) Red Blood Count 3.17 x10^6/uL (3.50-5.40) Hemoglobin 9.6 g/dL (12.0-15.5) Hematocrit 29.9 % (36.0-47.0) Mean Corpuscular Volume 94 fL (79-100) Mean Corpuscular Hemoglobin 30 pg (25-35) Mean Corpuscular Hemoglobin Concent 32 g/dL (31-37) Red Cell Distribution Width 18.6 % (11.5-14.5) Platelet Count 165 x10^3/uL (140-400) Neutrophils (%) (Auto) 68 % (31-73) Lymphocytes (%) (Auto) 16 % (24-48) Monocytes (%) (Auto) 14 % (0-9) Eosinophils (%) (Auto) 2 % (0-3) Basophils (%) (Auto) 1 % (0-3) Neutrophils # (Auto) 2.9 x10^3uL (1.8-7.7) Lymphocytes # (Auto) 0.7 x10^3/uL (1.0-4.8) Monocytes # (Auto) 0.6 x10^3/uL (0.0-1.1) Eosinophils # (Auto) 0.1 x10^3/uL (0.0-0.7) Basophils # (Auto) 0.0 x10^3/uL (0.0-0.2) Sodium Level 141 mmol/L (136-145) Potassium Level 3.6 mmol/L (3.5-5.1) Chloride Level 106 mmol/L (98-107) Carbon Dioxide Level 27 mmol/L (21-32) Anion Gap 8 (6-14) Blood Urea Nitrogen 10 mg/dL (7-20) Creatinine 0.8 mg/dL (0.6-1.0) Estimated GFR (Cockcroft-Gault) 72.4 BUN/Creatinine Ratio 13 (6-20) Glucose Level 132 mg/dL (70-99) Calcium Level 8.0 mg/dL (8.5-10.1) Total Bilirubin 0.7 mg/dL (0.2-1.0) Aspartate Amino Transf (AST/SGOT) 105 U/L (15-37) Alanine Aminotransferase (ALT/SGPT) 48 U/L (14-59) Alkaline Phosphatase 135 U/L (46-116) Total Protein 5.1 g/dL (6.4-8.2) Albumin 1.9 g/dL (3.4-5.0) Albumin/Globulin Ratio 0.6 (1.0-1.7) Microbiology 09/15/18 Blood Culture - Preliminary, Resulted NO GROWTH AFTER 3 DAYS Medications Current Medications Sodium Chloride 1,000 ml @ 1,000 mls/hr 1X ONCE IV Last administered on at 15:35; Start 09/15/18 at 15:30; Stop 09/15/18 at 16:29; Status DC Sodium Chloride 1,000 ml @ 1,000 mls/hr 1X ONCE IV Last administered on at 17:09; Start 09/15/18 at 17:00; Stop 09/15/18 at 17:59; Status DC Magnesium Oxide (Magnesium Oxide) 400 mg DAILY PO Last administered on 08:48; Start 09/15/18 at 18:15 Potassium Chloride (Klor-Con) 40 meq 1X ONCE PO Last administered on at 18:50; Start 09/15/18 at 18:15; Stop 09/15/18 at 18:16; Status DC Ondansetron HCl (Zofran) 4 mg PRN Q8HRS PRN IV NAUSEA/VOMITING; Start 09/15/18 at 18:15; Stop 09/16/18 at 18:14; Status DC Acetaminophen (Tylenol) 650 mg PRN Q4HRS PRN PO FEVER; Start 09/15/18 at 18:15 ; Stop 09/16/18 at 18:14; Status DC Sodium Chloride 1,000 ml @ 1,000 mls/hr 1X ONCE IV Last administered on at 18:51; Start 09/15/18 at 18:45; Stop 09/15/18 at 19:44; Status DC Sodium Chloride 1,000 ml @ 150 mls/hr 1X ONCE IV Last administered on at 22:35; Start 09/15/18 at 18:45; Stop 09/16/18 at 01:24; Status DC Multivitamins 10 ml/Thiamine HCl 100 mg/Folic Acid 1 mg/Sodium Chloride 1,011.2 ml @ 100 mls/ hr DAILY IV Last administered on 09/18/18at 09:57; Start 09/16/18 at 09:00; Stop 09/18/18 at 22:00; Status DC Multivitamins (Thera M Plus) 1 tab DAILY PO Last administered on 09/16/18at 10: 05; Start 09/16/18 at 09:00; Stop 09/16/18 at 14:51; Status DC Folic Acid (Folic Acid) 1 mg DAILY PO Last administered on 09/16/18at 10:05; Start 09/16/18 at 09:00; Stop 09/16/18 at 14:53; Status DC Thiamine HCl 100 mg/Dextrose 51 ml @ 100 mls/hr DAILY IV ; Start 09/16/18 at 09 :00; Stop 09/20/18 at 09:31; Status Cancel Lorazepam (Ativan) 4 mg PRN Q1HR PRN PO For CIWA 8-14; Start 09/15/18 at 21:45 Lorazepam (Ativan) 8 mg PRN Q1HR PRN PO For CIWA 15 or greater; Start 09/15/18 at 21:45 Lorazepam (Ativan) 2 mg PRN Q1HR PRN IV For CIWA 8-14; Start 09/15/18 at 21:45 Lorazepam (Ativan) 4 mg PRN Q1HR PRN IV For CIWA 15 or greater; Start 09/15/18 at 21:45 Haloperidol Lactate (Haldol Inj) 5 mg PRN Q4HRS PRN IVP Hallucinatns,Confusn, Delirium; Start 09/15/18 at 21:45 Diphenhydramine HCl (Benadryl) 25 mg PRN Q15MIN PRN IVP EPS symptoms 2'Haldol admin; Start 09/15/18 at 21:45 Clonidine HCl (Catapres) 0.1 mg PRN Q1HR PRN PO SBP > 180 or DBP > 100, MRX3; Start 09/15/18 at 21:45 Lorazepam (Ativan) 2 mg PRN Q15MIN PRN IV ANXIETY / AGITATION; Start 09/15/18 at 21:45; Stop 09/18/18 at 15:45; Status DC Lorazepam (Ativan) 4 mg PRN Q15MIN PRN IV ANXIETY / AGITATION; Start 09/15/18 at 21:45; Stop 09/18/18 at 15:45; Status DC Ceftriaxone Sodium (Rocephin) 2 gm Q24H IVP Last administered on 09/18/18at 22:47 ; Start 09/15/18 at 22:00 Potassium Chloride (Klor-Con) 40 meq 1X ONCE PO ; Start 09/15/18 at 22:00; Stop 09/16/18 at 04:14; Status DC Potassium Chloride (Klor-Con) 20 meq DAILYWBKFT PO Last administered on at 08:48; Start 09/16/18 at 08:00 Sodium Chloride 1,500 ml @ 1,500 mls/hr Q1H IV ; Start 09/15/18 at 21:44; Stop 09/15/18 at 22:44; Status DC Sodium Chloride 500 ml @ 1,000 mls/hr PRN Q30MIN PRN IV SEE COMMENTS; Start at 21:45 Norepinephrine Bitartrate 250 ml @ 0 mls/hr CONT PRN IV SEE I/O RECORD Last administered on 09/16/18at 06:44; Start 09/15/18 at 21:45; Stop 09/18/18 at 05:14 ; Status DC Dobutamine HCl/ Dextrose 250 ml @ 0 mls/hr CONT PRN IV SEE I/O RECORD; Start at 21:45; Stop 09/18/18 at 05:12; Status DC Magnesium Sulfate/ Dextrose 100 ml @ 100 mls/hr 1X ONCE IV Last administered on 09/15/18at 22:22; Start 09/15/18 at 22:00; Stop 09/15/18 at 22:59; Status DC Potassium Chloride (Klor-Con) 70 meq 1X ONCE PO Last administered on at 04:36; Start 09/16/18 at 04:30; Stop 09/16/18 at 04:31; Status DC Vancomycin HCl (Vanco Per Pharmacy) 1 each PRN DAILY PRN MC SEE COMMENTS; Start 09/16/18 at 07:15; Stop 09/16/18 at 08:27; Status DC Vancomycin HCl 1.5 gm/Sodium Chloride 500 ml @ 250 mls/hr 1X ONCE IV ; Start 09/16/18 at 08:00; Stop 09/16/18 at 09:59; Status Cancel Lactobacillus Rhamnosus (Culturelle) 1 cap BID PO Last administered on at 08:47; Start 09/16/18 at 09:00 Lorazepam (Ativan) 1 mg PRN Q6HRS PRN PO ANXIETY / AGITATION; Start 09/16/18 at 08:30 Magnesium Sulfate 50 ml @ 25 mls/hr 1X ONCE IV Last administered on 09/16/18at 15:16; Start 09/16/18 at 10:15; Stop 09/16/18 at 12:14; Status DC Multivitamins (Thera M Plus) 1 tab DAILY PO Last administered on 09/19/18at 08:48 ; Start 09/19/18 at 09:00 Folic Acid (Folic Acid) 1 mg DAILY PO Last administered on 09/19/18at 08:48; Start 09/19/18 at 09:00 Magnesium Sulfate 50 ml @ 25 mls/hr 1X ONCE IV ; Start 09/16/18 at 16:00; Stop 09/16/18 at 17:59; Status Cancel Info (FLU VACCINE SCREEN per RX) 1 each PRN 1X PRN MC SEE COMMENTS; Start 09/17 at 09:15; Status UNV Influenza Virus Vaccine (Afluria Trivalent [id number] Syringe) 0.5 ml ONCE ONCE VAX IM Last administered on 09/17/18at 11:57; Start 09/17/18 at 12:00; Stop at 12:01; Status DC Magnesium Sulfate 50 ml @ 25 mls/hr 1X ONCE IV Last administered on 09/17/18at 10:54; Start 09/17/18 at 11:00; Stop 09/17/18 at 12:59; Status DC Duloxetine HCl (Cymbalta) 60 mg DAILY PO Last administered on 09/19/18 08:47; Start 09/17/18 at 16:00 Mirtazapine (Remeron) 30 mg QHS PO Last administered on 09/18/18at 20:13; Start 09/17/18 at 21:00 Pantoprazole Sodium (Protonix) 40 mg DAILYAC PO Last administered on 09/19/18at 08:47; Start 09/17/18 at 16:00 Acetaminophen (Tylenol) 650 mg PRN Q4HRS PRN PO HEADACHE Last administered on 08:52; Start 09/17/18 at 21:45 Thiamine Mononitrate (Vitamin B-1) 100 mg DAILY PO Last administered on 08:47; Start 09/19/18 at 09:00 Sodium Chloride 1,000 ml @ 1,000 mls/hr 1X ONCE IV Last administered on at 12:00; Start 09/18/18 at 11:00; Stop 09/18/18 at 11:59; Status DC Active Scripts Active Reported Protonix (Pantoprazole Sodium) 20 Mg Tablet.dr 2 Tab PO DAILY Mirtazapine 30 Mg Tablet 1 Tab PO QHS Furosemide 40 Mg Tablet 1 Tab PO DAILY Duloxetine Hcl 60 Mg Capsule.dr 60 Mg PO DAILY Carvedilol 25 Mg Tablet 25 Mg PO BIDWMEALS Amlodipine Besylate 5 Mg Tablet 5 Mg PO DAILY Vitals/I & O Vital Sign - Last 24 Hours 09/18/18 09/18/18 09/18/18 09/18/18 15:04 19:58 20:00 23:34 Temp 98.7 99.2 99.4 98.7 99.2 99.4 Pulse 113 114 116 Resp 18 18 16 B/P (MAP) 140/80 (100) 125/81 (96) 129/81 (97) Pulse Ox 99 97 91 O2 Delivery Room Air Room Air Room Air Room Air 09/19/18 09/19/18 09/19/18 03:41 08:00 08:00 Temp 98.0 98.4 98.0 98.4 Pulse 113 113 Resp 18 18 B/P (MAP) 120/70 (87) 148/89 (108) Pulse Ox 96 100 O2 Delivery Room Air Room Air Room Air O2 Flow Rate 2.0 Intake and Output 09/18/18 09/18/18 09/19/18 14:59 22:59 06:59 Intake Total 420 ml 280 ml 1231.2 ml Output Total 402 ml 2 ml Balance 18 ml 278 ml 1231.2 ml JEFERSON SPRINGER MD Sep 19, 2018 11:20
[2018-09-19 12:02] VITALS: BP 134/80
[2018-09-19 14:47] LABS: FECAL OB PT NEGATIVE (NEG)
[2018-09-19 16:00] VITALS: BP 133/84
[2018-09-19 20:23] VITALS: BP 132/77
[2018-09-19] MEDS: MIRTAZAPINE 15 MG TABLET PO SCH (20:48)
[2018-09-19] MEDS: cefTRIAXone IV Push 2 GM VIAL. IVP SCH (21:48)
[2018-09-19 23:30] VITALS: BP 125/79
[2018-09-20 04:30] VITALS: BP 157/62
[2018-09-20 05:40] LABS: BASO # 0.1 x10^3/uL (0.0-0.2); BASO % 1 % (0-3); EOS # 0.1 x10^3/uL (0.0-0.7); EOS % 2 % (0-3); HEMATOCRIT 33.9 % (36.0-47.0); LYMPH % 19 % (24-48); MEAN CORPUSCULAR HEMOGLOBIN 31 pg (25-35); MEAN CORPUSCULAR HGB CONC 33 g/dL (31-37); MEAN CORPUSCULAR VOLUME 96 fL (79-100); MONO # 0.6 x10^3/uL (0.0-1.1); MONO % 11 % (0-9); NEUT # 3.9 x10^3uL (1.8-7.7); NEUT % 68 % (31-73); PLATELET COUNT 201 x10^3/uL (140-400); RED BLOOD COUNT 3.54 x10^6/uL (3.50-5.40); RED CELL DISTRIBUTION WIDTH 19.6 % (11.5-14.5); WHITE BLOOD COUNT 5.7 x10^3/uL (4.0-11.0)
[2018-09-20 05:57] LABS: CALCIUM 8.6 mg/dL (8.5-10.1); CREATININE 0.8 mg/dL (0.6-1.0); GFR 72.4; POTASSIUM 4.1 mmol/L (3.5-5.1)
[2018-09-20 08:01] VITALS: BP 147/91
[2018-09-20] MEDS: THIAMINE 100 MG TABLET. PO SCH (08:43)
[2018-09-20] MEDS: ACETAMINOPHEN 325 MG TABLET. PO PRN ×2 (08:43→16:48)
[2018-09-20] MEDS: LACTOBACILLUS RHAMNOSUS GG 1 CAPSULE. PO SCH ×2 (08:43→21:28)
[2018-09-20] MEDS: MAGNESIUM OXIDE 400 MG TABLET PO SCH (08:43)
[2018-09-20] MEDS: MULTIVITAMIN with MINERAL TABLET. PO SCH (08:43)
[2018-09-20] MEDS: FOLIC ACID 1 MG TABLET. PO SCH (08:43)
[2018-09-20] MEDS: PANTOPRAZOLE IV PUSH 40 MG VIAL. IVP SCH (08:44)
[2018-09-20] MEDS: POTASSIUM CHLORIDE 20 MEQ TABLET.ER. PO SCH (08:44)
[2018-09-20] MEDS: DULoxetine HCL 30 MG CAPSULE.DR PO SCH (08:44)
--- NOTE | 2018-09-20 08:53 | PDOC2 ---
GI CONSULT HPI: HPI: Herminio Ruggiero is a 63 years old female patient with past medical history of hypertension, anxiety/depression, alcoholism and chronic back pain s/p multiple back surgeries ( with fusion ) and narcotics ( fentanyl/morphine) based intrathecal pump implantation. She is currently admitted to the hospital after she presented with atypical chest pain,dizziness and fall down accidents. GI consulted for concern of underlying PUD. Patient reports she has been dealing with underlying anxiety/depression after she lost her 9 years ago with heart attack. She admits her alcohol consumption has increased since then. She reports she drinks at least 5 shots of Bussey mist whiskey on daily basis. She has attempted to stop drinking in the past with no success. She used to attend AA meeting in the past. She reports she ran out of her whiskey around and went for 4 days with out drinking alcohol. She indicates she was feeling weak, dizzy and lightheaded over the week ends. She had also her appetite with decreased intake. She indicates her symptoms had worsened on Friday when she felt more dizzy and lightheaded with multiple fall down accidents. She started having chest pain after the fourth fall prompting her to call 911 and ended up admitted to the hospital. She denies nausea, vomiting, dysphagia or odynophagia. Patient reports she has not had reflux symptoms for several years. However, she has continued to take high dose PPI on BID basis. No change in bowel habits with no diarrhea or constipation. No melena or hematochezia. No fev , chills or sweating. She had unremarkable colonoscopic exam a year ago by Dr. Donovan Strickland and was told to have repeat colonoscopic exam after 10 years. PMH: PMH: Hypertension, anxiety/depression, alcoholism,chronic back pain s/p intrathecal pump implantation. FH: Family History: No pertinent hx Social History: Smoke: No ALCOHOL: heavy Drugs: None ROS: GEN: Denies fevers, chills, sweats HEENT: Denies blurred vision, sore throat CV: Denies chest pain RESP: Denies shortness of air, cough GI: Per HPI : Denies hematuria, dysuria ENDO: Denies weight changes NEURO: Denies confusion, dizziness MSK: Denies weakness, joint pain/swelling SKIN: Denies jaundice, pruritus Vitals: Vitals: Vital Signs Date Time Temp Pulse Resp B/P (MAP) Pulse Ox O2 Delivery O2 Flow Rate FiO2 09/20/18 08:01 98.0 109 19 147/91 (109) 98 Room Air 98.0 09/19/18 08:00 2.0 Labs: Labs: Laboratory Tests Test 09/19/18 14:00 09/20/18 04:53 Stool Occult Blood Negative (NEG) White Blood Count 5.7 x10^3/uL (4.0-11.0) Red Blood Count 3.54 x10^6/uL (3.50-5.40) Hemoglobin 11.0 g/dL (12.0-15.5) Hematocrit 33.9 % (36.0-47.0) Mean Corpuscular Volume 96 fL (79-100) Mean Corpuscular Hemoglobin 31 pg (25-35) Mean Corpuscular Hemoglobin Concent 33 g/dL (31-37) Red Cell Distribution Width 19.6 % (11.5-14.5) Platelet Count 201 x10^3/uL (140-400) Neutrophils (%) (Auto) 68 % (31-73) Lymphocytes (%) (Auto) 19 % (24-48) Monocytes (%) (Auto) 11 % (0-9) Eosinophils (%) (Auto) 2 % (0-3) Basophils (%) (Auto) 1 % (0-3) Neutrophils # (Auto) 3.9 x10^3uL (1.8-7.7) Lymphocytes # (Auto) 1.0 x10^3/uL (1.0-4.8) Monocytes # (Auto) 0.6 x10^3/uL (0.0-1.1) Eosinophils # (Auto) 0.1 x10^3/uL (0.0-0.7) Basophils # (Auto) 0.1 x10^3/uL (0.0-0.2) Sodium Level 140 mmol/L (136-145) Potassium Level 4.1 mmol/L (3.5-5.1) Chloride Level 105 mmol/L (98-107) Carbon Dioxide Level 28 mmol/L (21-32) Anion Gap 7 (6-14) Blood Urea Nitrogen 9 mg/dL (7-20) Creatinine 0.8 mg/dL (0.6-1.0) Estimated GFR (Cockcroft-Gault) 72.4 Glucose Level 97 mg/dL (70-99) Calcium Level 8.6 mg/dL (8.5-10.1) Allergies: Coded Allergies: tramadol (Verified Allergy, Intermediate, 04/19/16) Medications: Current Medications Medications (Trade) Dose Ordered Sig/Sunny Route PRN Reason Start Time Stop Time Status Last Admin Dose Admin Multivitamins (Thera M Plus) 1 tab DAILY PO 09/19/18 09:00 09/20/18 08:43 Folic Acid (Folic Acid) 1 mg DAILY PO 09/19/18 09:00 09/20/18 08:43 Thiamine Mononitrate (Vitamin B-1) 100 mg DAILY PO 09/19/18 09:00 09/20/18 08:43 Pantoprazole Sodium (PROTONIX VIAL for IV PUSH) 40 mg DAILYAC IVP 09/20/18 07:30 09/20/18 08:44 Imaging: [place] [address] [place] [address] IMAGING REPORT Signed PATIENT: HERMINIO WASHINGTON ACCOUNT: [id number] : 1955 LOCATION: ER AGE: 63 SEX: F EXAM STATUS: REG ER ORD. PHYSICIAN: ANILA CHEN APRN REASON: falls today- head/neck/upper back pain PROCEDURE: CT HEAD AND CERVICAL SPINE WO CT HEAD AND CERVICAL SPINE WO Clinical indications: MULTIPLE FALLS TODAY, DIZZINESS, NECK PAIN NONCONTRAST HEAD CT COMPARISON: April 20, 2016. Technique: Noncontrast axial cross sectional scanning of the head was performed. PQRS compliance Statement One or more of the following individualized dose reduction techniques were utilized for this study: 1. Automated exposure control 2. Adjustment of the mA and/or kV according to patient size 3. Use of iterative reconstruction technique Findings: No acute intracranial hemorrhage or midline shift or mass-effect or hydrocephalus or extra-axial fluid collection is seen. No focal hypodense area or sulci effacement is seen to indicate an acute infarct or edema radiographically. No skull fracture or pneumocephalus is seen. No opacification of the mastoid sinuses or the middle ear cavities is seen. Impression: No acute intracranial abnormality is seen. CERVICAL SPINE CT WITHOUT CONTRAST TECHNIQUE: Noncontrast helical CT scanning of the cervical spine was performed. Multiplanar 2-D reconstructions were generated. FINDINGS: There is grade 1 anterolisthesis of C4-5 which is new since the previous study. This is secondary to degenerative facet arthropathy. No acute fracture or perching of facet joints is evident. There is retrolisthesis of C6 on C7 with loss of the disc space here. There is severe degenerative disc space narrowing at C5-6. These findings were seen previously. No lytic process or discitis is seen. IMPRESSION: No acute fracture. Degenerative cervical spondylosis. Electronically signed by: Owen Gonzalez MD (09/15/2018 4:23 PM) [facility] DICTATED and SIGNED BY: OWEN GONZALEZ MD DATE: 09/15/18 1613 ECHOCARDIOGRAM: The left ventricle is normal size. The left ventricular systolic function is normal and the ejection fraction is within normal range. The Ejection Fraction is 55-60%. There is no significant aortic valvular stenosis. Doppler and Color Flow revealed trace aortic regurgitation. Doppler and Color-flow revealed trace mitral regurgitation. Doppler and Color Flow revealed mild tricuspid regurgitation. The PA pressure was estimated at 30 mmHg. Signed by : Damien Sanches MD Electronically Approved : 09/16/2018 14:20:29 DICTATED and SIGNED BY: DAMIEN SANCHES MD DATE: 09/16/18 1420 PE: GEN: NAD HEENT: Atraumatic, PERRLA LUNGS: CTAB HEART: RRR, no murmurs ABD: NABS, S/ND/NT, no masses. Has subcutaneous edema. EXTREMITY: No edema SKIN: No rashes, no jaundice NEURO/PSYCH: A & O 3 A/P: A/P: Herminio Ruggiero is a 63 years old female patient with past medical history of hypertension, anxiety/depression, alcoholism and chronic back pain s/p narcotics ( fentanyl/morphine) based intrathecal pump implantation. She is currently admitted to the hospital after she presented with atypical chest pain, dizziness and fall down accidents. Cardiology on board . Echocardiogram and imaging of the head and neck with no acute process. GI consulted for concern of underlying PUD and anemia with no overt GI bleeding. Labs notable for normocytic anemia ( Hgb 11.0) with anisocytosis. Platelets was 141 on blood work obtained on 09/16. Has mildly elevated aminotransferases with AST 105 and ALT 48 in setting of history of alcoholism in the past. Recommendations: - Continue with supportive care as per primary team. - CIWA protocol. - Monitor lytes and replace as needed. - Decrease PPI to 20mg BID. - Send iron studies with ferritin. - Check for folate and B12. - Send for KATHRYN,ASMA and IgG. - Check for Hepatitis Panel. - Ultrasound of the abdomen. - Patient advised to stop drinking alcohol. She is agreeable to restart attending AA meetings. - Advised to follow up with GI as out patient for anemia with no overt GI bleeding. Thank you for involving us in the care of this interesting patient. WALTER ALONSO MD Sep 20, 2018 08:53
[2018-09-20] MEDS ORDERED: FUROSEMIDE 40 MG/4 ML VIAL. IVP ONE (10:15)
[2018-09-20 11:48] VITALS: BP 127/77
--- NOTE | 2018-09-20 12:02 | EKG ---
[facility] [address] [place] [address] Test Date: 2018-09-20 Test Time: 11:57:34 Pat Name: HERMINIO WASHINGTON Department: Room: 674 1 Gender: F [employer] Driver: : 1955 Requested By: JEFERSON SPRINGER Order Number: [id number] Reading MD: Mariusz Lira MD Measurements Intervals [place] Rate: 119 P: 51 NH: 156 QRS: 10 QRSD: 72 T: 36 QT: 284 QTc: 406 Interpretive Statements SINUS TACHYCARDIA Electronically Signed On 09-22-2018 7:01:13 JIG FILLER by Mariusz Lira MD
--- NOTE | 2018-09-20 12:31 | PDOC ---
PROGRESS NOTES Chief Complaint Chief Complaint 1. MULTIPLE FALLS etiology multifactorial 2. grade 1 anterolisthesis of C4-5 which is new since the previous study. This is secondary to degenerative facet arthropathy. 3. Alcohol abuse, SEVERE 4. depression 5. hypotension sec to hypovolemia 6. uti, E COLI SEN TO ROCEPHIN, AUGMENTIN 7. chest discomfort 8. SINUS TACH DUE TO ETOH WITHDRAWAL 3/ 9. 2 GM DROP IN HGB 3/2 hgb now 11.0 10. severe protein-caloric malnutrition 3/3 tachy earlier likely from etoh withdrawal cxr mild vascular congestion gave 60 mg iv lasix x 1 plan: alcohol withdrawal precautions patient iv rocephin for UTI follow blood cultures OCCULT STOOLS DIETARY SUPPLEMENTS GI CONSULT PLAN 1. Hold norvasc and coreg till BP is consistently adequate. 2. Replace K and Mg per level. 3. Supportive care 4. ETOH withdrawal protocol 5. Orthostatic readings 6. Reinforced compliance and curbing ETOH. 7. IV PROTONIX 8. heme test stools 9. GI consult re possible PUD/ ANEMIA History of Present Illness History of Present Illness 3 SINUS TACH THIS AM RATE 115-140 volume depleted, will bolus with one liter NS UTI SUSPECTED, CONT IV ROCEPHIN PRN ATIVAN 3/2 DROP IN HGB MAY BE DUE TO HYDRATION VS GI BLOOD LOSS 3/3V STILL HAVING WITHDRAWAL SYMPTOMS, COREG ON BOARD CXR MILD PULM VASC CONGESTION Vitals Vitals Vital Signs Date Time Temp Pulse Resp B/P (MAP) Pulse Ox O2 Delivery O2 Flow Rate FiO2 09/20/18 11:48 98.3 92 19 127/77 (94) 97 Room Air 98.3 09/19/18 08:00 2.0 Physical Exam General: Alert, Oriented X3, Cooperative, No acute distress, mild distress Heart: Regular rate ( TACHY), Normal S1, Normal S2, No murmurs Lungs: Clear Abdomen: Normal bowel sounds, Soft, No tenderness Extremities: No cyanosis, No edema Skin: No breakdown, No significant lesion Labs LABS URINE CULTURE Final Final report URINE CULTURE RES 1 Final Escherichia coli Greater than 100,000 colony forming units per mL Cefazolin <=4 ug/mL Cefazolin with an REMIGIO <=16 predicts susceptibility to the oral agents cefaclor, cefdinir, cefpodoxime, cefprozil, cefuroxime, cephalexin, and loracarbef when used for therapy of uncomplicated urinary tract infections due to E. coli, Klebsiella pneumoniae, and Proteus mirabilis. ANTIMICROBIAL SUSCEPTIBILITY Final Comment S = Susceptible; I = Intermediate; R = Resistant P = Positive; N = Negative MICS are expressed in micrograms per mL Antibiotic RSLT#1 RSLT#2 RSLT#3 RSLT#4 Amoxicillin/Clavulanic Acid I =16 Ampicillin R>=32 Cefepime S<=0.12 Ceftriaxone S<=0.25 Cefuroxime S =4 Ciprofloxacin S<=0.25 Ertapenem S<=0.12 Gentamicin S<=1 Imipenem S<=0.25 Levofloxacin S<=0.12 Meropenem S<=0.25 Nitrofurantoin S<=16 Piperacillin/Tazobactam S<=4 Tetracycline S<=1 Tobramycin S<=1 Trimethoprim/Sulfa S<=20 Performed at: - [facility] [address] [facility] [address], [place], [place] [id number] Laboratory Tests Test 09/19/18 14:00 09/20/18 04:53 Stool Occult Blood Negative (NEG) White Blood Count 5.7 x10^3/uL (4.0-11.0) Red Blood Count 3.54 x10^6/uL (3.50-5.40) Hemoglobin 11.0 g/dL (12.0-15.5) Hematocrit 33.9 % (36.0-47.0) Mean Corpuscular Volume 96 fL (79-100) Mean Corpuscular Hemoglobin 31 pg (25-35) Mean Corpuscular Hemoglobin Concent 33 g/dL (31-37) Red Cell Distribution Width 19.6 % (11.5-14.5) Platelet Count 201 x10^3/uL (140-400) Neutrophils (%) (Auto) 68 % (31-73) Lymphocytes (%) (Auto) 19 % (24-48) Monocytes (%) (Auto) 11 % (0-9) Eosinophils (%) (Auto) 2 % (0-3) Basophils (%) (Auto) 1 % (0-3) Neutrophils # (Auto) 3.9 x10^3uL (1.8-7.7) Lymphocytes # (Auto) 1.0 x10^3/uL (1.0-4.8) Monocytes # (Auto) 0.6 x10^3/uL (0.0-1.1) Eosinophils # (Auto) 0.1 x10^3/uL (0.0-0.7) Basophils # (Auto) 0.1 x10^3/uL (0.0-0.2) Sodium Level 140 mmol/L (136-145) Potassium Level 4.1 mmol/L (3.5-5.1) Chloride Level 105 mmol/L (98-107) Carbon Dioxide Level 28 mmol/L (21-32) Anion Gap 7 (6-14) Blood Urea Nitrogen 9 mg/dL (7-20) Creatinine 0.8 mg/dL (0.6-1.0) Estimated GFR (Cockcroft-Gault) 72.4 Glucose Level 97 mg/dL (70-99) Calcium Level 8.6 mg/dL (8.5-10.1) Assessment and Plan Assessmemt and Plan Problems Medical Problems: (1) Chest pain Status: Acute (2) Fall Status: Acute (3) Shortness of breath Status: Acute Comment Review of Relevant I have reviewed the following items balbir (where applicable) has been applied. Labs Laboratory Tests Test 09/19/18 04:15 09/19/18 14:00 09/20/18 04:53 White Blood Count 4.3 x10^3/uL (4.0-11.0) 5.7 x10^3/uL (4.0-11.0) Red Blood Count 3.17 x10^6/uL (3.50-5.40) 3.54 x10^6/uL (3.50-5.40) Hemoglobin 9.6 g/dL (12.0-15.5) 11.0 g/dL (12.0-15.5) Hematocrit 29.9 % (36.0-47.0) 33.9 % (36.0-47.0) Mean Corpuscular Volume 94 fL (79-100) 96 fL (79-100) Mean Corpuscular Hemoglobin 30 pg (25-35) 31 pg (25-35) Mean Corpuscular Hemoglobin Concent 32 g/dL (31-37) 33 g/dL (31-37) Red Cell Distribution Width 18.6 % (11.5-14.5) 19.6 % (11.5-14.5) Platelet Count 165 x10^3/uL (140-400) 201 x10^3/uL (140-400) Neutrophils (%) (Auto) 68 % (31-73) 68 % (31-73) Lymphocytes (%) (Auto) 16 % (24-48) 19 % (24-48) Monocytes (%) (Auto) 14 % (0-9) 11 % (0-9) Eosinophils (%) (Auto) 2 % (0-3) 2 % (0-3) Basophils (%) (Auto) 1 % (0-3) 1 % (0-3) Neutrophils # (Auto) 2.9 x10^3uL (1.8-7.7) 3.9 x10^3uL (1.8-7.7) Lymphocytes # (Auto) 0.7 x10^3/uL (1.0-4.8) 1.0 x10^3/uL (1.0-4.8) Monocytes # (Auto) 0.6 x10^3/uL (0.0-1.1) 0.6 x10^3/uL (0.0-1.1) Eosinophils # (Auto) 0.1 x10^3/uL (0.0-0.7) 0.1 x10^3/uL (0.0-0.7) Basophils # (Auto) 0.0 x10^3/uL (0.0-0.2) 0.1 x10^3/uL (0.0-0.2) Sodium Level 141 mmol/L (136-145) 140 mmol/L (136-145) Potassium Level 3.6 mmol/L (3.5-5.1) 4.1 mmol/L (3.5-5.1) Chloride Level 106 mmol/L (98-107) 105 mmol/L (98-107) Carbon Dioxide Level 27 mmol/L (21-32) 28 mmol/L (21-32) Anion Gap 8 (6-14) 7 (6-14) Blood Urea Nitrogen 10 mg/dL (7-20) 9 mg/dL (7-20) Creatinine 0.8 mg/dL (0.6-1.0) 0.8 mg/dL (0.6-1.0) Estimated GFR (Cockcroft-Gault) 72.4 72.4 BUN/Creatinine Ratio 13 (6-20) Glucose Level 132 mg/dL (70-99) 97 mg/dL (70-99) Calcium Level 8.0 mg/dL (8.5-10.1) 8.6 mg/dL (8.5-10.1) Total Bilirubin 0.7 mg/dL (0.2-1.0) Aspartate Amino Transf (AST/SGOT) 105 U/L (15-37) Alanine Aminotransferase (ALT/SGPT) 48 U/L (14-59) Alkaline Phosphatase 135 U/L (46-116) Total Protein 5.1 g/dL (6.4-8.2) Albumin 1.9 g/dL (3.4-5.0) Albumin/Globulin Ratio 0.6 (1.0-1.7) Stool Occult Blood Negative (NEG) Laboratory Tests Test 09/19/18 14:00 09/20/18 04:53 Stool Occult Blood Negative (NEG) White Blood Count 5.7 x10^3/uL (4.0-11.0) Red Blood Count 3.54 x10^6/uL (3.50-5.40) Hemoglobin 11.0 g/dL (12.0-15.5) Hematocrit 33.9 % (36.0-47.0) Mean Corpuscular Volume 96 fL (79-100) Mean Corpuscular Hemoglobin 31 pg (25-35) Mean Corpuscular Hemoglobin Concent 33 g/dL (31-37) Red Cell Distribution Width 19.6 % (11.5-14.5) Platelet Count 201 x10^3/uL (140-400) Neutrophils (%) (Auto) 68 % (31-73) Lymphocytes (%) (Auto) 19 % (24-48) Monocytes (%) (Auto) 11 % (0-9) Eosinophils (%) (Auto) 2 % (0-3) Basophils (%) (Auto) 1 % (0-3) Neutrophils # (Auto) 3.9 x10^3uL (1.8-7.7) Lymphocytes # (Auto) 1.0 x10^3/uL (1.0-4.8) Monocytes # (Auto) 0.6 x10^3/uL (0.0-1.1) Eosinophils # (Auto) 0.1 x10^3/uL (0.0-0.7) Basophils # (Auto) 0.1 x10^3/uL (0.0-0.2) Sodium Level 140 mmol/L (136-145) Potassium Level 4.1 mmol/L (3.5-5.1) Chloride Level 105 mmol/L (98-107) Carbon Dioxide Level 28 mmol/L (21-32) Anion Gap 7 (6-14) Blood Urea Nitrogen 9 mg/dL (7-20) Creatinine 0.8 mg/dL (0.6-1.0) Estimated GFR (Cockcroft-Gault) 72.4 Glucose Level 97 mg/dL (70-99) Calcium Level 8.6 mg/dL (8.5-10.1) Microbiology 09/15/18 Blood Culture - Preliminary, Resulted NO GROWTH AFTER 4 DAYS 09/15/18 Urine Culture - Final, Complete 09/15/18 Urine Culture Result 1 (REMIGIO) - Final, Complete 09/15/18 Antimicrobic Susceptibility - Final, Complete Medications Current Medications Sodium Chloride 1,000 ml @ 1,000 mls/hr 1X ONCE IV Last administered on at 15:35; Start 09/15/18 at 15:30; Stop 09/15/18 at 16:29; Status DC Sodium Chloride 1,000 ml @ 1,000 mls/hr 1X ONCE IV Last administered on at 17:09; Start 09/15/18 at 17:00; Stop 09/15/18 at 17:59; Status DC Magnesium Oxide (Magnesium Oxide) 400 mg DAILY PO Last administered on at 08:43; Start 09/15/18 at 18:15 Potassium Chloride (Klor-Con) 40 meq 1X ONCE PO Last administered on at 18:50; Start 09/15/18 at 18:15; Stop 09/15/18 at 18:16; Status DC Ondansetron HCl (Zofran) 4 mg PRN Q8HRS PRN IV NAUSEA/VOMITING; Start 09/15/18 at 18:15; Stop 09/16/18 at 18:14; Status DC Acetaminophen (Tylenol) 650 mg PRN Q4HRS PRN PO FEVER; Start 09/15/18 at 18:15 ; Stop 09/16/18 at 18:14; Status DC Sodium Chloride 1,000 ml @ 1,000 mls/hr 1X ONCE IV Last administered on at 18:51; Start 09/15/18 at 18:45; Stop 09/15/18 at 19:44; Status DC Sodium Chloride 1,000 ml @ 150 mls/hr 1X ONCE IV Last administered on at 22:35; Start 09/15/18 at 18:45; Stop 09/16/18 at 01:24; Status DC Multivitamins 10 ml/Thiamine HCl 100 mg/Folic Acid 1 mg/Sodium Chloride 1,011.2 ml @ 100 mls/ hr DAILY IV Last administered on 09/18/18at 09:57; Start 09/16/18 at 09:00; Stop 09/18/18 at 22:00; Status DC Multivitamins (Thera M Plus) 1 tab DAILY PO Last administered on 09/16/18at 10: 05; Start 09/16/18 at 09:00; Stop 09/16/18 at 14:51; Status DC Folic Acid (Folic Acid) 1 mg DAILY PO Last administered on 09/16/18at 10:05; Start 09/16/18 at 09:00; Stop 09/16/18 at 14:53; Status DC Thiamine HCl 100 mg/Dextrose 51 ml @ 100 mls/hr DAILY IV ; Start 09/16/18 at 09 :00; Stop 09/20/18 at 09:31; Status Cancel Lorazepam (Ativan) 4 mg PRN Q1HR PRN PO For CIWA 8-14; Start 09/15/18 at 21:45 Lorazepam (Ativan) 8 mg PRN Q1HR PRN PO For CIWA 15 or greater; Start 09/15/18 at 21:45 Lorazepam (Ativan) 2 mg PRN Q1HR PRN IV For CIWA 8-14; Start 09/15/18 at 21:45 Lorazepam (Ativan) 4 mg PRN Q1HR PRN IV For CIWA 15 or greater; Start 09/15/18 at 21:45 Haloperidol Lactate (Haldol Inj) 5 mg PRN Q4HRS PRN IVP Hallucinatns,Confusn, Delirium; Start 09/15/18 at 21:45 Diphenhydramine HCl (Benadryl) 25 mg PRN Q15MIN PRN IVP EPS symptoms 2'Haldol admin; Start 09/15/18 at 21:45 Clonidine HCl (Catapres) 0.1 mg PRN Q1HR PRN PO SBP > 180 or DBP > 100, MRX3; Start 09/15/18 at 21:45 Lorazepam (Ativan) 2 mg PRN Q15MIN PRN IV ANXIETY / AGITATION; Start 09/15/18 at 21:45; Stop 09/18/18 at 15:45; Status DC Lorazepam (Ativan) 4 mg PRN Q15MIN PRN IV ANXIETY / AGITATION; Start 09/15/18 at 21:45; Stop 09/18/18 at 15:45; Status DC Ceftriaxone Sodium (Rocephin) 2 gm Q24H IVP Last administered on 09/19/18at 21:48 ; Start 09/15/18 at 22:00 Potassium Chloride (Klor-Con) 40 meq 1X ONCE PO ; Start 09/15/18 at 22:00; Stop 09/16/18 at 04:14; Status DC Potassium Chloride (Klor-Con) 20 meq DAILYWBKFT PO Last administered on at 08:44; Start 09/16/18 at 08:00 Sodium Chloride 1,500 ml @ 1,500 mls/hr Q1H IV ; Start 09/15/18 at 21:44; Stop 09/15/18 at 22:44; Status DC Sodium Chloride 500 ml @ 1,000 mls/hr PRN Q30MIN PRN IV SEE COMMENTS; Start at 21:45 Norepinephrine Bitartrate 250 ml @ 0 mls/hr CONT PRN IV SEE I/O RECORD Last administered on 09/16/18at 06:44; Start 09/15/18 at 21:45; Stop 09/18/18 at 05:14 ; Status DC Dobutamine HCl/ Dextrose 250 ml @ 0 mls/hr CONT PRN IV SEE I/O RECORD; Start at 21:45; Stop 09/18/18 at 05:12; Status DC Magnesium Sulfate/ Dextrose 100 ml @ 100 mls/hr 1X ONCE IV Last administered on 09/15/18at 22:22; Start 09/15/18 at 22:00; Stop 09/15/18 at 22:59; Status DC Potassium Chloride (Klor-Con) 70 meq 1X ONCE PO Last administered on at 04:36; Start 09/16/18 at 04:30; Stop 09/16/18 at 04:31; Status DC Vancomycin HCl (Vanco Per Pharmacy) 1 each PRN DAILY PRN MC SEE COMMENTS; Start 09/16/18 at 07:15; Stop 09/16/18 at 08:27; Status DC Vancomycin HCl 1.5 gm/Sodium Chloride 500 ml @ 250 mls/hr 1X ONCE IV ; Start 09/16/18 at 08:00; Stop 09/16/18 at 09:59; Status Cancel Lactobacillus Rhamnosus (Culturelle) 1 cap BID PO Last administered on at 08:43; Start 09/16/18 at 09:00 Lorazepam (Ativan) 1 mg PRN Q6HRS PRN PO ANXIETY / AGITATION; Start 09/16/18 at 08:30 Magnesium Sulfate 50 ml @ 25 mls/hr 1X ONCE IV Last administered on 09/16/18at 15:16; Start 09/16/18 at 10:15; Stop 09/16/18 at 12:14; Status DC Multivitamins (Thera M Plus) 1 tab DAILY PO Last administered on 09/20/18at 08:43 ; Start 09/19/18 at 09:00 Folic Acid (Folic Acid) 1 mg DAILY PO Last administered on 09/20/18at 08:43; Start 09/19/18 at 09:00 Magnesium Sulfate 50 ml @ 25 mls/hr 1X ONCE IV ; Start 09/16/18 at 16:00; Stop 09/16/18 at 17:59; Status Cancel Info (FLU VACCINE SCREEN per RX) 1 each PRN 1X PRN MC SEE COMMENTS; Start 09/17 at 09:15; Status UNV Influenza Virus Vaccine (Afluria Trivalent 2534-0153 Syringe) 0.5 ml ONCE ONCE VAX IM Last administered on 09/17/18at 11:57; Start 09/17/18 at 12:00; Stop at 12:01; Status DC Magnesium Sulfate 50 ml @ 25 mls/hr 1X ONCE IV Last administered on 09/17/18at 10:54; Start 09/17/18 at 11:00; Stop 09/17/18 at 12:59; Status DC Duloxetine HCl (Cymbalta) 60 mg DAILY PO Last administered on 09/20/18 08:44; Start 09/17/18 at 16:00 Mirtazapine (Remeron) 30 mg QHS PO Last administered on 09/19/18 20:48; Start 09/17/18 at 21:00 Pantoprazole Sodium (Protonix) 40 mg DAILYAC PO Last administered on 09/19/18 08:47; Start 09/17/18 at 16:00; Stop 09/19/18 at 11:23; Status DC Acetaminophen (Tylenol) 650 mg PRN Q4HRS PRN PO HEADACHE Last administered on 08:43; Start 09/17/18 at 21:45 Thiamine Mononitrate (Vitamin B-1) 100 mg DAILY PO Last administered on 08:43; Start 09/19/18 at 09:00 Sodium Chloride 1,000 ml @ 1,000 mls/hr 1X ONCE IV Last administered on 12:00; Start 09/18/18 at 11:00; Stop 09/18/18 at 11:59; Status DC Pantoprazole Sodium (PROTONIX VIAL for IV PUSH) 40 mg DAILYAC IVP Last administered on 09/20/18 08:44; Start 09/20/18 at 07:30 Furosemide (Lasix) 60 mg 1X ONCE IVP Last administered on 09/20/18 10:23; Start 09/20/18 at 10:15; Stop 09/20/18 at 10:16; Status DC Active Scripts Active Reported Protonix (Pantoprazole Sodium) 20 Mg Tablet. 2 Tab PO DAILY Mirtazapine 30 Mg Tablet 1 Tab PO QHS Furosemide 40 Mg Tablet 1 Tab PO DAILY Duloxetine Hcl 60 Mg Capsule.dr 60 Mg PO DAILY Carvedilol 25 Mg Tablet 25 Mg PO BIDWMEALS Amlodipine Besylate 5 Mg Tablet 5 Mg PO DAILY Vitals/I & O Vital Sign - Last 24 Hours 09/19/18 09/19/18 09/19/18 09/19/18 16:00 20:00 20:23 23:30 Temp 98.8 98.4 98.1 98.8 98.4 98.1 Pulse 116 116 118 Resp 20 20 20 B/P (MAP) 133/84 (100) 132/77 (95) 125/79 (94) Pulse Ox 96 94 97 O2 Delivery Room Air Room Air Room Air Room Air 09/20/18 09/20/18 09/20/18 09/20/18 04:30 08:00 08:01 11:48 Temp 98.0 98.0 98.3 98.0 98.0 98.3 Pulse 81 109 92 Resp 19 B/P (MAP) 157/62 (93) 147/91 (109) 127/77 (94) Pulse Ox 98 98 97 O2 Delivery Room Air Room Air Room Air Room Air Intake and Output 09/19/18 09/19/18 09/20/18 15:00 23:00 07:00 Intake Total 534 ml 360 ml 500 ml Balance 534 ml 360 ml 500 ml JEFERSON SPRINGER MD Sep 20, 2018 12:31
--- NOTE | 2018-09-20 15:54 | RAD ---
Chest, PA and Lateral: Technique: PA and lateral views of the chest were obtained. History: Increasing wheezing, edema. Comparison: 09/15/2018. Findings: The heart and pulmonary vasculature appear within normal limits. The lungs are clear. The pleural margins are clear. Calcified granuloma left midlung zone. Impression: No acute chest process is seen. Electronically signed by: Yamil Cárdenas MD (09/20/2018 3:52 PM) [facility]
[2018-09-20 16:08] VITALS: BP 130/80
[2018-09-20 19:15] VITALS: BP 112/65
[2018-09-20] MEDS: MIRTAZAPINE 15 MG TABLET PO SCH (21:28)
[2018-09-20] MEDS: cefTRIAXone IV Push 2 GM VIAL. IVP SCH (21:28)
[2018-09-20 23:20] VITALS: BP 124/79
[2018-09-21] MEDS: ACETAMINOPHEN 325 MG TABLET. PO PRN ×3 (02:58→20:17)
[2018-09-21 03:20] VITALS: BP 132/66
[2018-09-21 04:16] LABS: BASO # 0.1 x10^3/uL (0.0-0.2); BASO % 1 % (0-3); EOS # 0.1 x10^3/uL (0.0-0.7); EOS % 3 % (0-3); HEMATOCRIT 31.5 % (36.0-47.0); HEMOGLOBIN 10.2 g/dL (12.0-15.5); LYMPH % 20 % (24-48); MEAN CORPUSCULAR HEMOGLOBIN 31 pg (25-35); MEAN CORPUSCULAR HGB CONC 32 g/dL (31-37); MEAN CORPUSCULAR VOLUME 96 fL (79-100); MONO # 0.6 x10^3/uL (0.0-1.1); MONO % 12 % (0-9); NEUT # 3.1 x10^3uL (1.8-7.7); NEUT % 64 % (31-73); PLATELET COUNT 212 x10^3/uL (140-400); RED BLOOD COUNT 3.29 x10^6/uL (3.50-5.40); RED CELL DISTRIBUTION WIDTH 19.9 % (11.5-14.5); WHITE BLOOD COUNT 4.8 x10^3/uL (4.0-11.0)
[2018-09-21 05:12] LABS: ALBUMIN 2.1 g/dL (3.4-5.0); ALBUMIN/GLOBULIN RATIO 0.6 (1.0-1.7); CALCIUM 8.5 mg/dL (8.5-10.1); CREATININE 0.8 mg/dL (0.6-1.0); GFR 72.4; POTASSIUM 3.8 mmol/L (3.5-5.1); TOTAL BILIRUBIN 0.8 mg/dL (0.2-1.0); TOTAL PROTEIN 5.9 g/dL (6.4-8.2)
[2018-09-21 07:00] VITALS: BP 164/93
[2018-09-21] MEDS: MAGNESIUM OXIDE 400 MG TABLET PO SCH (08:02)
[2018-09-21] MEDS: THIAMINE 100 MG TABLET. PO SCH (08:03)
[2018-09-21] MEDS: POTASSIUM CHLORIDE 20 MEQ TABLET.ER. PO SCH (08:03)
[2018-09-21] MEDS: MULTIVITAMIN with MINERAL TABLET. PO SCH (08:03)
[2018-09-21] MEDS: FOLIC ACID 1 MG TABLET. PO SCH (08:03)
[2018-09-21] MEDS: PANTOPRAZOLE IV PUSH 40 MG VIAL. IVP SCH (08:04)
[2018-09-21] MEDS: DULoxetine HCL 30 MG CAPSULE.DR PO SCH (09:44)
[2018-09-21] MEDS: LACTOBACILLUS RHAMNOSUS GG 1 CAPSULE. PO SCH ×2 (09:45→20:17)
--- NOTE | 2018-09-21 09:57 | PDOC ---
PROGRESS NOTES Chief Complaint Chief Complaint 1. MULTIPLE FALLS etiology multifactorial 2. grade 1 anterolisthesis of C4-5 which is new since the previous study. This is secondary to degenerative facet arthropathy. 3. Alcohol abuse, SEVERE 4. depression 5. hypotension sec to hypovolemia resolved 6. uti, E COLI SEN TO ROCEPHIN, AUGMENTIN chg to po augmentin 7. chest discomfort 8. SINUS TACH DUE TO ETOH WITHDRAWAL 3/2 9. 2 GM DROP IN HGB 3/2 hgb now 10.0 10. severe protein-caloric malnutrition 3/3 tachy earlier likely from etoh withdrawal cxr mild vascular congestion gave 60 mg iv lasix x 1 3/4 add coreg, iv lasix bid x 48 hrs plan: alcohol withdrawal precautions patient iv rocephin for UTI follow blood cultures OCCULT STOOLS DIETARY SUPPLEMENTS GI CONSULT PLAN 1. Hold norvasc and coreg till BP is consistently adequate. 2. Replace K and Mg per level. 3. Supportive care 4. ETOH withdrawal protocol 5. Orthostatic readings 6. Reinforced compliance and curbing ETOH. 7. IV PROTONIX 8. heme test stools 9. 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 heart healthy diet and adequate protein intake, alcohol abstinence Vitals Vitals Vital Signs Date Time Temp Pulse Resp B/P (MAP) Pulse Ox O2 Delivery O2 Flow Rate FiO2 09/21/18 07:00 98.9 115 20 164/93 (116) 100 Room Air 98.9 Physical Exam General: Alert, Oriented X3, Cooperative, No acute distress Heart: Regular rate ( TACHY), Normal S1, Normal S2, No murmurs Lungs: Clear Abdomen: Normal bowel sounds, Soft, No tenderness Extremities: No clubbing, No cyanosis, No edema (1 PLUS THORACIC ANASARCA) Skin: No breakdown, No significant lesion Labs LABS Laboratory Tests Test 09/21/18 03:30 White Blood Count 4.8 x10^3/uL (4.0-11.0) Red Blood Count 3.29 x10^6/uL (3.50-5.40) Hemoglobin 10.2 g/dL (12.0-15.5) Hematocrit 31.5 % (36.0-47.0) Mean Corpuscular Volume 96 fL (79-100) Mean Corpuscular Hemoglobin 31 pg (25-35) Mean Corpuscular Hemoglobin Concent 32 g/dL (31-37) Red Cell Distribution Width 19.9 % (11.5-14.5) Platelet Count 212 x10^3/uL (140-400) Neutrophils (%) (Auto) 64 % (31-73) Lymphocytes (%) (Auto) 20 % (24-48) Monocytes (%) (Auto) 12 % (0-9) Eosinophils (%) (Auto) 3 % (0-3) Basophils (%) (Auto) 1 % (0-3) Neutrophils # (Auto) 3.1 x10^3uL (1.8-7.7) Lymphocytes # (Auto) 1.0 x10^3/uL (1.0-4.8) Monocytes # (Auto) 0.6 x10^3/uL (0.0-1.1) Eosinophils # (Auto) 0.1 x10^3/uL (0.0-0.7) Basophils # (Auto) 0.1 x10^3/uL (0.0-0.2) Sodium Level 140 mmol/L (136-145) Potassium Level 3.8 mmol/L (3.5-5.1) Chloride Level 102 mmol/L (98-107) Carbon Dioxide Level 29 mmol/L (21-32) Anion Gap 9 (6-14) Blood Urea Nitrogen 10 mg/dL (7-20) Creatinine 0.8 mg/dL (0.6-1.0) Estimated GFR (Cockcroft-Gault) 72.4 BUN/Creatinine Ratio 13 (6-20) Glucose Level 105 mg/dL (70-99) Calcium Level 8.5 mg/dL (8.5-10.1) Total Bilirubin 0.8 mg/dL (0.2-1.0) Aspartate Amino Transf (AST/SGOT) 78 U/L (15-37) Alanine Aminotransferase (ALT/SGPT) 47 U/L (14-59) Alkaline Phosphatase 156 U/L (46-116) Total Protein 5.9 g/dL (6.4-8.2) Albumin 2.1 g/dL (3.4-5.0) Albumin/Globulin Ratio 0.6 (1.0-1.7) Assessment and Plan Assessmemt and Plan Problems Medical Problems: (1) Chest pain Status: Acute (2) Fall Status: Acute (3) Shortness of breath Status: Acute Comment Review of Relevant I have reviewed the following items balbir (where applicable) has been applied. Labs Laboratory Tests Test 09/19/18 14:00 09/20/18 04:53 09/21/18 03:30 Stool Occult Blood Negative (NEG) White Blood Count 5.7 x10^3/uL (4.0-11.0) 4.8 x10^3/uL (4.0-11.0) Red Blood Count 3.54 x10^6/uL (3.50-5.40) 3.29 x10^6/uL (3.50-5.40) Hemoglobin 11.0 g/dL (12.0-15.5) 10.2 g/dL (12.0-15.5) Hematocrit 33.9 % (36.0-47.0) 31.5 % (36.0-47.0) Mean Corpuscular Volume 96 fL (79-100) 96 fL (79-100) Mean Corpuscular Hemoglobin 31 pg (25-35) 31 pg (25-35) Mean Corpuscular Hemoglobin Concent 33 g/dL (31-37) 32 g/dL (31-37) Red Cell Distribution Width 19.6 % (11.5-14.5) 19.9 % (11.5-14.5) Platelet Count 201 x10^3/uL (140-400) 212 x10^3/uL (140-400) Neutrophils (%) (Auto) 68 % (31-73) 64 % (31-73) Lymphocytes (%) (Auto) 19 % (24-48) 20 % (24-48) Monocytes (%) (Auto) 11 % (0-9) 12 % (0-9) Eosinophils (%) (Auto) 2 % (0-3) 3 % (0-3) Basophils (%) (Auto) 1 % (0-3) 1 % (0-3) Neutrophils # (Auto) 3.9 x10^3uL (1.8-7.7) 3.1 x10^3uL (1.8-7.7) Lymphocytes # (Auto) 1.0 x10^3/uL (1.0-4.8) 1.0 x10^3/uL (1.0-4.8) Monocytes # (Auto) 0.6 x10^3/uL (0.0-1.1) 0.6 x10^3/uL (0.0-1.1) Eosinophils # (Auto) 0.1 x10^3/uL (0.0-0.7) 0.1 x10^3/uL (0.0-0.7) Basophils # (Auto) 0.1 x10^3/uL (0.0-0.2) 0.1 x10^3/uL (0.0-0.2) Sodium Level 140 mmol/L (136-145) 140 mmol/L (136-145) Potassium Level 4.1 mmol/L (3.5-5.1) 3.8 mmol/L (3.5-5.1) Chloride Level 105 mmol/L (98-107) 102 mmol/L (98-107) Carbon Dioxide Level 28 mmol/L (21-32) 29 mmol/L (21-32) Anion Gap 7 (6-14) 9 (6-14) Blood Urea Nitrogen 9 mg/dL (7-20) 10 mg/dL (7-20) Creatinine 0.8 mg/dL (0.6-1.0) 0.8 mg/dL (0.6-1.0) Estimated GFR (Cockcroft-Gault) 72.4 72.4 Glucose Level 97 mg/dL (70-99) 105 mg/dL (70-99) Calcium Level 8.6 mg/dL (8.5-10.1) 8.5 mg/dL (8.5-10.1) BUN/Creatinine Ratio 13 (6-20) Total Bilirubin 0.8 mg/dL (0.2-1.0) Aspartate Amino Transf (AST/SGOT) 78 U/L (15-37) Alanine Aminotransferase (ALT/SGPT) 47 U/L (14-59) Alkaline Phosphatase 156 U/L (46-116) Total Protein 5.9 g/dL (6.4-8.2) Albumin 2.1 g/dL (3.4-5.0) Albumin/Globulin Ratio 0.6 (1.0-1.7) Laboratory Tests Test 09/21/18 03:30 White Blood Count 4.8 x10^3/uL (4.0-11.0) Red Blood Count 3.29 x10^6/uL (3.50-5.40) Hemoglobin 10.2 g/dL (12.0-15.5) Hematocrit 31.5 % (36.0-47.0) Mean Corpuscular Volume 96 fL (79-100) Mean Corpuscular Hemoglobin 31 pg (25-35) Mean Corpuscular Hemoglobin Concent 32 g/dL (31-37) Red Cell Distribution Width 19.9 % (11.5-14.5) Platelet Count 212 x10^3/uL (140-400) Neutrophils (%) (Auto) 64 % (31-73) Lymphocytes (%) (Auto) 20 % (24-48) Monocytes (%) (Auto) 12 % (0-9) Eosinophils (%) (Auto) 3 % (0-3) Basophils (%) (Auto) 1 % (0-3) Neutrophils # (Auto) 3.1 x10^3uL (1.8-7.7) Lymphocytes # (Auto) 1.0 x10^3/uL (1.0-4.8) Monocytes # (Auto) 0.6 x10^3/uL (0.0-1.1) Eosinophils # (Auto) 0.1 x10^3/uL (0.0-0.7) Basophils # (Auto) 0.1 x10^3/uL (0.0-0.2) Sodium Level 140 mmol/L (136-145) Potassium Level 3.8 mmol/L (3.5-5.1) Chloride Level 102 mmol/L (98-107) Carbon Dioxide Level 29 mmol/L (21-32) Anion Gap 9 (6-14) Blood Urea Nitrogen 10 mg/dL (7-20) Creatinine 0.8 mg/dL (0.6-1.0) Estimated GFR (Cockcroft-Gault) 72.4 BUN/Creatinine Ratio 13 (6-20) Glucose Level 105 mg/dL (70-99) Calcium Level 8.5 mg/dL (8.5-10.1) Total Bilirubin 0.8 mg/dL (0.2-1.0) Aspartate Amino Transf (AST/SGOT) 78 U/L (15-37) Alanine Aminotransferase (ALT/SGPT) 47 U/L (14-59) Alkaline Phosphatase 156 U/L (46-116) Total Protein 5.9 g/dL (6.4-8.2) Albumin 2.1 g/dL (3.4-5.0) Albumin/Globulin Ratio 0.6 (1.0-1.7) Microbiology 09/15/18 Blood Culture - Final, Complete NO GROWTH AFTER 5 DAYS 09/15/18 Urine Culture - Final, Complete 09/15/18 Urine Culture Result 1 (REMIGIO) - Final, Complete 09/15/18 Antimicrobic Susceptibility - Final, Complete Medications Current Medications Sodium Chloride 1,000 ml @ 1,000 mls/hr 1X ONCE IV Last administered on at 15:35; Start 09/15/18 at 15:30; Stop 09/15/18 at 16:29; Status DC Sodium Chloride 1,000 ml @ 1,000 mls/hr 1X ONCE IV Last administered on at 17:09; Start 09/15/18 at 17:00; Stop 09/15/18 at 17:59; Status DC Magnesium Oxide (Magnesium Oxide) 400 mg DAILY PO Last administered on at 08:02; Start 09/15/18 at 18:15 Potassium Chloride (Klor-Con) 40 meq 1X ONCE PO Last administered on at 18:50; Start 09/15/18 at 18:15; Stop 09/15/18 at 18:16; Status DC Ondansetron HCl (Zofran) 4 mg PRN Q8HRS PRN IV NAUSEA/VOMITING; Start 09/15/18 at 18:15; Stop 09/16/18 at 18:14; Status DC Acetaminophen (Tylenol) 650 mg PRN Q4HRS PRN PO FEVER; Start 09/15/18 at 18:15 ; Stop 09/16/18 at 18:14; Status DC Sodium Chloride 1,000 ml @ 1,000 mls/hr 1X ONCE IV Last administered on at 18:51; Start 09/15/18 at 18:45; Stop 09/15/18 at 19:44; Status DC Sodium Chloride 1,000 ml @ 150 mls/hr 1X ONCE IV Last administered on at 22:35; Start 09/15/18 at 18:45; Stop 09/16/18 at 01:24; Status DC Multivitamins 10 ml/Thiamine HCl 100 mg/Folic Acid 1 mg/Sodium Chloride 1,011.2 ml @ 100 mls/ hr DAILY IV Last administered on 09/18/18at 09:57; Start 09/16/18 at 09:00; Stop 09/18/18 at 22:00; Status DC Multivitamins (Thera M Plus) 1 tab DAILY PO Last administered on 09/16/18at 10: 05; Start 09/16/18 at 09:00; Stop 09/16/18 at 14:51; Status DC Folic Acid (Folic Acid) 1 mg DAILY PO Last administered on 09/16/18at 10:05; Start 09/16/18 at 09:00; Stop 09/16/18 at 14:53; Status DC Thiamine HCl 100 mg/Dextrose 51 ml @ 100 mls/hr DAILY IV ; Start 09/16/18 at 09 :00; Stop 09/20/18 at 09:31; Status Cancel Lorazepam (Ativan) 4 mg PRN Q1HR PRN PO For CIWA 8-14; Start 09/15/18 at 21:45 Lorazepam (Ativan) 8 mg PRN Q1HR PRN PO For CIWA 15 or greater; Start 09/15/18 at 21:45 Lorazepam (Ativan) 2 mg PRN Q1HR PRN IV For CIWA 8-14; Start 09/15/18 at 21:45 Lorazepam (Ativan) 4 mg PRN Q1HR PRN IV For CIWA 15 or greater; Start 09/15/18 at 21:45 Haloperidol Lactate (Haldol Inj) 5 mg PRN Q4HRS PRN IVP Hallucinatns,Confusn, Delirium; Start 09/15/18 at 21:45 Diphenhydramine HCl (Benadryl) 25 mg PRN Q15MIN PRN IVP EPS symptoms 2'Haldol admin; Start 09/15/18 at 21:45 Clonidine HCl (Catapres) 0.1 mg PRN Q1HR PRN PO SBP > 180 or DBP > 100, MRX3; Start 09/15/18 at 21:45 Lorazepam (Ativan) 2 mg PRN Q15MIN PRN IV ANXIETY / AGITATION; Start 09/15/18 at 21:45; Stop 09/18/18 at 15:45; Status DC Lorazepam (Ativan) 4 mg PRN Q15MIN PRN IV ANXIETY / AGITATION; Start 09/15/18 at 21:45; Stop 09/18/18 at 15:45; Status DC Ceftriaxone Sodium (Rocephin) 2 gm Q24H IVP Last administered on 09/20/18at 21:28 ; Start 09/15/18 at 22:00 Potassium Chloride (Klor-Con) 40 meq 1X ONCE PO ; Start 09/15/18 at 22:00; Stop 09/16/18 at 04:14; Status DC Potassium Chloride (Klor-Con) 20 meq [id number] PO Last administered on at 08:03; Start 09/16/18 at 08:00 Sodium Chloride 1,500 ml @ 1,500 mls/hr Q1H IV ; Start 09/15/18 at 21:44; Stop 09/15/18 at 22:44; Status DC Sodium Chloride 500 ml @ 1,000 mls/hr PRN Q30MIN PRN IV SEE COMMENTS; Start at 21:45 Norepinephrine Bitartrate 250 ml @ 0 mls/hr CONT PRN IV SEE I/O RECORD Last administered on 09/16/18at 06:44; Start 09/15/18 at 21:45; Stop 09/18/18 at 05:14 ; Status DC Dobutamine HCl/ Dextrose 250 ml @ 0 mls/hr CONT PRN IV SEE I/O RECORD; Start at 21:45; Stop 09/18/18 at 05:12; Status DC Magnesium Sulfate/ Dextrose 100 ml @ 100 mls/hr 1X ONCE IV Last administered on 09/15/18at 22:22; Start 09/15/18 at 22:00; Stop 09/15/18 at 22:59; Status DC Potassium Chloride (Klor-Con) 70 meq 1X ONCE PO Last administered on at 04:36; Start 09/16/18 at 04:30; Stop 09/16/18 at 04:31; Status DC Vancomycin HCl (Vanco Per Pharmacy) 1 each PRN DAILY PRN MC SEE COMMENTS; Start 09/16/18 at 07:15; Stop 09/16/18 at 08:27; Status DC Vancomycin HCl 1.5 gm/Sodium Chloride 500 ml @ 250 mls/hr 1X ONCE IV ; Start 09/16/18 at 08:00; Stop 09/16/18 at 09:59; Status Cancel Lactobacillus Rhamnosus (Culturelle) 1 cap BID PO Last administered on at 09:45; Start 09/16/18 at 09:00 Lorazepam (Ativan) 1 mg PRN Q6HRS PRN PO ANXIETY / AGITATION; Start 09/16/18 at 08:30 Magnesium Sulfate 50 ml @ 25 mls/hr 1X ONCE IV Last administered on 09/16/18at 15:16; Start 09/16/18 at 10:15; Stop 09/16/18 at 12:14; Status DC Multivitamins (Thera M Plus) 1 tab DAILY PO Last administered on 09/21/18at 08:03 ; Start 09/19/18 at 09:00 Folic Acid (Folic Acid) 1 mg DAILY PO Last administered on 09/21/18at 08:03; Start 09/19/18 at 09:00 Magnesium Sulfate 50 ml @ 25 mls/hr 1X ONCE IV ; Start 09/16/18 at 16:00; Stop 09/16/18 at 17:59; Status Cancel Info (FLU VACCINE SCREEN per RX) 1 each PRN 1X PRN MC SEE COMMENTS; Start 09/17 at 09:15; Status UNV Influenza Virus Vaccine (Afluria Trivalent [id number] Syringe) 0.5 ml ONCE ONCE VAX IM Last administered on 09/17/18at 11:57; Start 09/17/18 at 12:00; Stop at 12:01; Status DC Magnesium Sulfate 50 ml @ 25 mls/hr 1X ONCE IV Last administered on 09/17/18 10:54; Start 09/17/18 at 11:00; Stop 09/17/18 at 12:59; Status DC Duloxetine HCl (Cymbalta) 60 mg DAILY PO Last administered on 09/21/18 09:44; Start 09/17/18 at 16:00 Mirtazapine (Remeron) 30 mg QHS PO Last administered on 09/20/18 21:28; Start 09/17/18 at 21:00 Pantoprazole Sodium (Protonix) 40 mg DAILYAC PO Last administered on 09/19/18 08:47; Start 09/17/18 at 16:00; Stop 09/19/18 at 11:23; Status DC Acetaminophen (Tylenol) 650 mg PRN Q4HRS PRN PO HEADACHE Last administered on 08:03; Start 09/17/18 at 21:45 Thiamine Mononitrate (Vitamin B-1) 100 mg DAILY PO Last administered on 08:03; Start 09/19/18 at 09:00 Sodium Chloride 1,000 ml @ 1,000 mls/hr 1X ONCE IV Last administered on 12:00; Start 09/18/18 at 11:00; Stop 09/18/18 at 11:59; Status DC Pantoprazole Sodium (PROTONIX VIAL for IV PUSH) 40 mg DAILYAC IVP Last administered on 09/21/18 08:04; Start 09/20/18 at 07:30 Furosemide (Lasix) 60 mg 1X ONCE IVP Last administered on 09/20/18 10:23; Start 09/20/18 at 10:15; Stop 09/20/18 at 10:16; Status DC Active Scripts Active Reported Protonix (Pantoprazole Sodium) 20 Mg Tablet.dr 2 Tab PO DAILY Mirtazapine 30 Mg Tablet 1 Tab PO QHS Furosemide 40 Mg Tablet 1 Tab PO DAILY Duloxetine Hcl 60 Mg Capsule.dr 60 Mg PO DAILY Carvedilol 25 Mg Tablet 25 Mg PO BIDWMEALS Amlodipine Besylate 5 Mg Tablet 5 Mg PO DAILY Vitals/I & O Vital Sign - Last 24 Hours 3/3/19 3/3/19 3/3/19 3/3/19 11:48 16:08 19:15 20:00 Temp 98.3 98.0 98.2 98.3 98.0 98.2 Pulse 92 102 114 Resp 18 B/P (MAP) 127/77 (94) 130/80 (97) 112/65 (81) Pulse Ox 97 98 97 O2 Delivery Room Air Room Air Room Air Room Air 09/20/18 09/21/18 09/21/18 23:20 03:20 07:00 Temp 98.6 98.3 98.9 98.6 98.3 98.9 Pulse 111 117 115 Resp 20 B/P (MAP) 124/79 (94) 132/66 (88) 164/93 (116) Pulse Ox 97 99 100 O2 Delivery Room Air Room Air Room Air Intake and Output 09/20/18 09/20/18 09/21/18 15:00 23:00 07:00 Intake Total 520 ml 500 ml 550 ml Balance 520 ml 500 ml 550 ml JEFERSON SPRINGER MD Sep 21, 2018 09:57
[2018-09-21 11:00] VITALS: BP 141/80
[2018-09-21] MEDS ORDERED: AMOXICILLIN/K CLAV 500/125MG TABLET. PO SCH (12:00)
--- NOTE | 2018-09-21 12:01 | PDOC ---
Subjective: Subjective: Feels really bloated and uncomfortable. Tolerating PO, no stooling complaints. Objective: Vital Signs: Vital Signs Date Time Temp Pulse Resp B/P (MAP) Pulse Ox O2 Delivery O2 Flow Rate FiO2 09/21/18 11:00 98.1 109 20 141/80 (100) 96 Room Air 98.1 Labs: Laboratory Tests Test 09/21/18 03:30 White Blood Count 4.8 x10^3/uL Red Blood Count 3.29 x10^6/uL Hemoglobin 10.2 g/dL Hematocrit 31.5 % Mean Corpuscular Volume 96 fL Mean Corpuscular Hemoglobin 31 pg Mean Corpuscular Hemoglobin Concent 32 g/dL Red Cell Distribution Width 19.9 % Platelet Count 212 x10^3/uL Neutrophils (%) (Auto) 64 % Lymphocytes (%) (Auto) 20 % Monocytes (%) (Auto) 12 % Eosinophils (%) (Auto) 3 % Basophils (%) (Auto) 1 % Neutrophils # (Auto) 3.1 x10^3uL Lymphocytes # (Auto) 1.0 x10^3/uL Monocytes # (Auto) 0.6 x10^3/uL Eosinophils # (Auto) 0.1 x10^3/uL Basophils # (Auto) 0.1 x10^3/uL Sodium Level 140 mmol/L Potassium Level 3.8 mmol/L Chloride Level 102 mmol/L Carbon Dioxide Level 29 mmol/L Anion Gap 9 Blood Urea Nitrogen 10 mg/dL Creatinine 0.8 mg/dL Estimated GFR (Cockcroft-Gault) 72.4 BUN/Creatinine Ratio 13 Glucose Level 105 mg/dL Calcium Level 8.5 mg/dL Total Bilirubin 0.8 mg/dL Aspartate Amino Transf (AST/SGOT) 78 U/L Alanine Aminotransferase (ALT/SGPT) 47 U/L Alkaline Phosphatase 156 U/L Total Protein 5.9 g/dL Albumin 2.1 g/dL Albumin/Globulin Ratio 0.6 PE: GEN: NAD LUNGS: CTAB HEART: tachycardic ABD: distended, not uncomfortable, BS+ EXTREMITY: BLE edema NEURO/PSYCH: A & O 3 A/P: Falls Bloating, edema Anemia, fecal occult neg Elevated ALT and Alk Phos, h/o alcohol CRC screen - UTD -- Will check labs and imaging as recommended in Dr. Emery's note from yesterday. Doesn't need IV PPI. She is interested in outpt EGD. EDELMIRA THOMAS Sep 21, 2018 12:01
--- NOTE | 2018-09-21 12:04 | NUR ---
SW following pt. Pt was evaluated by PT and does not have skilled needs. Spoke with RN, pt not ready to dc today. RN reported pt 'has fluid overload'. No SW needs indicated at this time. Will continue to follow.
[2018-09-21] MEDS: CARVEDILOL 6.25 MG TABLET. PO SCH ×2 (13:27→17:31)
[2018-09-21] MEDS: CIPROFLOXACIN HCL 250 MG TABLET. PO SCH ×2 (13:27→20:17)
[2018-09-21] MEDS: FUROSEMIDE 40 MG/4 ML VIAL. IVP SCH (14:43)
[2018-09-21 15:00] VITALS: BP 128/78
[2018-09-21 19:43] VITALS: BP 109/67
[2018-09-21] MEDS: MIRTAZAPINE 15 MG TABLET PO SCH (20:17)
[2018-09-21 23:30] VITALS: BP 94/56
[2018-09-22 03:44] VITALS: BP 119/70
[2018-09-22 07:00] VITALS: BP 144/87
--- NOTE | 2018-09-22 07:08 | NUR ---
Pt states more swelling noted in her abdomen and upper thighs. Pt encouraged to elevate extremities to help with edema relief. Pt verbalize understanding.
--- NOTE | 2018-09-22 07:52 | RAD ---
CLINICAL HISTORY: ABD BLOATING EDEMA COMPARISON: None available. TECHNIQUE: Ultrasound of the upper abdomen was performed. FINDINGS: The liver measures 19 cm in length in the right mid clavicular line. The hepatic margin is smooth. The hepatic echogenicity is increased, suggesting fatty liver. There are no focal liver lesions. Flow is identified in the hepatic veins and portal veins with normal waveforms. The gallbladder is mildly decompressed but otherwise normal in appearance without evidence for cholelithiasis. There is no wall thickening or pericholecystic fluid. There is no pain with direct transducer pressure over the gallbladder. The common bile duct measures 0.3 cm. The spleen is normal in size. It measures 9.7 cm in length. The majority of the pancreas is obscured by overlying bowel gas.. The right kidney measures 10.3 cm in bipolar length. Right lower pole renal cystic lesion measures 3.3 cm with enhanced through transmission. Mild renal cortical thinning may suggest changes from chronic renal disease. The left kidney measures 10.9 cm in bipolar length. Mild left renal cortical thinning, may be seen with chronic renal disease. No focal renal lesion or hydronephrosis. The majority of the aorta and IVC are obscured by overlying bowel gas. However the visualized portions of the abdominal aorta and inferior vena cava are unremarkable. There is no free fluid in the upper abdomen. IMPRESSION: 1. No cholelithiasis 2. No sonographic evidence for acute cholecystitis. 3. Hepatomegaly and hepatic steatosis 4. Right lower pole renal cystic lesion is seen. Electronically signed by: Jesus Centeno MD (09/22/2018 7:49 AM) [facility]
[2018-09-22] MEDS: FOLIC ACID 1 MG TABLET. PO SCH (08:25)
[2018-09-22] MEDS: CIPROFLOXACIN HCL 250 MG TABLET. PO SCH ×2 (08:26→21:46)
[2018-09-22] MEDS: THIAMINE 100 MG TABLET. PO SCH (08:26)
[2018-09-22] MEDS: MAGNESIUM OXIDE 400 MG TABLET PO SCH (08:26)
[2018-09-22] MEDS: LACTOBACILLUS RHAMNOSUS GG 1 CAPSULE. PO SCH ×2 (08:26→21:46)
[2018-09-22] MEDS: MULTIVITAMIN with MINERAL TABLET. PO SCH (08:26)
[2018-09-22] MEDS: CARVEDILOL 6.25 MG TABLET. PO SCH ×2 (08:27→17:29)
[2018-09-22] MEDS: POTASSIUM CHLORIDE 20 MEQ TABLET.ER. PO SCH (08:28)
[2018-09-22] MEDS: DULoxetine HCL 30 MG CAPSULE.DR PO SCH (08:28)
[2018-09-22] MEDS: FUROSEMIDE 40 MG/4 ML VIAL. IVP SCH (08:29)
[2018-09-22] MEDS: PANTOPRAZOLE 40 MG TABLET.DR. PO SCH (08:30)
[2018-09-22] MEDS: ACETAMINOPHEN 325 MG TABLET. PO PRN ×3 (08:31→21:45)
--- NOTE | 2018-09-22 09:33 | PDOC ---
PROGRESS NOTES Chief Complaint Chief Complaint 1. MULTIPLE FALLS etiology multifactorial 2. grade 1 anterolisthesis of C4-5 which is new since the previous study. This is secondary to degenerative facet arthropathy. 3. Alcohol abuse, SEVERE 4. depression 5. hypotension sec to hypovolemia resolved 6. uti, E COLI SEN TO ROCEPHIN, AUGMENTIN chg to po augmentin 7. chest discomfort 8. SINUS TACH DUE TO ETOH WITHDRAWAL 3 9. 2 GM DROP IN HGB 3/ hgb now 10.0 10. severe protein-caloric malnutrition 3 tachy earlier likely from etoh withdrawal cxr mild vascular congestion gave 60 mg iv lasix x 1 3 add coreg, 3 will switch to bumex for better diuresis plan: alcohol withdrawal precautions patient iv rocephin for UTI follow blood cultures OCCULT STOOLS DIETARY SUPPLEMENTS GI CONSULT PLAN 1. Hold norvasc and coreg till BP is consistently adequate. 2. Replace K and Mg per level. 3. Supportive care 4. ETOH withdrawal protocol 5. Orthostatic readings 6. Reinforced compliance and curbing ETOH. 7. will transition to oral PPI 8. heme test stools 9. GI consult possible PUD/ ANEMIAn recommendations greatly appreciated, EGD in the outpatient History of Present Illness History of Present Illness 09/18 SINUS TACH THIS AM RATE 115-140 volume depleted, will bolus with one liter NS UTI SUSPECTED, CONT IV ROCEPHIN PRN ATIVAN 3/ DROP IN HGB MAY BE DUE TO HYDRATION VS GI BLOOD LOSS /3V STILL HAVING WITHDRAWAL SYMPTOMS, COREG ON BOARD CXR MILD PULM VASC CONGESTION 09/21 NO WITHDRAWAL SYMPTOMS / EDEMA NOT A LOT BETTER, RX LASIX 40MG IV BID X 2 DAYS, START COREG 6.25 MG PO BID FOR DD CHF not getting much protein in diet [employer] , Discussed need for heart healthy diet and adequate protein intake, alcohol abstinence 09/22 Patient complaining of generalized edema, will change diruetic therapy today to Bumex and observe response, no other complaints. Vitals Vitals Vital Signs Date Time Temp Pulse Resp B/P (MAP) Pulse Ox O2 Delivery O2 Flow Rate FiO2 09/22/18 08:27 107 144/87 09/22/18 07:00 99.3 18 96 Room Air 99.3 09/21/18 19:46 2.0 Physical Exam General: Alert, Oriented X3, Cooperative, No acute distress Heart: Regular rate ( TACHY), Normal S1, Normal S2, No murmurs Lungs: Clear Abdomen: Normal bowel sounds, Soft, No tenderness Extremities: No clubbing, No cyanosis, No edema (1 PLUS THORACIC ANASARCA) Skin: No breakdown, No significant lesion Assessment and Plan Assessmemt and Plan Problems Medical Problems: (1) Chest pain Status: Acute (2) Fall Status: Acute (3) Shortness of breath Status: Acute Comment Review of Relevant I have reviewed the following items balbir (where applicable) has been applied. Labs Laboratory Tests Test 09/21/18 03:30 White Blood Count 4.8 x10^3/uL (4.0-11.0) Red Blood Count 3.29 x10^6/uL (3.50-5.40) Hemoglobin 10.2 g/dL (12.0-15.5) Hematocrit 31.5 % (36.0-47.0) Mean Corpuscular Volume 96 fL (79-100) Mean Corpuscular Hemoglobin 31 pg (25-35) Mean Corpuscular Hemoglobin Concent 32 g/dL (31-37) Red Cell Distribution Width 19.9 % (11.5-14.5) Platelet Count 212 x10^3/uL (140-400) Neutrophils (%) (Auto) 64 % (31-73) Lymphocytes (%) (Auto) 20 % (24-48) Monocytes (%) (Auto) 12 % (0-9) Eosinophils (%) (Auto) 3 % (0-3) Basophils (%) (Auto) 1 % (0-3) Neutrophils # (Auto) 3.1 x10^3uL (1.8-7.7) Lymphocytes # (Auto) 1.0 x10^3/uL (1.0-4.8) Monocytes # (Auto) 0.6 x10^3/uL (0.0-1.1) Eosinophils # (Auto) 0.1 x10^3/uL (0.0-0.7) Basophils # (Auto) 0.1 x10^3/uL (0.0-0.2) Sodium Level 140 mmol/L (136-145) Potassium Level 3.8 mmol/L (3.5-5.1) Chloride Level 102 mmol/L (98-107) Carbon Dioxide Level 29 mmol/L (21-32) Anion Gap 9 (6-14) Blood Urea Nitrogen 10 mg/dL (7-20) Creatinine 0.8 mg/dL (0.6-1.0) Estimated GFR (Cockcroft-Gault) 72.4 BUN/Creatinine Ratio 13 (6-20) Glucose Level 105 mg/dL (70-99) Calcium Level 8.5 mg/dL (8.5-10.1) Iron Level 53 ug/dL (50-170) Total Iron Binding Capacity 269 ug/dL (250-450) Iron Saturation 20 % (15-34) Ferritin 213 ng/mL (8-252) Total Bilirubin 0.8 mg/dL (0.2-1.0) Aspartate Amino Transf (AST/SGOT) 78 U/L (15-37) Alanine Aminotransferase (ALT/SGPT) 47 U/L (14-59) Alkaline Phosphatase 156 U/L (46-116) Total Protein 5.9 g/dL (6.4-8.2) Albumin 2.1 g/dL (3.4-5.0) Albumin/Globulin Ratio 0.6 (1.0-1.7) Microbiology 09/15/18 Blood Culture - Final, Complete NO GROWTH AFTER 5 DAYS 09/15/18 Urine Culture - Final, Complete 09/15/18 Urine Culture Result 1 (REMIGIO) - Final, Complete 09/15/18 Antimicrobic Susceptibility - Final, Complete Medications Current Medications Sodium Chloride 1,000 ml @ 1,000 mls/hr 1X ONCE IV Last administered on at 15:35; Start 09/15/18 at 15:30; Stop 09/15/18 at 16:29; Status DC Sodium Chloride 1,000 ml @ 1,000 mls/hr 1X ONCE IV Last administered on at 17:09; Start 09/15/18 at 17:00; Stop 09/15/18 at 17:59; Status DC Magnesium Oxide (Magnesium Oxide) 400 mg DAILY PO Last administered on at 08:26; Start 09/15/18 at 18:15 Potassium Chloride (Klor-Con) 40 meq 1X ONCE PO Last administered on at 18:50; Start 09/15/18 at 18:15; Stop 09/15/18 at 18:16; Status DC Ondansetron HCl (Zofran) 4 mg PRN Q8HRS PRN IV NAUSEA/VOMITING; Start 09/15/18 at 18:15; Stop 09/16/18 at 18:14; Status DC Acetaminophen (Tylenol) 650 mg PRN Q4HRS PRN PO FEVER; Start 09/15/18 at 18:15 ; Stop 09/16/18 at 18:14; Status DC Sodium Chloride 1,000 ml @ 1,000 mls/hr 1X ONCE IV Last administered on at 18:51; Start 09/15/18 at 18:45; Stop 09/15/18 at 19:44; Status DC Sodium Chloride 1,000 ml @ 150 mls/hr 1X ONCE IV Last administered on at 22:35; Start 09/15/18 at 18:45; Stop 09/16/18 at 01:24; Status DC Multivitamins 10 ml/Thiamine HCl 100 mg/Folic Acid 1 mg/Sodium Chloride 1,011.2 ml @ 100 mls/ hr DAILY IV Last administered on 09/18/18at 09:57; Start 09/16/18 at 09:00; Stop 09/18/18 at 22:00; Status DC Multivitamins (Thera M Plus) 1 tab DAILY PO Last administered on 09/16/18at 10: 05; Start 09/16/18 at 09:00; Stop 09/16/18 at 14:51; Status DC Folic Acid (Folic Acid) 1 mg DAILY PO Last administered on 09/16/18at 10:05; Start 09/16/18 at 09:00; Stop 09/16/18 at 14:53; Status DC Thiamine HCl 100 mg/Dextrose 51 ml @ 100 mls/hr DAILY IV ; Start 09/16/18 at 09 :00; Stop 09/20/18 at 09:31; Status Cancel Lorazepam (Ativan) 4 mg PRN Q1HR PRN PO For CIWA 8-14; Start 09/15/18 at 21:45 Lorazepam (Ativan) 8 mg PRN Q1HR PRN PO For CIWA 15 or greater; Start 09/15/18 at 21:45 Lorazepam (Ativan) 2 mg PRN Q1HR PRN IV For CIWA 8-14; Start 09/15/18 at 21:45 Lorazepam (Ativan) 4 mg PRN Q1HR PRN IV For CIWA 15 or greater; Start 09/15/18 at 21:45 Haloperidol Lactate (Haldol Inj) 5 mg PRN Q4HRS PRN IVP Hallucinatns,Confusn, Delirium; Start 09/15/18 at 21:45 Diphenhydramine HCl (Benadryl) 25 mg PRN Q15MIN PRN IVP EPS symptoms 2'Haldol admin; Start 09/15/18 at 21:45 Clonidine HCl (Catapres) 0.1 mg PRN Q1HR PRN PO SBP > 180 or DBP > 100, MRX3; Start 09/15/18 at 21:45 Lorazepam (Ativan) 2 mg PRN Q15MIN PRN IV ANXIETY / AGITATION; Start 09/15/18 at 21:45; Stop 09/18/18 at 15:45; Status DC Lorazepam (Ativan) 4 mg PRN Q15MIN PRN IV ANXIETY / AGITATION; Start 09/15/18 at 21:45; Stop 09/18/18 at 15:45; Status DC Ceftriaxone Sodium (Rocephin) 2 gm Q24H IVP Last administered on 09/20/18at 21:28 ; Start 09/15/18 at 22:00; Stop 09/21/18 at 11:48; Status DC Potassium Chloride (Klor-Con) 40 meq 1X ONCE PO ; Start 09/15/18 at 22:00; Stop 09/16/18 at 04:14; Status DC Potassium Chloride (Klor-Con) 20 meq DAILYWBKFT PO Last administered on at 08:28; Start 09/16/18 at 08:00 Sodium Chloride 1,500 ml @ 1,500 mls/hr Q1H IV ; Start 09/15/18 at 21:44; Stop 09/15/18 at 22:44; Status DC Sodium Chloride 500 ml @ 1,000 mls/hr PRN Q30MIN PRN IV SEE COMMENTS; Start at 21:45 Norepinephrine Bitartrate 250 ml @ 0 mls/hr CONT PRN IV SEE I/O RECORD Last administered on 09/16/18at 06:44; Start 09/15/18 at 21:45; Stop 09/18/18 at 05:14 ; Status DC Dobutamine HCl/ Dextrose 250 ml @ 0 mls/hr CONT PRN IV SEE I/O RECORD; Start at 21:45; Stop 09/18/18 at 05:12; Status DC Magnesium Sulfate/ Dextrose 100 ml @ 100 mls/hr 1X ONCE IV Last administered on 09/15/18at 22:22; Start 09/15/18 at 22:00; Stop 09/15/18 at 22:59; Status DC Potassium Chloride (Klor-Con) 70 meq 1X ONCE PO Last administered on at 04:36; Start 09/16/18 at 04:30; Stop 09/16/18 at 04:31; Status DC Vancomycin HCl (Vanco Per Pharmacy) 1 each PRN DAILY PRN MC SEE COMMENTS; Start 09/16/18 at 07:15; Stop 09/16/18 at 08:27; Status DC Vancomycin HCl 1.5 gm/Sodium Chloride 500 ml @ 250 mls/hr 1X ONCE IV ; Start 09/16/18 at 08:00; Stop 09/16/18 at 09:59; Status Cancel Lactobacillus Rhamnosus (Culturelle) 1 cap BID PO Last administered on at 08:26; Start 09/16/18 at 09:00 Lorazepam (Ativan) 1 mg PRN Q6HRS PRN PO ANXIETY / AGITATION; Start 09/16/18 at 08:30 Magnesium Sulfate 50 ml @ 25 mls/hr 1X ONCE IV Last administered on 09/16/18at 15:16; Start 09/16/18 at 10:15; Stop 09/16/18 at 12:14; Status DC Multivitamins (Thera M Plus) 1 tab DAILY PO Last administered on 09/22/18at 08:26 ; Start 09/19/18 at 09:00 Folic Acid (Folic Acid) 1 mg DAILY PO Last administered on 09/22/18at 08:25; Start 09/19/18 at 09:00 Magnesium Sulfate 50 ml @ 25 mls/hr 1X ONCE IV ; Start 09/16/18 at 16:00; Stop 09/16/18 at 17:59; Status Cancel Info (FLU VACCINE SCREEN per RX) 1 each PRN 1X PRN MC SEE COMMENTS; Start 09/17 at 09:15; Status UNV Influenza Virus Vaccine (Afluria Trivalent [id number] Syringe) 0.5 ml ONCE ONCE VAX IM Last administered on 09/17/18 11:57; Start 09/17/18 at 12:00; Stop at 12:01; Status DC Magnesium Sulfate 50 ml @ 25 mls/hr 1X ONCE IV Last administered on 09/17/18 10:54; Start 09/17/18 at 11:00; Stop 09/17/18 at 12:59; Status DC Duloxetine HCl (Cymbalta) 60 mg DAILY PO Last administered on 09/22/18 08:28; Start 09/17/18 at 16:00 Mirtazapine (Remeron) 30 mg QHS PO Last administered on 09/21/18 20:17; Start 09/17/18 at 21:00 Pantoprazole Sodium (Protonix) 40 mg DAILYAC PO Last administered on 09/19/18 08:47; Start 09/17/18 at 16:00; Stop 09/19/18 at 11:23; Status DC Acetaminophen (Tylenol) 650 mg PRN Q4HRS PRN PO HEADACHE Last administered on 08:31; Start 09/17/18 at 21:45 Thiamine Mononitrate (Vitamin B-1) 100 mg DAILY PO Last administered on 08:26; Start 09/19/18 at 09:00 Sodium Chloride 1,000 ml @ 1,000 mls/hr 1X ONCE IV Last administered on 12:00; Start 09/18/18 at 11:00; Stop 09/18/18 at 11:59; Status DC Pantoprazole Sodium (PROTONIX VIAL for IV PUSH) 40 mg DAILYAC IVP Last administered on 09/21/18 08:04; Start 09/20/18 at 07:30; Stop 09/21/18 at 12:01; Status DC Furosemide (Lasix) 60 mg 1X ONCE IVP Last administered on 09/20/18 10:23; Start 09/20/18 at 10:15; Stop 09/20/18 at 10:16; Status DC Carvedilol (Coreg) 6.25 mg BIDWMEALS PO Last administered on 3/5/19at 08:27; Start 09/21/18 at 12:00 Furosemide (Lasix) 40 mg BID92 IVP Last administered on 09/22/18at 08:29; Start 09/21/18 at 14:00; Stop 09/23/18 at 13:59 Amoxicillin/ Clavulanate Potassium (Augmentin 500/ 125mg) 1 tab BID PO ; Start 09/21/18 at 12:00; Status Cancel Ciprofloxacin (Cipro) 250 mg BID PO Last administered on 09/22/18at 08:26; Start 09/21/18 at 12:00 Pantoprazole Sodium (Protonix) 40 mg DAILYAC PO Last administered on 09/22/18at 08:30; Start 09/22/18 at 07:30 Active Scripts Active Reported Protonix (Pantoprazole Sodium) 20 Mg Tablet.dr 2 Tab PO DAILY Mirtazapine 30 Mg Tablet 1 Tab PO QHS Furosemide 40 Mg Tablet 1 Tab PO DAILY Duloxetine Hcl 60 Mg Capsule.dr 60 Mg PO DAILY Carvedilol 25 Mg Tablet 25 Mg PO BIDWMEALS Amlodipine Besylate 5 Mg Tablet 5 Mg PO DAILY Vitals/I & O Vital Sign - Last 24 Hours 09/21/18 09/21/18 09/21/18 09/21/18 11:00 13:27 15:00 17:31 Temp 98.1 98.1 98.1 98.1 Pulse 109 109 120 120 Resp 20 20 B/P (MAP) 141/80 (100) 141/80 128/78 (95) 128/78 Pulse Ox 96 96 O2 Delivery Room Air Room Air 09/21/18 09/21/18 09/21/18 09/22/18 19:43 19:46 23:30 03:44 Temp 98.9 98.4 98.0 98.9 98.4 98.0 Pulse 100 103 111 Resp 18 16 16 B/P (MAP) 109/67 (81) 94/56 (69) 119/70 (86) Pulse Ox 96 95 94 O2 Delivery Room Air Room Air Room Air Room Air O2 Flow Rate 2.0 09/22/18 09/22/18 07:00 08:27 Temp 99.3 99.3 Pulse 107 107 Resp 18 B/P (MAP) 144/87 (106) 144/87 Pulse Ox 96 O2 Delivery Room Air Intake and Output 09/21/18 09/21/18 09/22/18 15:00 23:00 07:00 Intake Total 400 ml 560 ml Balance 400 ml 560 ml KEL IVORY MD Sep 22, 2018 09:33
[2018-09-22 11:00] VITALS: BP 110/73
--- NOTE | 2018-09-22 13:01 | PDOC ---
Subjective: Subjective: Still feels bloated and legs are swollen - says has some swelling and redness around hips too. Objective: Vital Signs: Vital Signs Date Time Temp Pulse Resp B/P (MAP) Pulse Ox O2 Delivery O2 Flow Rate FiO2 09/22/18 11:00 98.3 104 18 110/73 (85) 94 Room Air 98.3 09/22/18 08:00 2.0 Imaging: Abd US IMPRESSION: 1. No cholelithiasis 2. No sonographic evidence for acute cholecystitis. 3. Hepatomegaly and hepatic steatosis 4. Right lower pole renal cystic lesion is seen. PE: GEN: NAD LUNGS: CTAB HEART: RRR ABD: ?less distended EXTREM: BLE edema NEURO/PSYCH: A & O 3 A/P: Edema ?GERD Anemia - iron studies WNL Elevated ALT and Alk Phos, h/o alcohol, hepatic steatosis - Hep panel neg, additional labs pending -- Discussed fatty liver. Continue PPI, plan for outpt EGD. EDELMIRA THOMAS Sep 22, 2018 13:01
[2018-09-22 14:28] VITALS: BP 99/64
[2018-09-22] MEDS: BUMETANIDE 2.5 MG/10 ML VIAL. IV SCH (17:28)
[2018-09-22 19:20] VITALS: BP 104/64
[2018-09-22] MEDS: MIRTAZAPINE 15 MG TABLET PO SCH (21:46)
[2018-09-22 23:25] VITALS: BP 114/69
[2018-09-23 03:25] VITALS: BP 113/67
[2018-09-23 06:23] LABS: IGG1 485 mg/dL (248-810); IGG2 134 mg/dL (130-555); IGG3 34 mg/dL (15-102); IGG4 5 mg/dL (2-96); TOTAL IGG 738 mg/dL (700-1600)
[2018-09-23 07:00] VITALS: BP 138/81
--- NOTE | 2018-09-23 09:20 | PDOC ---
Subjective: Subjective: Still feels bloated. No other complaints. Objective: Vital Signs: Vital Signs Date Time Temp Pulse Resp B/P (MAP) Pulse Ox O2 Delivery O2 Flow Rate FiO2 09/23/18 07:00 98.1 105 18 138/81 (100) 95 Room Air 98.1 09/22/18 20:00 2.0 PE: GEN: NAD LUNGS: CTAB HEART: RRR ABD: S/ND/NT NEURO/PSYCH: A & O 3 A/P: GERD Hepatic steatosis -- DC per primary. Outpt EGD. Avoid alcohol. EDELMIRA THOMAS Sep 23, 2018 09:20
[2018-09-23] MEDS: PANTOPRAZOLE 40 MG TABLET.DR. PO SCH (09:21)
[2018-09-23] MEDS: CARVEDILOL 6.25 MG TABLET. PO SCH (09:21)
[2018-09-23] MEDS: MAGNESIUM OXIDE 400 MG TABLET PO SCH (09:22)
[2018-09-23] MEDS: FOLIC ACID 1 MG TABLET. PO SCH (09:22)
[2018-09-23] MEDS: LACTOBACILLUS RHAMNOSUS GG 1 CAPSULE. PO SCH (09:22)
[2018-09-23] MEDS: MULTIVITAMIN with MINERAL TABLET. PO SCH (09:22)
[2018-09-23] MEDS: POTASSIUM CHLORIDE 20 MEQ TABLET.ER. PO SCH (09:22)
[2018-09-23] MEDS: CIPROFLOXACIN HCL 250 MG TABLET. PO SCH ×2 (09:22→16:22)
[2018-09-23] MEDS: THIAMINE 100 MG TABLET. PO SCH (09:23)
[2018-09-23] MEDS: BUMETANIDE 2.5 MG/10 ML VIAL. IV SCH (09:23)
[2018-09-23] MEDS: DULoxetine HCL 30 MG CAPSULE.DR PO SCH (09:26)
[2018-09-23] MEDS: ACETAMINOPHEN 325 MG TABLET. PO PRN (09:26)
[2018-09-23 11:00] VITALS: BP 144/84
--- NOTE | 2018-09-23 12:17 | NUR ---
SW following. Discussed with RN, pt from home. No PT/OT needs. No SW needs at this time. SW will continue to follow.
[2018-09-23] MEDS ORDERED: THIA100T22 PO (13:02)
[2018-09-23] MEDS ORDERED: FOLI1TAB16 PO (13:02)
[2018-09-23] MEDS ORDERED: CIPR500S2 PO (13:05)
[2018-09-23 14:23] LABS: MITOCHONDRIAL ABDY <20.0 Units (0.0-20.0); SMOOTH MUSCLE AB 7 Units (0-19)
--- NOTE | 2018-09-23 14:36 | PDOC3 ---
Discharge Summary Visit Information Date of Admission: Sep 15, 2018 Date of Discharge: Sep 23, 2018 Admitting Diagnosis: 1. MULTIPLE FALLS Admitting Diagnosis Comment: 1. MULTIPLE FALLS 2. grade 1 anterolisthesis of C4-5 which is new since the previous study. This is secondary to degenerative facet arthropathy. 3. Alcohol abuse 4. depression 5. hypotension sec to hypovolemia 6. uti 7. chest discomfort Final Diagnosis 1. MULTIPLE FALLS etiology multifactorial 2. grade 1 anterolisthesis of C4-5 which is new since the previous study. This is secondary to degenerative facet arthropathy. 3. Alcohol abuse, SEVERE 4. depression 5. hypotension sec to hypovolemia resolved 6. uti, E COLI SEN TO ROCEPHIN, AUGMENTIN chg to po augmentin 7. chest discomfort 8. SINUS TACH DUE TO ETOH WITHDRAWAL 09/19 9. 2 GM DROP IN HGB 09/19 hgb now 10.0 10. severe protein-caloric malnutrition Brief Hospital Course Allergies Allergies Coded Allergies Type Severity Reaction Last Updated Verified tramadol Allergy Intermediate 04/19/16 Yes Vital Signs Vital Signs Date Time Temp Pulse Resp B/P (MAP) Pulse Ox O2 Delivery O2 Flow Rate FiO2 09/23/18 11:00 97.6 133 18 144/84 (104) 99 Room Air 97.6 09/22/18 20:00 2.0 Brief Hospital Course SEEN IN ER WITH complaints of dizziness intermittently since Friday. Patient states she has had 4 falls today following backwards and forwards. She reports she did strike her head denies loss of consciousness. Patient states today around 12 PM she started having midsternal chest pain which increases with inspiration. She reports this discomfort did start after her falls. Patient states it is a pressure and she's felt slightly short of air after her falls. Patient states she has had decreased blood pressures over the past couple of days. Patient states she has not taken any of her medications over the past several days which are cardiac medications and blood pressure medicine. Patient states she has chronic back pain and has a pain pump inserted in her right lower abdomen which provides fentanyl and morphine. Patient states she did go on a alcoholic binge last week with her last drink being on Friday. Patient denies any seizure-like activity. Patient denies any illicit drug use.States she began drinking heavily after the of her a few yrs ago Patient seen in consultation by gastroenterology, Pulomonary and critical care. SHe intially was admitted to the icu due to hypotension. She required levo fed in the first 24 hours of her hospital stay since fluid resuscitation failed to keep mean arterial pressure 65 or above. Patient recovered well after the first 24 hours and she was transitioned to the medical floor. She was seen in consultation by GI workup for her transaminitis and elevated alkaline phosphatase yielded no positive results for hepatitis or any other etiology except for her habitual alcohol intake. Extensive counseling regarding the importance of quitting alcohol intake took place during her hospital stay. The patient was seen in consultation with 5 physical therapy and she was deemed appropriate to transition back home after discharge from hospital stay. Again the importance of staying sober was stressed to the patient prior to discharge she did not percent adverse outcomes and she is in good spirits to be dismissed home he'll be following up with her primary care physician and we have encouraged her to seek support groups in order to stay sober as well. Physical exam: Lungs clear to auscultation bilaterally with good inspiratory effort and cardiovascular S1-S2 regular rhythm no murmurs, rubs Discharge Information Condition at Discharge: Improved Follow Up: Weeks Disposition/Orders: D/C to Home Scheduled Amlodipine Besylate (Amlodipine Besylate) 5 Mg Tablet, 5 MG PO DAILY for htn, ( Reported) Entered as Reported by: LACEY CAMPBELL on 09/16/18955 Last Action: New Order on 09/16/18955 by LACEY CAMPBELL Carvedilol (Carvedilol) 25 Mg Tablet, 25 MG PO BIDWMEALS for CARDIAC, (Reported) Entered as Reported by: LACEY CAMPBELL on 09/16/18955 Last Action: New Order on 09/16/18955 by LACEY CAMPBELL Ciprofloxacin (Cipro) 500 Mg/5 Ml Doris..rec, 500 MG PO BID for UTI for 3 Days, #6 Prescribed by: KEL IVORY MD on 09/23/18 1305 Duloxetine Hcl (Duloxetine Hcl) 60 Mg Capsule.dr, 60 MG PO DAILY for pain, ( Reported) Entered as Reported by: LACEY CAMPBELL on 09/16/18955 Last Action: Converted on 09/17/18 151 by RED MCCABE Folic Acid (Folic Acid) 1 Mg Tablet, 1 MG PO DAILY for SUPPLEMENT for 30 Days, # 30 Prescribed by: KEL IVORY MD on 09/23/18 1302 Furosemide (Furosemide) 40 Mg Tablet, 1 TAB PO DAILY for diuretic, #30 Ref 5 ( Reported) Entered as Reported by: LACEY CAMPBELL on 09/16/18955 Last Action: New Order on 09/16/18955 by LACEY CAMPBELL Mirtazapine (Mirtazapine) 30 Mg Tablet, 1 TAB PO QHS for depression, #30 Ref 1 ( Reported) Entered as Reported by: LACEY CAMPBELL on 09/16/18955 Last Action: Converted on 09/17/181516 by RED MCCABE Pantoprazole Sodium (Protonix) 20 Mg Tablet.dr, 2 TAB PO DAILY for heartburn, # 30 (Reported) Entered as Reported by: LACEY CAMPBELL on 09/16/18955 Last Action: Converted on 09/17/181516 by RED MCCABE Thiamine Mononitrate (Vitamin B-1) 100 Mg Tablet, 100 MG PO DAILY for SUPPLEMENT for 30 Days, #30 Prescribed by: KEL IVORY MD on 09/23/18 1302 KEL IVORY MD Sep 23, 2018 14:36
[2018-09-23 15:00] VITALS: BP 114/62
[2018-09-23] MEDS ORDERED: POTA20TA82 PO (17:19)
[2018-09-23] MEDS ORDERED: BUME1TAB3 PO (17:19)
--- NOTE | 2018-09-23 18:48 | NUR ---
Discharge Note: HERMINIO [place] [address] Discharge instructions and discharge home medications reviewed with patient and a copy given. All questions have been answered and understanding verbalized. The following instructions and handouts were given: Alcohol withdrawal handout prescriptions for vit b, folic acid and ciprofloxacin Ff up with PCP in a week Discontinued lines and drains: peripheral IV intact, patient tolerated removal, no complications noted. Patient discharged to home via wheelchair by transport service(yellow cab)at 1810.
== END 2018-09-23 18:00 | disposition home or self-care (01) | DRG 871 ==
LOC: ER 14:50 → 1 WEST ICU 17:20 → 6 SOUTH 09-17 18:20
PROVIDERS: ADMIT Family Medicine; ATTEND Family Medicine
DX: A41.9 Sepsis, unspecified organism (principal); E43 Unspecified severe protein-calorie malnutrition; S22.39XA Fracture of one rib, unspecified side, initial encounter for closed fracture; N17.9 Acute kidney failure, unspecified; N39.0 Urinary tract infection, site not specified; F10.239 Alcohol dependence with withdrawal, unspecified; E87.6 Hypokalemia; E86.1 Hypovolemia; E83.42 Hypomagnesemia; I10 Essential (primary) hypertension; B96.20 Unspecified Escherichia coli [E. coli] as the cause of diseases classified elsewhere; K21.9 Gastro-esophageal reflux disease without esophagitis; D64.9 Anemia, unspecified; F32.9 Major depressive disorder, single episode, unspecified; G89.29 Other chronic pain; K22.70 Barrett's esophagus without dysplasia; K76.0 Fatty (change of) liver, not elsewhere classified; M43.12 Spondylolisthesis, cervical region; M46.90 Unspecified inflammatory spondylopathy, site unspecified; M47.812 Spondylosis without myelopathy or radiculopathy, cervical region; W18.39XA Other fall on same level, initial encounter; M48.02 Spinal stenosis, cervical region; R29.6 Repeated falls; Z81.8 Family history of other mental and behavioral disorders; Z82.49 Family history of ischemic heart disease and other diseases of the circulatory system; Z91.19 Patient's noncompliance with other medical treatment and regimen; Z90.710 Acquired absence of both cervix and uterus; Y93.89 Activity, other specified; Y92.89 Other specified places as the place of occurrence of the external cause; Y99.8 Other external cause status; Z88.8 Allergy status to other drugs, medicaments and biological substances; Z68.28 Body mass index [BMI] 28.0-28.9, adult
CPT/HCPCS: 36415; 36600; 70450; 70486; 71045; 72125; 72128; 76700; 80048; 80053; 80076; 80307; 81001; 82274; 82607; 82728; 82787; 82805; 83520; 83540; 83550; 83605; 83735; 84145; 84484; 85025; 85027; 85384; 85610; 86255; 86705; 86709; 86803; 87040; 87086; 87186; 87340; 87641; 90471; 90756; 93005; 93306; 96360; 96361; C9113; G0480; J0696; J1940; J3475; J3490; J7030; 83516; 99291-25; Q2035